=== PATIENT | female | born 1970 | race Caucasian/White ===

== ENCOUNTER → 2019-02-11 | Day surgery (SDC) | payer BC ==
[~2019-02-11] MED LIST: ADDERALL 20 MG20 MG PO; AMBIEN10 MG PO; BUPIVACAINE 0.25%/EPI 30ML SDV INJ ONE; CALCIUM PO; DEXAMETHASONE SOD PHOS INJ 4 MG/ML VIAL ONE; EPHEDRINE SULFATE INJ 50 MG/10 ML SYR ONE; FENTANYL CITRATE/PF 100MCG/2 ML INJ ONE; KETOROLAC TROMETHAMINE 30 MG/ML VIAL ONE; LEXAPRO10 MG PO; LIDOCAINE HCL 2% LOCAL INJ 5 ML SDV VIAL INJ ONE; MIDAZOLAM HCL 2 MG/2 ML VIAL ONE; MULTI-VITAMIN1 EACH PO; ONDANSETRON HCL INJ 2MG/ML 2ML 2 MG/ML VIAL ONE; PROPOFOL IV EMULSION 10 MG/ML 20 ML VIAL ONE; RISPERDAL1 MG PO; SEVOFLURANE INHAL SOLN 250 ML PEN BTL ONE; TOPAMAX25 MG PO; VITAMIN B12 PO; VITAMIN C PO; VITAMIN D PO; VITAMIN E PO; WELLBUTRIN SR150 MG PO; Z.0.LAMICTAL200 MG PO; Z.0.PAXIL40 MG PO; tenex PO
--- OUTSIDE RECORDS SUMMARY | 2019-02-11 09:03 | XMS REPORT ---
Author Author [facility] Address Unknown Phone Unavailable Care Team Providers Care Per Diem Clerk Name Role Phone Chan MARS Unavailable Unavailable VLADIMIR WILLS Unavailable Unavailable Problems This patient has no known problems. Allergies, Adverse Reactions, Alerts This patient has no known allergies or adverse reactions. Medications This patient has no known medications. Results Test Description Test Time Test Comments Text Results Atomic Results Result Comments US RENAL RETROPERITONEAL COMP 2018-07-01 14:01:00 [place] [address] Patient Name: TOM CHO MR #: [id number] : 1970 Age/Sex: 47/F Req #: [id number] Adm Physician: Ordered by: HAJA MARS MD Report #: [id number] Location: Room/Bed: Procedure: [id number] US/US RENAL RETROPERITONEAL COMP Exam Date: 07/01/18 Exam Time: 0833 REPORT STATUS: Signed EXAMINATION: Renal ultrasound. CLINICAL HISTORY :Recurrent urinary tract infection COMPARISON: CT abdomen and pelvis 09/21/2011 TECHNIQUE: Grayscale and color Doppler evaluation of the kidneys and bladder was performed in transverse and longitudinal planes. DISCUSSION: RIGHT KIDNEY: The right kidney measures 11.2 cm in length and shows normal renal cortical echogenicity. No hydronephrosis, shadowing calculi or solid mass lesions. LEFT KIDNEY: The left kidney measures 10.8 cm in length and shows normal renal cortical echogenicity. No hydronephrosis, shadowing calculi or solid mass lesions. BLADDER: Unremarkable. Right and left ureteral jets are identified. IMPRESSION: 1. Unremarkable renal ultrasound. Signed by: Dr. Keaton Cleary M.D. on 07/01/2018 2:03 PM Dictated By: KEATON CLEARY MD 140 Transcribed By: JENARO on 07/01/18 140 COPY TO: HAJA MARS MD BREAST ULTRASOUND BILATERAL 2018-03-26 16:24:32 - BREAST ULTRASOUND BILATERALULTRASOUND OF BOTH BREASTS AND BOTH AXILLA: 03/26/2018CLINICAL: Supplemental Screening for Dense Breast. No prior exams were available for comparison. Real-time ultrasound of both breasts and both axilla was performed. No abnormalities were seen sonographically in either axilla. Benign cysts and dilated ducts were seen bilaterally. No solid masses were seen. Clinical breast exam was unremarkable. IMPRESSION: BENIGN There is no sonographic evidence of malignancy. Patient has been informed that she has areas of dense breast tissue that could make it difficult to find a small cancer. A screening mammogram and supplemental ultrasound for dense breast tissue is recommended in 1 year.Sun Cruz M.D. dm/:03/26/2018 16:24:32 Entry: - 03/27/2018 10:34:31Imaging Technologist: Debbi DUNN, [facility] sent: BIRADS 1-2 Normal Ultrasound BI-RADS: 2 Benign SCR MAMM BILATERAL DAMON CAD DIGITAL 2018-03-26 16:23:37 - SCR MAMM BILATERAL DAMON CAD DIGITALBILATERAL DIGITAL SCREENING MAMMOGRAM 3D/2D WITH CAD: 03/26/2018CLINICAL: Asymptomatic. Digital breast tomosynthesis was performed in addition to routine CC and MLO views. Current mammographic images were evaluated by either a [employer]olar M-Vu or a [employer] ImageChecker CAD (computer aided detection system). Comparison is made to exam dated 02/28/2017 mammogram - [facility]. The tissue of both breasts is heterogeneously dense. This may lower the sensitivity of mammography. No suspicious mass, architectural distortion, malignant type calcification, or lymph node abnormality detected. IMPRESSION: NEGATIVEUltrasound pending for additional evaluation. There is no mammographic evidence of malignancy. Sun kovacs/penrad:03/26/2018 16:23:37 Entry: lc - 03/27/2018 08:31:33Imaging Technologist: Laura DUNN, [facility]amm[facility] BI-RADS: 1 Negative HEPTOBILIARY W PHARM [place] [address] Patient Name: TOM RANGEL MR #: [id number] : 1970 Age/Sex: 46/F Acct #: [id number] Req #: [id number] Adm Physician: Ordered by: VLADIMIR WILLS DO Report #: [id number] Location: [place] Room/Bed: Procedure: [id number] NM/HEPTOBILIARY W PHARM Exam Date: 01/10/17 Exam Time: 0830 REPORT STATUS: Signed Hepatobiliary Scan with Gallbladder Ejection Fraction Clinical information: 46 F with RUQ abdominal pain x 2-3 weeks Technique: Following intravenous administration of 6.2 millicuries of Tc-99m mebrofenin, dynamic images of the abdomen in the anterior projection were obtained through 30 minutes. Sincalide (CCK analog) 1.5 micrograms was administered intravenously over 30 minutes with additional imaging for determination of gallbladder ejection fraction. Discussion: Perfusion of the liver is normal. Extraction of tracer by the liver parenchyma is normal. Tracer appears promptly within the biliary tract. The gallbladder begins to fill by 10 minutes post injection of tracer and fills adequately. Tracer is seen in the small bowel during the sincalide infusion. The gallbladder ejection fraction with sincalide is 24% (normal greater than 40%). Impression: 1. Filling of the gallbladder excludes acute cystic duct obstruction/acute cholecystitis. 2. The decreased gallbladder ejection fraction of 24% supports the clinical diagnosis of chronic cholecystitis/gallbladder dyskinesia. Signed by: Dr. Ana Hahn M.D. on 01/10/2017 6:05 PM Dictated By: ANA HAHN MD 04 Transcribed By: JENARO on 01/10/171804 COPY TO: VLADIMIR WILLS DO US ABDOMEN COMPLETE [place] [address] Patient Name: TOM CHO MR #: [id number] : 1970 Age/Sex: 46/F Req #: [id number] [facility] Physician: Ordered by: VLADIMIR WILLS DO Report #: [id number] Location: [place] Room/Bed: Procedure: [id number] US/US ABDOMEN COMPLETE Exam Date: 12/24/16 Exam Time: 0816 REPORT STATUS: Signed PROCEDURE: ABDOMINAL ULTRASOUND COMPARISON: None. INDICATIONS: RUQ Pain FINDINGS: Liver: 12.3 cm. Normal hepatic parenchymal echogenicity. No focal mass. Main portal vein: 1.3 cm. Hepatopedal flow. Gallbladder: No echogenic calculi, gallbladder wall thickening, or pericholecystic fluid. The gallbladder measures 12.6 cm in greatest length and 4.4 cm in greatest width. Common Bile Duct: 3.0 mm. No echogenic filling defect. Sonographic Oh's sign: Negative. Right kidney: 11.9 cm. No solid or cystic mass, echogenic calculi, or hydronephrosis. Normal parenchymal echogenicity. Left kidney: 10.8 cm. No solid or cystic mass, echogenic calculi, or hydronephrosis. Normal parenchymal echogenicity. Spleen: 10.1 cm. No focal mass. Pancreas: The pancreas was insufficiently visualized for comment secondary to overlying bowel gas. Inferior vena cava: Normal. Aorta: Normal. Ascites: None. CONCLUSION: 1. No acute sonographic abnormality. 2. Prominent gallbladder may represent gallbladder hydrops. No sonographic evidence of cholelithiasis or cholecystitis. Dictated by: Anuja Slater M.D. on 12/24/2016 at 9:00 Electronically approved by: Anuja Slater M.D. on 12/24/2016 at 9:00 Dictated By: ANUJA SLATER MD 9 Transcribed By: KAITLIN on 12/24/16899 COPY TO: VLADIMIR WILLS DO
--- OUTSIDE RECORDS SUMMARY | 2019-02-11 09:03 | XMS REPORT ---
Author Author Admin, [place] Organization Unknown Address Unknown Phone Unavailable PROBLEMS Condition Status Date Provider Notes ANXIETY DISORDER, OTHER SPECIFIED active Domo Hayes ADHD, OTHER SPECIFIED active Domo Hayes DEPRESSIVE DISORDER, OTHER SPECIFIED active Domo Hayes ENCOUNTERS Date Type Provider Location Encounter Diagnosis - [facility]ulatory Encounter Domo Hayes [facility]K - Ambulatory Encounter Domo Hayes [facility] UNK - Ambulatory Encounter Domo Hayes [facility] UNK - Ambulatory Encounter Domo Pérez [facility] UNK - Ambulatory Encounter Domo Marie [facility] UNK - Ambulatory Encounter Domo Bañuelos [facility] UNK - Ambulatory Encounter Domo Hayes [facility] UNK - Ambulatory Encounter Domo Hayes [facility] UNK - Ambulatory Encounter Domo Hayes [facility] UNK - Ambulatory Encounter Domo Pérez [facility] DEPRESSIVE DISORDER, OTHER SPECIFIEDADHD, OTHER SPECIFIEDANXIETY DISORDER, OTHER SPECIFIED - Ambulatory Encounter Shagufta [facility] UNK VITAL SIGNS No Information Available Allergies No Known Allergy Information REASON FOR REFERRAL No Information Available RESULTS No Information Available HISTORY OF IMMUNIZATIONS No Information Available HISTORY OF MEDICATION USE Medication Instructions Dates Provider Comments AMBIEN CR 12.5 MG ORAL TABLET EXTENDED RELEASE Take 1 tab By Mouth take at bedtime Domo Hayes WELLBUTRIN XL 300 MG ORAL TABLET EXTENDED RELEASE 24 HOUR Take 1 tab By Mouth Every Morning Domo Hayes LEXAPRO 20 MG ORAL TABLET Take 2 tabs By Mouth take at bedtime Domo Hayes GUANFACINE HCL 1 MG ORAL TABLET Take 1 tab By Mouth Twice a Day Domo Hayes RITALIN 10 MG ORAL TABLET Take 1 tab By Mouth Twice a Day Domo Hayes TOPAMAX 100 MG ORAL TABLET Take 1 tab By Mouth Twice a Day Domo Hayes SOCIAL HISTORY Date Observation Value Provider " smoking status never smoker Domo Hayes drug use, illicit Never Domo Hayes " alcohol use Currently Domo Hayes " smoking status never smoker Domo Hayes " social history reviewed E&M reviewed today Domo Hayes" social history E&M Grew up in [place] - 3rd of 5 children Currently seperated - for 3 years - 3 previous times Boyfriend living with her currently 2nd marrige - first marriage - 2 years 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 [employer] 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 Domo Hayes " family support Grew up in [place] - 3rd of 5 children Domo Hayes " home/family situation, assessment Currently seperated - for 3 years - 3 previous times Boyfriend living with her currently 2nd marrige - first marriage - 2 years Domo Hayes FUNCTIONAL STATUS No Information Available MENTAL STATUS Date Observation Value Provider mental status assessment, judgment fair Domo Hayes " insight (mental status exam) fair Domo Hayes" Mental Status Exam: intelligence oriented to person, oriented to place, oriented to time, oriented to reality Domo Hayes" hallucinations none Domo Hayes" thought content (mental status exam) (E&M) lucid Domo Hayes " mental status assessment, process goal-directed, logical Domo Hayes" mental status assessment, sensorium alert, clear Domo Hayes" affect (mental status exam) congruent, euthymic Domo Hayes" mental status assessment, speech activity normal flow, normal pace, normal pressure, normal rate, normal tone, normal volume, spontaneous Domo Tilleyo " mental status assessment, motor activity normal gait, normal posture, fidgety Domo Hayes " behavior (mental status exam) appropriate, cooperative, responsive Domo Tilleyo " mental appearance (mental status exam) adequate hygiene, appropriate dress Domo Hayes anxiety worry a lot, irritability, many physical complaints, muscle tension Domo Hayes" mental status assessment, judgment fair Domo Hayes" insight (mental status exam) fair Domo Tilleyo " Mental Status Exam: intelligence adequate fund of information, intact memory processes, oriented to person, oriented to place, oriented to time, oriented to reality Domo Hayes " hallucinations none Domo Hayes" thought content (mental status exam) (E&M) lucid Domo Hayes" mental status assessment, process able to abstract, goal-directed, logical Domo Hayes" mental status assessment, sensorium alert, clear Domo Hayes" affect (mental status exam) congruent, euthymic Domo Tilleyo " mental status assessment, speech activity normal flow, normal pace, normal pressure, normal rate, normal tone, normal volume, spontaneous Domo Hayes " mental status assessment, motor activity normal gait, normal posture, fidgety Domo Hayes " behavior (mental status exam) appropriate, cooperative, responsive Domo Tilleyo " mental appearance (mental status exam) adequate hygiene, appropriate dress Domo Hayes MEDICAL EQUIPMENT No Information Available FAMILY HISTORY No Information Available INSURANCE PROVIDERS No Information Available ADVANCE DIRECTIVES No Information Available TREATMENT PLAN Date Name Est Patient Detailed - 37459 Diagnostic evaluation with medical - 73359 HISTORY OF PROCEDURES Procedure Date Procedure Name Provider Procedure Notes Status Diagnostic evaluation with medical - 22247 Domo Hayes completed GOALS No Information Available HEALTH CONCERNS No Information Available
--- OUTSIDE RECORDS SUMMARY | 2019-02-11 09:04 | XMS REPORT ---
Author Author Admin, [place] Organization Unknown Address Unknown Phone Unavailable PROBLEMS Condition Status Date Provider Notes ANXIETY DISORDER, OTHER SPECIFIED active Domo Hayes ADHD, OTHER SPECIFIED active Domo Hayes DEPRESSIVE DISORDER, OTHER SPECIFIED active Domo Hayes ENCOUNTERS Date Type Provider Location Encounter Diagnosis - Ambulatory Encounter Domo Hayes [facility] UNK - Ambulatory Encounter Domo Pérez [facility] UNK - Ambulatory Encounter Domo Bañuelos [facility] UNK - Ambulatory Encounter Domo Hayes [facility] UNK - Ambulatory Encounter Domo Hayes [facility] UNK - Ambulatory Encounter Domo Hayes [facility] UNK - Ambulatory Encounter Doom Pérez [facility] UNK - Ambulatory Encounter Domo Marie [facility]placed [facility] UNK - Ambulatory Encounter Domo Bañuelos [facility] UNK - Ambulatory Encounter Domo Hayes [facility] UNK - Ambulatory Encounter Domo Hayes [facility] UNK - Ambulatory Encounter Domo Hayes [facility] UNK - Ambulatory Encounter Domo Hayes Meredith Pérez [facility] DEPRESSIVE DISORDER, OTHER SPECIFIEDADHD, OTHER SPECIFIEDANXIETY DISORDER, OTHER SPECIFIED - Ambulatory Encounter Shagufta Henderson Replaced [facility] UNK VITAL SIGNS No Information Available Allergies No Known Allergy Information REASON FOR REFERRAL No Information Available RESULTS No Information Available HISTORY OF IMMUNIZATIONS No Information Available HISTORY OF MEDICATION USE Medication Instructions Dates Provider Comments AMBIEN 10 MG ORAL TABLET Take 1 tab By Mouth take at bedtime Domo Hayes WELLBUTRIN XL 300 MG ORAL TABLET EXTENDED RELEASE 24 HOUR Take 1 tab By Mouth Every Morning Domo Hayes LEXAPRO 20 MG ORAL TABLET Take 2 tabs By Mouth take at bedtime Domo Hayes GUANFACINE HCL 1 MG ORAL TABLET Take 1 tab By Mouth Twice a Day Domo Hayes ADDERALL 20 MG ORAL TABLET Take 1 tab By Mouth Twice a Day Domo Hayes TOPAMAX 100 MG ORAL TABLET Take 1 tab By Mouth Twice a Day Domo Hayes SOCIAL HISTORY Date Observation Value Provider smoking status never smoker Domo Hayes " smoking status never smoker Domo Hayes drug use, illicit Never Domo Hayes " alcohol use Currently Domo Hayes " smoking status never smoker Domo Hayes " social history reviewed E&M reviewed today Domo Hayes" social history E&M Grew up in [place] - 3rd of 5 children Currently seperated - for 3 years - 3 previous times Boyfriend living with her currently 2nd marrige - first marriage - 2 years 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 [employer] Domo Hayes " family support Grew up in [place] - 3rd of 5 children Domo Hayes " home/family situation, assessment Currently seperated - for 3 years - 3 previous times Boyfriend living with her currently 2nd marrige - first marriage - 2 years Domo Hayes FUNCTIONAL STATUS No Information Available MENTAL STATUS Date Observation Value Provider mental status assessment, judgment fair Domo Hayes " insight (mental status exam) fair, limited Domo Hayes" Mental Status Exam: intelligence oriented to person, oriented to place, oriented to time, oriented to reality Domo Hayes" hallucinations none Domo Berno " thought content (mental status exam) (E&M) lucid Domo Tilleyo " mental status assessment, process goal-directed, logical Domo Berno " mental status assessment, sensorium alert, clear Domo Berno " affect (mental status exam) incongruent, intense Domo Jareko " mood (mental status exam) " OK " Domo Tilleyo " mental status assessment, speech activity normal flow, normal pace, normal pressure, normal rate, normal tone, normal volume, spontaneous Domo Berno " mental status assessment, motor activity in wheelchair Domo Jareko " behavior (mental status exam) appropriate, cooperative, responsive, fair EC Domo Tilleyo " mental appearance (mental status exam) adequate hygiene, appropriate dress Domo Hayes mental status assessment, judgment fair Domo Tilleyo " insight (mental status exam) fair Domo Berno " Mental Status Exam: intelligence oriented to person, oriented to place, oriented to time, oriented to reality Domo Jareko " hallucinations none Domo Berno " thought content (mental status exam) (E&M) lucid Domo Tilleyo " mental status assessment, process goal-directed, logical Domo Berno " mental status assessment, sensorium alert, clear Domo Berno " affect (mental status exam) congruent, euthymic Domo Tilleyo " mental status assessment, speech activity normal flow, normal pace, normal pressure, normal rate, normal tone, normal volume, spontaneous Domo Berno " mental status assessment, motor activity normal gait, normal posture, fidgety Domo Tilleyo " behavior (mental status exam) appropriate, cooperative, responsive Domo Tilleyo " mental appearance (mental status exam) adequate hygiene, appropriate dress Domo Hayes anxiety worry a lot, irritability, many physical complaints, muscle tension Domo Tilleyo " mental status assessment, judgment fair Domo Tilleyo " insight (mental status exam) fair Domo Berno " Mental Status Exam: intelligence adequate fund of information, intact memory processes, oriented to person, oriented to place, oriented to time, oriented to reality Domo Berno " hallucinations none Domo Berno " thought content (mental status exam) (E&M) lucid Domo Tilleyo " mental status assessment, process able to abstract, goal-directed, logical Domo Berno " mental status assessment, sensorium alert, clear Domo Berno " affect (mental status exam) congruent, euthymic Domo Berno " mental status assessment, speech activity normal flow, normal pace, normal pressure, normal rate, normal tone, normal volume, spontaneous Domo Hayes " mental status assessment, motor activity normal gait, normal posture, fidgety Domo Hayes" behavior (mental status exam) appropriate, cooperative, responsive Domo Hayes" mental appearance (mental status exam) adequate hygiene, appropriate dress Domo Hayes MEDICAL EQUIPMENT No Information Available FAMILY HISTORY No Information Available INSURANCE PROVIDERS No Information Available ADVANCE DIRECTIVES No Information Available TREATMENT PLAN Date Name Est Patient Detailed - 01925 Est Patient Detailed - 04953 Diagnostic evaluation with medical - 96504 HISTORY OF PROCEDURES Procedure Date Procedure Name Provider Procedure Notes Status Diagnostic evaluation with medical - 08992 Domo Hayes completed GOALS No Information Available HEALTH CONCERNS No Information Available
--- OUTSIDE RECORDS SUMMARY | 2019-02-11 09:04 | XMS REPORT ---
Author Author Admin, [place] Organization Unknown Address Unknown Phone Unavailable PROBLEMS Condition Status Date Provider Notes ANXIETY DISORDER, OTHER SPECIFIED active Domo Hayes ADHD, OTHER SPECIFIED active Domo Hayes DEPRESSIVE DISORDER, OTHER SPECIFIED active Domo Hayes ENCOUNTERS Date Type Provider Location Encounter Diagnosis - Ambulatory Encounter Domo Hayes [facility] UNK - Ambulatory Encounter Domo Pérez [facility] UNK - Ambulatory Encounter Domo Bañuelos [facility] UNK - Ambulatory Encounter Domo Hayes [facility] UNK - Ambulatory Encounter Domo Hayes [facility] UNK - Ambulatory Encounter Domo Hayes [facility] UNK - Ambulatory Encounter Domo Pérez [facility] UNK - Ambulatory Encounter Domo Marie [facility] UNK - Ambulatory Encounter Domo Bañuelos [facility] UNK - Ambulatory Encounter Domo Hayes [facility] UNK - Ambulatory Encounter Domo Hayes [facility] UNK - Ambulatory Encounter Domo Hayes [facility] UNK - Ambulatory Encounter Domo Hayes Meredith Pérez [facility] DEPRESSIVE DISORDER, OTHER SPECIFIEDADHD, OTHER SPECIFIEDANXIETY DISORDER, OTHER SPECIFIED - Ambulatory Encounter Shagufta Henderson [facility] UNK VITAL SIGNS No Information Available [...] Hayes" social history E&M Grew up in [place] - 3rd of 5 children Currently seperated - for 3 years - 3 previous times Boyfriend living with her currently 2nd marrige - first marriage - 2 years 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
[2019-02-11] MEDS: CEFTRIAXONE SOD 1 GM/NS 50 ML 50 ML IV ONE (10:14)
[2019-02-11 13:00] VITALS: BP 101/55
--- NOTE | 2019-02-13 19:12 | Operative Report ---
DATE OF PROCEDURE: 02/11/2019 SURGEON: Christiano Rosario MD PREOPERATIVE DIAGNOSIS: Stress urinary incontinence. POSTOPERATIVE DIAGNOSIS: Stress urinary incontinence. OPERATIVE PROCEDURE PERFORMED: Pubovaginal sling using [employer] Fit Advantage. ANESTHESIA: General anesthesia. ESTIMATED BLOOD LOSS: Minimal. INDICATIONS: Ms. Germania Myers is a 48-year-old woman with a long history of mixed urinary incontinence, which has failed conservative therapy. She now presents for management of the stress component. PROCEDURE IN DETAIL: The patient was brought into the operating room, placed in supine position and after administration of general anesthesia, was placed in dorsal lithotomy position and prepped and draped in usual sterile fashion. A Martinez catheter was placed and the balloon inflated. After infiltration using 0.25% Marcaine with epinephrine, a 1 cm incision was made in the mid anterior vaginal mucosa approximately 1 cm proximal to the urethral meatus. Dissection was carried out in and around the periurethral tissues using Metzenbaum scissors. The [employer] Fit Advantage trocars were placed first on the right side and subsequently on the left side and allowed to exit the retropubic space. The trocar exit sites were also infiltrated using 0.25% Marcaine. The Martinez catheter was removed and cystoscopy was performed. This revealed no evidence of injury to the bladder or to the urethra. The bladder was drained in its entirety and the cystoscope was removed. The sling was pulled superiorly such that there was 1 cm gap between the posterior urethra and the sling. The vaginal mucosa was then pulled down over this and then reapproximated closed using a [id number] Vicryl suture. A vaginal pack was subsequently placed after irrigation of the vagina. The sling was cut flushed with the anterior abdominal wall and the trocar exit sites were closed using Dermabond. The patient was returned to supine position and anesthesia was reversed. She was transferred to a bed and taken to the postanesthesia care unit in good condition. Of note, the needle and instrument count was correct at the conclusion of the case. Christiano Rosario MD HLW/MODL /[id number]
== END | disposition home or self-care (01) ==
LOC: OR 09:01
PROVIDERS: ATTEND Urology
DX: N39.3 Stress incontinence (female) (male) (principal); N20.0 Calculus of kidney; R00.1 Bradycardia, unspecified; F32.9 Major depressive disorder, single episode, unspecified; F41.9 Anxiety disorder, unspecified
CPT/HCPCS: 36415; 57288; 84702; 93005; C1758; C1771; J0696; J1100; J1885; J2001; J2250; J2405; J2704; J3010

== ENCOUNTER → 2019-06-18 | Day surgery (SDC) | payer BC ==
[~2019-06-18] MED LIST changes: +ACETAMINOPHEN/CODEINE 300MG - 30MG TAB ONE; +BACTRIM DS TAB1 EACH PO; -BUPIVACAINE 0.25%/EPI 30ML SDV INJ ONE; +BUPIVACAINE HCL 0.5% INJ 30 ML VIAL INJ ONE; +CLINDAMYCIN HC150 MG PO; +CLINDAMYCIN PHOS 900MG/ 50ML 50 ML IV ONE; -EPHEDRINE SULFATE INJ 50 MG/10 ML SYR ONE; -KETOROLAC TROMETHAMINE 30 MG/ML VIAL ONE; -MIDAZOLAM HCL 2 MG/2 ML VIAL ONE; +SEROQUEL100 MG PO; +TENEX PO
--- OUTSIDE RECORDS SUMMARY | 2019-06-18 10:21 | XMS REPORT | Summary of Care ---
Author Author Adina Weller R.N. Unknown Address Unknown Phone Unavailable Care Team Providers Care Canceling Machine Operator Name Role Phone JAQUELIN LOMBARDI M.D. Unavailable Unavailable MALISSA GUAMAN Unavailable Unavailable PRASANNA SAWYER MD Unavailable Unavailable JAQUELIN LOMBARDI MD Unavailable Unavailable Functional Status Name Dates Details Functional status health issues are not documented Status: Name Dates Details Cognitive status health issues are not documented Status: Problems Name Dates Details Closed displaced intra-articular fracture of left calcaneus, initial encounter (825.0, K66.160B) Status: Active Medications Name Dates Details Acetaminophen-Codeine 300-30 MG Oral Tablet TAKE 1 TABLET EVERY 8 HOURS PRN Pain Quantity: 20 JAQUELIN LOMBARDI M.D. * Start : 26-Jan-2019 Active Gabapentin 300 MG Oral Capsule TAKE 1 CAPSULE EVERY 8 HOURS * Quantity: 60 Refills: 0 MALISSA GUAMAN * Start : 02-Feb-2019 Active Allergies and Adverse Reactions Name Dates Details Allergy history not documented Status: Procedures Procedure Dates Details [U] XR CALCANEUS (HEEL) 2 VWS, MIN. LEFT [id number] Date: 02-Apr-2019 Immunization Name Dates Details Immunizations not documented Social History Name Dates Details Unknown if ever smoked Vital Signs Date Test Result Details No Known Vitals to report Results Date Description Value Details Results not documented Plan of Care Name Dates Details Planned Observations Planned Goals not documented Planned Encounters Appointment; JAQUELIN LOMBARDI M.D. On: 13-Apr-2019 8:30 Instructions Name Dates Details Instructions not documented Encounters Appointment; JAQUELIN LOMBARDI M.D. Encounter Diagnosis: Problem not documented On: 05-Jan-2019 7:30 Appointment; JAQUELIN LOMBARDI M.D. Encounter Diagnosis: Problem not documented On: 11-Jan-2019 7:30 Appointment; JAQUELIN LOMBARDI M.D. Encounter Diagnosis: Problem not documented On: 26-Jan-2019 8:30 Appointment; MALISSA LIPSCOMB P.A. Encounter Diagnosis: Problem not documented On: 02-Feb-2019 8:30 Appointment; JAQUELIN LOMBARDI M.D. Encounter Diagnosis: Problem not documented On: 02-Mar-2019 9:15
--- OUTSIDE RECORDS SUMMARY | 2019-06-18 10:21 | XMS REPORT | Summary of Care ---
Author Author Dayami Pennington M.A. Unknown Address Unknown Phone Unavailable Care Team Providers Care Foreign Language Teacher Name Role Phone JAQUELIN LOMBARDI M.D. Unavailable Unavailable MALISSA GUAMAN Unavailable Unavailable PRASANNA SAWYER MD Unavailable Unavailable JAQUELIN LOMBARDI MD Unavailable Unavailable Functional Status Name Dates Details Functional status health issues are not documented Status: Name Dates Details Cognitive status health issues are not documented Status: Problems Name Dates Details Closed displaced intra-articular fracture of left calcaneus, initial encounter (825.0, L56.001D) Status: Active Medications Name Dates Details Acetaminophen-Codeine 300-30 MG Oral Tablet TAKE 1 TABLET EVERY 8 HOURS PRN Pain Quantity: 20 JAQUELIN LOMBARDI M.D. * Start : 26-Jan-2019 Active Gabapentin 300 MG Oral Capsule TAKE 1 CAPSULE EVERY 8 HOURS * Quantity: 60 Refills: 0 DEISI P.A., MALISSA * Start : 02-Feb-2019 Active Allergies and Adverse Reactions Name Dates Details Allergy history not documented Status: Procedures Procedure Dates Details [U] XR CALCANEUS (HEEL) 2 VWS, MIN. LEFT 06391 Date: 30-Apr-2019 Immunization Name Dates Details Immunizations not documented Social History Name Dates Details Unknown if ever smoked Vital Signs Date Test Result Details No Known Vitals to report Results Date Description Value Details [id number] [U] XR CALCANEUS (HEEL) 2 VWS, MIN. LEFT 11536 XR CALCANEUS (HEEL) 2 VWS, MIN. LEFT Images acquired, not reported on this accession number. Plan of Care Name Dates Details Planned Observations Planned Goals not documented Planned Encounters Appointment; JAQUELIN LOMBARDI M.D. On: 04-May-2019 10:00 Appointment; JAQUELIN LOMBARDI M.D. On: 13-Jul-2019 10:00 Interventions Provided Labs/Procedures/Imaging* [U] XR CALCANEUS (HEEL) 2 VWS, MIN. LEFT [id number]; To Be Done: 04 May 2019 Instructions Name Dates Details Instructions not documented [...] Diagnosis: Problem not documented On: 02-Mar-2019 9:15 Appointment; JAQUELIN LOMBARDI M.D. Encounter Diagnosis: Problem not documented On: 13-Apr-2019 8:30 Appointment; JAQUELIN LOMBARDI M.D. Encounter Diagnosis: Problem not documented On: 04-May-2019 10:00
--- OUTSIDE RECORDS SUMMARY | 2019-06-18 10:21 | XMS REPORT ---
Author Author Admin, [place] Organization Unknown Address Unknown Phone Unavailable PROBLEMS Condition Status Date Provider Notes ANXIETY DISORDER, OTHER SPECIFIED active Domo Hayes ADHD, OTHER SPECIFIED active Domo Hayes DEPRESSIVE DISORDER, OTHER SPECIFIED active Domo Hayes ENCOUNTERS Date Type Provider Location Encounter Diagnosis - Ambulatory Encounter Meredith Pérez [facility] UNK - Ambulatory Encounter Domo Hayes [facility]K - Ambulatory Encounter Domo Hayes [facility] UNK - Ambulatory Encounter Domo Pérez [facility] UNK - Ambulatory Encounter Domo Hayes [facility] UNK - Ambulatory Encounter Domo Vora [facility] UNK - Ambulatory Encounter Domo Hayes [facility] UNK - Ambulatory Encounter Domo Pérez [facility] UNK - Ambulatory Encounter Domo Bañuelos [facility] UNK - Ambulatory Encounter Domo Hayes [facility] UNK - Ambulatory Encounter Domo Hayes [facility] UNK - Ambulatory Encounter Domo Hayes [facility] UNK - Ambulatory Encounter Domo Pérez [facility] UNK - Ambulatory Encounter Domo Jarekaubrey Pérez [facility] UNK - Ambulatory Encounter Domo Tilleyaubrey Hayes [facility] UNK - Ambulatory Encounter Domo Jarekaubrey Hayes [facility] UNK - Ambulatory Encounter Domo Tilleyaubrey Hayes [facility] UNK - Ambulatory Encounter Domo Jarekaubrey Hayes [facility] UNK - Ambulatory Encounter Domo Tilleyaubrey Pérez [facility] DEPRESSIVE DISORDER, OTHER SPECIFIEDADHD, OTHER SPECIFIEDANXIETY DISORDER, OTHER SPECIFIED - Ambulatory Encounter Shagufta Henderson [facility] VITAL SIGNS Date Observation Value Provider blood pressure, diastolic 78 mm[Hg] Meredith Beto " blood pressure, systolic 141 mm[Hg] Meredith Beto " pulse rate E&M 75 /min Meredith Beto " weight E&M 126 lbs. Meredith Beto " weight in kilograms E&M 57.27 kg Meredith Beto " method used to obtain blood pressure automatic Meredith Beto " Blood Pressure Position 01 sitting Meredith Beto " blood pressure, site #1 left arm Meredith Beto " height E&M 61.50 [in_i] Meredith Beto " height in centimeters E&M 156.21 cm Meredith Beto blood pressure, diastolic 77 mm[Hg] Crystal Vora " blood pressure, systolic 127 mm[Hg] Crystal Vora " pulse rate E&M 71 /min Crystal Vora " method used to obtain blood pressure automatic Crystal Vora " Blood Pressure Position 01 sitting Crystal Vora " blood pressure, site #1 left arm Crystal Vora " weight E&M 130 lbs. Crystal Vora " weight in kilograms E&M 59.09 kg Crystal Blanka " height E&M 61.50 [in_i] Crystal Walteraneda " height in centimeters E&M 156.21 cm Crystal Walteraneda method used to obtain blood pressure automatic Meredith Beto " Blood Pressure Position 01 sitting Meredith Beto " blood pressure, site #1 right arm Meredith Beto " blood pressure, diastolic 77 mm[Hg] Meredith Beto " blood pressure, systolic 128 mm[Hg] Meredith Beto " pulse rate E&M 80 /min Meredith Beto " weight E&M 201.25 lbs. Meredith Beto " weight in kilograms E&M 91.48 kg Meredith Beto " height E&M 61.50 [in_i] Meredith Beto " height in centimeters E&M 156.21 cm Meredith Beto method used to obtain blood pressure automatic Meredith Beto " Blood Pressure Position 01 sitting Meredith Beto " blood pressure, site #1 left arm Meredith Beto " blood pressure, diastolic 81 mm[Hg] Meredith Beto " blood pressure, systolic 130 mm[Hg] Meredith Beto " pulse rate E&M 79 /min Meredith Beto " weight E&M 132.38 lbs. Meredith Beto " weight in kilograms E&M 60.17 kg Meredith Beto " height E&M 61.50 [in_i] Meredith Beto " height in centimeters E&M 156.21 cm Meredith Beto method used to obtain blood pressure automatic Meredith Beto " Blood Pressure Position 01 sitting Meredith Beto " blood pressure, site #1 right arm Meredith Beto " blood pressure, diastolic 76 mm[Hg] Meredith Beto " blood pressure, systolic 127 mm[Hg] Meredith Beto " pulse rate E&M 74 /min Meredith Beto " weight E&M 132.13 lbs. Meredith Beto " weight in kilograms E&M 60.06 kg Meredith Beto " height in centimeters E&M 156.21 cm Meredith Beto " height E&M 61.5 [in_i] Meredith Beto Allergies No Known Allergy Information REASON FOR REFERRAL No Information Available RESULTS No Information Available HISTORY OF IMMUNIZATIONS No Information Available HISTORY OF MEDICATION USE Medication Instructions Dates Provider Comments SEROQUEL 100 MG ORAL TABLET Take 1 tab By Mouth take at bedtime Domo Hayes AMBIEN 10 MG ORAL TABLET Take 1 tab By Mouth take at bedtime Domo Hayes WELLBUTRIN XL 300 MG ORAL TABLET EXTENDED RELEASE 24 HOUR Take 1 tab By Mouth Every Morning Domo Freddy LEXAPRO 20 MG ORAL TABLET Take 2 tabs By Mouth take at bedtime Domo Freddy GUANFACINE 1 MG TABLET TAKE 1 TAB BY MOUTH TWICE A DAY Domo Hayes ADDERALL 20 MG ORAL TABLET Take 1 tab By Mouth Twice a Day Domo Freddy TOPIRAMATE 100 MG TABLET TAKE 1 TABLET BY MOUTH TWICE A DAY Domo Hayes SOCIAL HISTORY Date Observation Value Provider smoking status never smoker Domo Hayes smoking status never smoker Domo Hayes smoking status never smoker Domo Hayes " smoking status never smoker Domo Hayes drug use, illicit Never Domo Hayes " alcohol use Currently Domo Hayes " smoking status never smoker Domo Hayes " social history reviewed E&M reviewed today Domo Hayes" social history E&M Grew up in [place] - 3rd of 5 children Currently seperated - for 3 years - 3 previous times Boyfriend living with her currently 2nd marrige - first marriage - 2 years 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 [employer] 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 Domo Hayes " family support Grew up in [place] - 3rd of 5 children Domo Hayes " home/family situation, assessment Currently seperated - for 3 years - 3 previous times Boyfriend living with her currently 2nd marrige - first marriage - 2 years Domo Hayes FUNCTIONAL STATUS No Information Available MENTAL STATUS Date Observation Value Provider mental status assessment, judgment fair Domo Hayes " insight (mental status exam) fairDomo " Mental Status Exam: intelligence oriented to person, oriented to place, oriented to time, oriented to reality Domo Hayes " hallucinations none Domo Hayes " thought content (mental status exam) (E&M) lucid Domo Hayes " mental status assessment, process goal-directed, logical Domo Hayes" mental status assessment, sensorium alert, clear Domo Berno " affect (mental status exam) congruent, euthymic, normal intensity, normal range Domo Berno " mood (mental status exam) " more irritable " Domo Berno " mental status assessment, speech activity normal flow, normal pace, normal pressure, normal rate, normal tone, normal volume, spontaneous Domo Berno " mental status assessment, motor activity wearing boot Domo Berno " behavior (mental status exam) appropriate, cooperative, responsive, fair EC Domo Berno " mental appearance (mental status exam) adequate hygiene, appropriate dress Domo Tilleyo affect (mental status exam) congruent, euthymic, normal intensity, normal range Domo Berno " mental status assessment, judgment fair Domo Berno " insight (mental status exam) fair, Domo Berno " Mental Status Exam: intelligence oriented to person, oriented to place, oriented to time, oriented to reality Domo Berno " hallucinations none Domo Berno " thought content (mental status exam) (E&M) lucid Domo Berno " mental status assessment, process goal-directed, logical Domo Berno " mental status assessment, sensorium alert, clear Domo Berno " mood (mental status exam) " better " Domo Berno " mental status assessment, speech activity normal flow, normal pace, normal pressure, normal rate, normal tone, normal volume, spontaneous Domo Berno " mental status assessment, motor activity has knee scooter Domo Berno " behavior (mental status exam) appropriate, cooperative, responsive, fair EC Domo Berno " mental appearance (mental status exam) adequate hygiene, appropriate dress Domo Hayes mental status assessment, judgment fair Domo Berno " insight (mental status exam) fair, limited Domo Berno " Mental Status Exam: intelligence oriented to person, oriented to place, oriented to time, oriented to reality Domo Berno " hallucinations none Domo Berno " thought content (mental status exam) (E&M) lucid Domo Berno " mental status assessment, process goal-directed, logical Domo Berno " mental status assessment, sensorium alert, clear Domo Berno " affect (mental status exam) incongruent, intense Domo Berno " mood (mental status exam) " OK " Domo Berno " mental status assessment, speech activity normal flow, normal pace, normal pressure, normal rate, normal tone, normal volume, spontaneous Domo Berno " mental status assessment, motor activity in wheelchair Domo Berno " behavior (mental status exam) appropriate, cooperative, responsive, fair EC Domo Tilleyo " mental appearance (mental status exam) adequate hygiene, appropriate dress Domo Tilleyaubrey mental status assessment, judgment fair Domo Tilleyo [...] activity normal gait, normal posture, fidgety Domo Berno " behavior (mental status exam) appropriate, cooperative, responsive Domo Berno " mental appearance (mental status exam) adequate hygiene, appropriate dress Domo Hayes anxiety worry a lot, irritability, many physical complaints, muscle tension Domo Berno " mental status assessment, judgment fair Domo [...] activity normal gait, normal posture, fidgety Domo Berno " behavior (mental status exam) appropriate, cooperative, responsive Domo Berno " mental appearance (mental status exam) adequate hygiene, appropriate dress Domo Tilleyo MEDICAL EQUIPMENT No Information Available FAMILY HISTORY No Information Available INSURANCE PROVIDERS No Information Available ADVANCE DIRECTIVES No Information Available TREATMENT PLAN Date Name Est Patient Detailed - 39267 Est Patient Exp Problem - 38672 Est Patient Detailed - 19103 Est Patient Detailed - 07384 Diagnostic evaluation with medical - 96348 HISTORY OF PROCEDURES Procedure Date Procedure Name Provider Procedure Notes Status Diagnostic evaluation with medical - 52060 Domo Hayes completed GOALS No Information Available HEALTH CONCERNS No Information Available
--- OUTSIDE RECORDS SUMMARY | 2019-06-18 10:21 | XMS REPORT ---
Author Author Admin, [place] Organization Unknown Address Unknown Phone Unavailable PROBLEMS Condition Status Date Provider Notes ANXIETY DISORDER, OTHER SPECIFIED active Domo Hayes ADHD, OTHER SPECIFIED active Domo Hayes DEPRESSIVE DISORDER, OTHER SPECIFIED active Domo Hayes ENCOUNTERS Date Type Provider Location Encounter Diagnosis - Ambulatory Encounter Domo Vora [facility] UNK - Ambulatory Encounter Domo Hayes [facility] - Ambulatory Encounter Domo Pérez [facility] UNK - Ambulatory Encounter Domo Bañuelos [facility] UNK - Ambulatory Encounter Domo Hayes [facility] UNK - Ambulatory Encounter Domo Hayes [facility] UNK - Ambulatory Encounter Domo Hayes [facility] UNK - Ambulatory Encounter Domo Pérez [facility] UN[facility] - Ambulatory Encounter Domo Marie [facility] - Ambulatory Encounter Domo Hayes [facility] UNK - Ambulatory Encounter Domo Hayes [facility] UNK - Ambulatory Encounter Domo Hayes [facility] UNK - Ambulatory Encounter Domo Moreiracy Beto [facility] DEPRESSIVE DISORDER, OTHER SPECIFIEDADHD, OTHER SPECIFIEDANXIETY DISORDER, OTHER SPECIFIED - Ambulatory Encounter Shagufta Henderson [facility] UNK VITAL SIGNS No Information Available Allergies [...] Mouth take at bedtime Domo Hayes GUANFACINE 1 MG TABLET TAKE 1 TAB BY MOUTH TWICE A DAY Domo Hayes ADDERALL 20 MG ORAL TABLET Take 1 tab By Mouth Twice a Day Domo Hayes TOPIRAMATE 100 MG TABLET TAKE 1 TABLET [...] social history reviewed E&M reviewed today Domo Hayes " social history E&M Grew up in [place] - 3rd of 5 children Currently seperated - for 3 years - 3 previous times Boyfriend living with her currently 2nd marrige - first marriage - 2 years 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 [place] [employer] 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 Domo Hayes " family support Grew up in [place] - 3rd of 5 children Domo Hayes " home/family situation, assessment Currently seperated - for 3 years - 3 previous times Boyfriend living with her currently 2nd marrige - first marriage - 2 years Domo Hayes FUNCTIONAL STATUS No Information Available MENTAL STATUS Date Observation Value Provider affect (mental status exam) congruent, euthymic, normal [...] (mental status exam) adequate hygiene, appropriate dress Dmoo Hayes mental status assessment, judgment fair Domo [...] status exam) adequate hygiene, appropriate dress Domo Freddy mental status assessment, judgment fair Domo Berno " insight (mental status exam) fair Domo [...] irritability, many physical complaints, muscle tension Domo Hayes " mental status assessment, judgment fair Domo Hayes " insight (mental status exam) fair Domo Tilleyo " Mental Status Exam: intelligence adequate fund of information, intact memory processes, oriented to person, oriented to place, oriented to time, oriented to reality Domo Hayes " hallucinations none Domo Hayes " thought content (mental status exam) (E&M) lucid Domo Hayes" mental status assessment, process able to abstract, goal-directed, logical Domo Hayes " mental status assessment, sensorium alert, clear Domo Tilleyo " affect (mental status exam) congruent, euthymic [...] Available TREATMENT PLAN Date Name Est Patient Exp Problem - 25050 Est Patient Detailed - 61725 Est Patient Detailed - 98527 Diagnostic evaluation with medical - 42355 HISTORY OF PROCEDURES Procedure Date Procedure Name Provider Procedure Notes Status Diagnostic evaluation with medical - 57168 Domo Hayes completed GOALS No Information Available HEALTH CONCERNS No Information Available
--- OUTSIDE RECORDS SUMMARY | 2019-06-18 10:21 | XMS REPORT | Summary of Care ---
Author Author Shira Chavarria Organization Unknown Address [facility] Phone Unavailable Care Team Providers Care Toolroom Machinist Name Role Phone JAQUELIN LOMBARDI M.D. Unavailable Unavailable Shira Chavarria Unavailable Unavailable MALISSA GUAMAN Unavailable Unavailable PRASANNA SAWYER MD Unavailable Unavailable JAQUELIN LOMBARDI MD Unavailable Unavailable Functional Status Name Dates Details Functional status health issues are not documented Status: Name Dates Details Cognitive status health issues are not documented Status: Problems Name Dates Details Closed displaced intra-articular fracture of left calcaneus, initial encounter (825.0, I72.005L) Status: Active Medications Name Dates Details Acetaminophen-Codeine 300-30 MG Oral Tablet TAKE 1 TABLET EVERY 8 HOURS PRN Pain Quantity: 20 JAQUELIN LOMBARDI M.D. * Start : 26-Jan-2019 Active Gabapentin 300 MG Oral Capsule TAKE 1 CAPSULE EVERY 8 HOURS * Quantity: 60 Refills: 0 DEISI Robert.MALISSA Mijares * Start : 02-Feb-2019 Active Allergies and Adverse Reactions Name Dates Details Allergy history not documented Status: Procedures Procedure Dates Details Procedures not documented Immunization Name Dates Details Immunizations not documented Social History Name Dates Details Unknown if ever smoked Vital Signs Date Test Result Details No Known Vitals to report Results Date Description Value Details [id number] [U] XR CALCANEUS (HEEL) 2 VWS, MIN. LEFT 59457 XR CALCANEUS (HEEL) 2 VWS, MIN. LEFT Images acquired, not reported on this accession number. Plan of Care Name Dates Details Planned Observations Planned Goals not documented Planned Encounters Appointment; JAQUELIN LOMBARDI M.D. On: 13-Jul-2019 10:00 Instructions Name Dates Details Instructions not documented [...]
--- OUTSIDE RECORDS SUMMARY | 2019-06-18 10:21 | XMS REPORT ---
Author Author Admin, [place] Organization Unknown Address Unknown Phone Unavailable PROBLEMS Condition Status Date Provider Notes ANXIETY DISORDER, OTHER SPECIFIED active Domo Hayes ADHD, OTHER SPECIFIED active Domo Hayes DEPRESSIVE DISORDER, OTHER SPECIFIED active Domo Hayes ENCOUNTERS Date Type Provider Location Encounter Diagnosis - Ambulatory Encounter Domo Vora [facility] UNK - Ambulatory Encounter Domo Hayes [facility] - Ambulatory Encounter Domo Pérez [facility] UNK - Ambulatory Encounter Domo Bañuelos [facility] UNK - Ambulatory Encounter Domo Hayes [facility] UNK - Ambulatory Encounter Domo Hayes [facility] UNK - Ambulatory Encounter Domo Hayes [facility] UNK - Ambulatory Encounter Domo Pérez [facility] UN[facility] - Ambulatory Encounter Domo Marie [facility] [...] OTHER SPECIFIED - Ambulatory Encounter Shagufta Henderson [facility] UNK VITAL SIGNS No Information [...] " social history E&M Grew up in [place] - 3rd of 5 children Currently seperated - for 3 years - 3 previous times Boyfriend living with her currently 2nd marrige - first marriage - 2 years 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 [place] [employer] 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 Domo Hayes " family support Grew up in [place] - 3rd of 5 children Domo Hayes [...] (mental status exam) adequate hygiene, appropriate dress Doom Hayes MEDICAL EQUIPMENT No Information Available FAMILY HISTORY No Information Available INSURANCE PROVIDERS No Information Available ADVANCE DIRECTIVES No Information Available TREATMENT PLAN Date Name Est Patient Exp Problem - 21347 Est Patient Detailed - 27688 Est Patient Detailed - 74114 Diagnostic evaluation with medical - 37457 HISTORY OF PROCEDURES Procedure Date Procedure Name Provider Procedure Notes Status Diagnostic evaluation with medical - 43674 Domo Hayes completed GOALS No Information Available HEALTH CONCERNS No Information Available
--- OUTSIDE RECORDS SUMMARY | 2019-06-18 10:22 | XMS REPORT ---
Author Author Admin, [place] Organization Unknown Address Unknown Phone Unavailable PROBLEMS Condition Status Date Provider Notes ANXIETY DISORDER, OTHER SPECIFIED active Domo Hayes ADHD, OTHER SPECIFIED active Domo Hayes DEPRESSIVE DISORDER, OTHER SPECIFIED active Domo Hayes ENCOUNTERS Date Type Provider Location Encounter Diagnosis - Ambulatory Encounter Meredith Pérez [facility]K - Ambulatory Encounter Domo Hayes [facility] - Ambulatory Encounter Domo Hayes [facility] - Ambulatory Encounter Domo Pérez [facility] UNK - Ambulatory Encounter Domo Hayes [facility] UNK - Ambulatory Encounter Domo Vora [facility] UNK - Ambulatory Encounter Domo Hayes [facility] UNK - Ambulatory Encounter Domo Pérez [facility] UNK - Ambulatory Encounter Domo Bañuelos [facility] UNK - Ambulatory Encounter Domo Hayes [facility] UNK - Ambulatory Encounter Domo Hayes [facility] UNK - Ambulatory Encounter Domo Hayes [facility] UNK - Ambulatory Encounter Doom Pérez [facility] UNK - Ambulatory Encounter Domo Jarekaubrey Pérez [facility] UNK - Ambulatory Encounter Domo Tilleyaburey Hayes [facility]K - Ambulatory Encounter Domo Jarekaubrey Hayes [facility] UNK - Ambulatory Encounter Domo Tilleyaubrey Hayes [facility] UNK - Ambulatory Encounter Domo Jarekaubrey Hayes [facility] UNK - Ambulatory Encounter Domo Tilleyaubrey Pérez [facility] DEPRESSIVE DISORDER, OTHER SPECIFIEDADHD, OTHER SPECIFIEDANXIETY DISORDER, OTHER SPECIFIED - Ambulatory Encounter Shagufta Henderson [facility] VITAL SIGNS Date Observation Value [...] Hayes" social history E&M Grew up in [place] - 3rd of 5 children Currently seperated - for 3 years - 3 previous times Boyfriend living with her currently 2nd marrige - first marriage - 2 years 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 [employer] [facility] 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 Domo Hayes " family support Grew up in [place] - 3rd of 5 children Domo Hayes [...] exam) appropriate, cooperative, responsive, fair EC Domo Tlileyo " mental appearance (mental status exam) adequate [...] PLAN Date Name Est Patient Detailed - 09373 Est Patient Exp Problem - 82783 Est Patient Detailed - 80790 Est Patient Detailed - 69834 Diagnostic evaluation with medical - 32030 HISTORY OF PROCEDURES Procedure Date Procedure Name Provider Procedure Notes Status Diagnostic evaluation with medical - 62358 Domo Hayes completed GOALS No Information Available HEALTH CONCERNS No Information Available
--- OUTSIDE RECORDS SUMMARY | 2019-06-18 10:22 | XMS REPORT ---
Author Author Admin, [place] Organization Unknown Address Unknown Phone Unavailable PROBLEMS Condition Status Date Provider Notes ANXIETY DISORDER, OTHER SPECIFIED active Domo Hayes ADHD, OTHER SPECIFIED active Domo Hayes DEPRESSIVE DISORDER, OTHER SPECIFIED active Domo Hayes ENCOUNTERS Date Type Provider Location Encounter Diagnosis - Ambulatory Encounter Meredith Pérez [facility] - Ambulatory Encounter Domo Hayes [facility]K - Ambulatory Encounter Domo Hayes [facility] UNK - Ambulatory Encounter Domo Pérez [facility] UNK - Ambulatory Encounter Domo Hayes [facility] UNK - Ambulatory Encounter Domo Vora [facility] UNK - Ambulatory Encounter Domo Hayes [facility] - Ambulatory Encounter Domo Pérez [facility] UNK - Ambulatory Encounter Domo Bañuelos [facility] UNK - Ambulatory Encounter Domo Hayes [facility] UNK - Ambulatory Encounter Domo Hayes [facility] UNK - Ambulatory Encounter Domo Hayes [facility] UNK - Ambulatory Encounter Domo Pérez [facility] UNK - Ambulatory Encounter Domo Jarekaubrey Pérez [facility] UNK - Ambulatory Encounter Domo Tilleyaubrey Hayes [facility] UNK - Ambulatory Encounter Domo Jarekaubrey Hayes [facility] UNK - Ambulatory Encounter Domo Tilleyaubrey Hayes [facility] UNK - Ambulatory Encounter Domo Jarekaubrey Hayes [facility] UNK - Ambulatory Encounter Domo Tilleyaubrey Pérez [facility] DEPRESSIVE DISORDER, OTHER SPECIFIEDADHD, OTHER SPECIFIEDANXIETY DISORDER, OTHER SPECIFIED - Ambulatory Encounter Shagufta Henderson [facility] K VITAL SIGNS Date Observation Value [...] Hayes" social history E&M Grew up in [place] - 3rd of 5 children Currently seperated - for 3 years - 3 previous times Boyfriend living with her currently 2nd marrige - first marriage - 2 years 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 [employer] 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
--- OUTSIDE RECORDS SUMMARY | 2019-06-18 10:22 | XMS REPORT | Summary of Care ---
Author Author Nithin Robb, Adina Coughlin Unknown Address Unknown Phone Unavailable Care Team Providers Care Upper Stitcher Name Role Phone JAQUELIN LOMBARDI M.D. Unavailable Unavailable MALISSA GUAMAN Unavailable Unavailable PRASANNA SAWYER MD Unavailable Unavailable JAQUELIN LOMBARDI MD Unavailable Unavailable Functional Status Name Dates Details Functional status health issues are not documented Status: Name Dates Details Cognitive status health issues are not documented Status: Problems Name Dates Details Closed displaced intra-articular fracture of left calcaneus, initial encounter (825.0, S92.047W) Status: Active Medications Name Dates Details Acetaminophen-Codeine 300-30 MG Oral Tablet TAKE 1 TABLET EVERY 8 HOURS PRN Pain Quantity: 20 JAQUELIN LOMBARDI M.D. * Start : 26-Jan-2019 Active Gabapentin 300 MG Oral Capsule TAKE 1 CAPSULE EVERY 8 HOURS * Quantity: 60 Refills: 0 DEISI P.A.MALISSA * Start : 02-Feb-2019 Active Acetaminophen-Codeine 300-30 MG Oral Tablet TAKE 1 TABLET EVERY 8 HOURS PRN Pain * Quantity: 30 Refills: 0 JAQUELIN LOMBARDI M.D. * Start : 01-Jun-2019 Active Allergies and Adverse Reactions Name Dates Details Allergy history not documented Status: Procedures Procedure Dates Details [U] XR CALCANEUS (HEEL) 2 VWS, MIN. LEFT 75801 Date: 01-Jun-2019 Immunization Name Dates Details Immunizations not documented Social History Name Dates Details Tobacco smoking consumption unknown (finding) Vital Signs Date Test Result Details No Known Vitals to report Results Date Description Value Details [id number] [U] XRAY ANKLE MIN 3 VWS LEFT 12859 XR ANKLE MIN 3 VWS LEFT Images acquired, not reported on this accession number. Plan of Care Name Dates Details Planned Observations Planned Goals not documented Planned Encounters Appointment; JAQUELIN LOMBARDI M.D. On: 13-Jul-2019 10:00 Interventions Provided Medication Changes* Acetaminophen-Codeine 300-30 MG Oral Tablet - Start Labs/Procedures/Imaging* [U] XR CALCANEUS (HEEL) 2 VWS, MIN. LEFT 30779; To Be Done: 01 Jun 2019 * [U] XRAY ANKLE MIN 3 VWS LEFT 68417; Done: 01 Jun 2019 Instructions Name Dates Details Instructions not [...] Diagnosis: Problem not documented On: 04-May-2019 10:00 Appointment; JAQUELIN LOMBARDI M.D. Encounter Diagnosis: Problem not documented On: 01-Jun-2019 11:30
--- OUTSIDE RECORDS SUMMARY | 2019-06-18 10:22 | XMS REPORT | Summary of Care ---
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 Unavailable Unavailable MALISSA GUAMAN Unavailable Unavailable PRASANNA SAWYER MD Unavailable Unavailable JAQUELIN LOMBARDI MD Unavailable Unavailable Functional Status Name Dates Details Functional status health issues are not documented Status: Name Dates Details Cognitive status health issues are not documented Status: Problems Name Dates Details Closed displaced intra-articular fracture of left calcaneus, initial encounter (825.0, P65.194D) Status: Active Medications Name Dates Details Acetaminophen-Codeine [...] XR CALCANEUS (HEEL) 2 VWS, MIN. LEFT 59818 Date: 01-Jun-2019 [U] XRAY ANKLE MIN 3 VWS LEFT 50637 Date: 01-Jun-2019 Immunization Name Dates Details Immunizations not documented Social History Name Dates Details Tobacco smoking consumption unknown (finding) Vital Signs Date Test Result Details No Known Vitals to report Results Date Description Value Details Results not documented Plan of Care Name Dates Details Planned Observations Planned Goals not documented Planned Encounters Appointment; JAQUELIN LOMBARDI M.D. On: 01-Jun-2019 11:30 Appointment; JAQUELIN LOMBARDI M.D. On: 13-Jul-2019 10:00 Interventions Provided Labs/Procedures/Imaging* [U] XR CALCANEUS (HEEL) 2 VWS, MIN. LEFT 50761; To Be Done: 01 Jun 2019 * [U] XRAY ANKLE MIN 3 VWS LEFT 79758; To Be Done: 01 Jun 2019 Instructions Name Dates [...]
[2019-06-18 11:27] LABS: BASOPHILS % 0.5 % (0.0-1.0); HEMATOCRIT 39.7 % (34.2-44.1); HEMOGLOBIN 12.8 g/dL (12.0-16.0); LYMPHOCYTES # (AUTO) 0.9 (1.0-3.2); LYMPHOCYTES % 24.5 % (18.0-39.1); MEAN CORPUSCULAR HEMOGLOBIN 31.7 pg (28-32); MEAN CORPUSCULAR HGB CONC 32.2 g/dL (31-35); MEAN CORPUSCULAR VOLUME 98.3 fL (81-99); MONOCYTES # (AUTO) 0.6 (0.2-0.8); MONOCYTES % 14.3 % (4.4-11.3); NEUTROPHILS # (AUTO) 2.3 (2.1-6.9); NEUTROPHILS % 59.4 % (38.7-80.0); PLATELET COUNT 136 x10e3/uL (140-360); RED BLOOD COUNT 4.04 x10e6/uL (3.6-5.1)
[2019-06-18 11:40] LABS: ANION GAP 9.7 mmol/L (8-16); BLOOD UREA NITROGEN 9 mg/dL (7-26); BUN/CREATININE RATIO 12 (6-25); CARBON DIOXIDE 28 mmol/L (22-29); CHLORIDE 106 mmol/L (98-107); CREATININE, SERUM 0.78 mg/dL (0.57-1.11); EST GLOMERULAR FILTRATION RATE > 60 ML/MIN (60-); GLUCOSE 92 mg/dL (74-118); POTASSIUM 4.7 mmol/L (3.5-5.1); SODIUM 139 mmol/L (136-145)
--- NOTE | 2019-06-18 13:49 | Operative Report ---
DATE OF PROCEDURE: 06/18/2019 SURGEON: Rob Miller MD PREOPERATIVE DIAGNOSIS: Abscess, right axilla. POSTOPERATIVE DIAGNOSIS: Abscess, right axilla. PROCEDURE PERFOMED: Incision and drainage of abscess, right axilla with incisional biopsy from abscess right axilla. INTERNATIONAL COORDINATOR: None. ANESTHESIA: General. INDICATIONS AND FINDINGS: The patient is a 48-year-old female presented with complaints of pain and swelling in the right axilla several days ago and getting worse. At surgery there was found to be an abscess in her axilla, which involved the skin and subcutaneous tissue with some irregular tissue beneath the skin, which was biopsied. Abscess contained approximately 5 mL of purulent fluid. TECHNIQUE: After adequate general anesthesia, the patient in supine position, the right axilla was prepped and draped in sterile fashion with ChloraPrep solution. Incision was made over the area of swelling and through the skin and abscess cavity was entered. About 5 mL of purulent fluid was drained. Sample taken for culture and sensitivity. There was some irregular tissue beneath the skin and some of this tissue was excised as a biopsy. Hemostasis achieved with electrocautery. The wound was irrigated with saline inspected for hemostasis which was seen to be adequate. The wound was then packed open with half-inch iodoform gauze and sterile dressing applied. The patient tolerated the procedure well. Estimated blood loss was 5 mL. There were no complications. All counts were correct. The patient was taken to the recovery room in satisfactory condition. Rob Miller MD DWG/MODL /[id number] cc: Faith Marin MD
[2019-06-18 14:35] VITALS: BP 104/71
== END | disposition home or self-care (01) ==
LOC: OR 10:18
PROVIDERS: ATTEND Surgery
DX: L02.411 Cutaneous abscess of right axilla (principal)
CPT/HCPCS: 10060; 36415; 80048; 81025; 85025; 87071; 87075; 87186; 87205; 88304; 93005; J1100; J2001; J2405; J2704; J3010

== ENCOUNTER → 2019-07-23 | Outpatient (CLI) | payer BC, OTHER ==
[~2019-07-23] MED LIST changes: -ACETAMINOPHEN/CODEINE 300MG - 30MG TAB ONE; -BUPIVACAINE HCL 0.5% INJ 30 ML VIAL INJ ONE; -CLINDAMYCIN PHOS 900MG/ 50ML 50 ML IV ONE; -DEXAMETHASONE SOD PHOS INJ 4 MG/ML VIAL ONE; -FENTANYL CITRATE/PF 100MCG/2 ML INJ ONE; -LIDOCAINE HCL 2% LOCAL INJ 5 ML SDV VIAL INJ ONE; -ONDANSETRON HCL INJ 2MG/ML 2ML 2 MG/ML VIAL ONE; -PROPOFOL IV EMULSION 10 MG/ML 20 ML VIAL ONE; -SEVOFLURANE INHAL SOLN 250 ML PEN BTL ONE
== END ==
LOC: DX 13:55 → EDSTATUS 07-28 08:00
PROVIDERS: ATTEND Surgery
DX: L02.411 Cutaneous abscess of right axilla (principal); Z11.59 Encounter for screening for other viral diseases
CPT/HCPCS: 87635

== ENCOUNTER 2019-09-20 09:44 | Emergency (ER) | payer BC ==
[~2019-09-20] VITALS: Ht 160 cm; Wt 72.6 kg
[2019-09-20] MEDS ORDERED: SODIUM CHLORIDE 0.9% 1000ML 1,000 ML IV STA (10:01)
[2019-09-20] MEDS ORDERED: LORAZEPAM INJ 2 MG/ML VIAL IV ONE (10:15)
[2019-09-20] MEDS ORDERED: DIPHENHYDRAMINE HCL INJ 50 MG/ML VIAL IV ONE (10:15)
[2019-09-20 10:38] LABS: BASOPHILS % 0.4 % (0.0-1.0); EOSINOPHILS % 0.6 % (0.0-6.0); HEMATOCRIT 41.4 % (34.2-44.1); HEMOGLOBIN 13.6 g/dL (12.0-16.0); LYMPHOCYTES # (AUTO) 1.4 (1.0-3.2); LYMPHOCYTES % 30.2 % (18.0-39.1); MEAN CORPUSCULAR HGB CONC 32.9 g/dL (31-35); MEAN CORPUSCULAR VOLUME 94.3 fL (81-99); MONOCYTES # (AUTO) 0.5 (0.2-0.8); MONOCYTES % 9.8 % (4.4-11.3); NEUTROPHILS # (AUTO) 2.8 (2.1-6.9); NEUTROPHILS % 58.8 % (38.7-80.0); PLATELET COUNT 186 x10e3/uL (140-360); RED BLOOD COUNT 4.39 x10e6/uL (3.6-5.1); RED CELL DISTRIBUTION WIDTH 12.7 % (11.7-14.4)
[2019-09-20 10:51] LABS: INR 0.95; PROTHROMBIN TIME 13.2 seconds (11.9-14.5)
[2019-09-20 10:52] LABS: PARTIAL THROMBOPLASTIN TIME 25.7 seconds (23.8-35.5)
--- NOTE | 2019-09-20 10:57 | Diagnostic Imaging Report ---
CT BRAIN WO HISTORY: Altered mental status COMPARISON: Report from MRI of the brain dated 05/26/2007 TECHNIQUE: Noncontrast axial scans were obtained from skull base to the vertex. Coronal and sagittal reconstructions obtained from the axial data. One or more of the following dose reduction techniques were used: Automated exposure control, adjustment of the mA and/or kV according to patient size, and/or utilization of iterative reconstruction technique. DISCUSSION: Scalp/Skull: Unremarkable. Brain sulci: Mildly prominent, especially along the frontal lobes. Ventricles: Mild compensatory dilatation. Extra-axial spaces: No masses or fluid collections. Parenchyma: Small hypodensities in the bilateral putamen, left greater than right, may be old lacunar infarcts or prominent perivascular spaces. Otherwise, no mass, hemorrhage, or large vascular territory acute infarct. Dural sinuses: No abnormal densities. Sellar/Suprasellar region: Intact. Skull base: Intact. Incidental findings: None. IMPRESSION: 1. No acute intracranial abnormalities. 2. Mild generalized cerebral volume loss, slightly accentuated in the frontal lobes. 3. Small hypodensities in the bilateral putamen, left greater than right, may be old lacunar infarcts or prominent perivascular spaces. Signed by: Dr. Ger Jarrell M.D. on 09/20/2019 10:54 AM
[2019-09-20 11:00] LABS: ALANINE AMINOTRANSFERASE 35 IU/L (0-55); ALBUMIN/GLOBULIN RATIO 1.5 (0.8-2.0); ALKALINE PHOSPHATASE 57 IU/L (40-150); ANION GAP 15.5 mmol/L (8-16); BLOOD UREA NITROGEN 13 mg/dL (7-26); BUN/CREATININE RATIO 14 (6-25); CALCIUM 8.8 mg/dL (8.4-10.2); CARBON DIOXIDE 19 mmol/L (22-29); CHLORIDE 106 mmol/L (98-107); CREATINE KINASE 88 IU/L (29-168); CREATININE, SERUM 0.95 mg/dL (0.57-1.11); EST GLOMERULAR FILTRATION RATE > 60 ML/MIN (60-); GLUCOSE 109 mg/dL (74-118); POTASSIUM 3.5 mmol/L (3.5-5.1); SODIUM 137 mmol/L (136-145)
[2019-09-20 11:08] LABS: AMPHETAMINES SCREEN,URINE POSITIVE (NEGATIVE); BENZODIAZEPINES SCREEN,URINE NEGATIVE (NEGATIVE); PHENCYCLIDINE SCREEN,URINE NEGATIVE (NEGATIVE)
[2019-09-20 11:09] LABS: CLARITY,URINE SL CLOUDY (CLEAR); COLOR,URINE YELLOW (YELLOW); KETONES,URINE NEGATIVE (NEGATIVE); LEUKOCYTE ESTERASE ,URINE NEGATIVE (NEGATIVE); NITRITE,URINE NEGATIVE (NEGATIVE); PROTEIN,URINE DIPSTICK NEGATIVE (NEGATIVE)
[2019-09-20 11:10] LABS: BILIRUBIN,URINE NEGATIVE (NEGATIVE); URINE UROBILINOGEN 0.2 mg/dL (0.2 - 1)
[2019-09-20 11:27] LABS: BACTERIA,URINE MODERATE /HPF; EPITHELIAL CELLS,URINE MANY /LPF; RBC,URINE 0-5 /HPF (0-5)
--- NOTE | 2019-09-20 11:32 | Emergency Department Note ---
History of Present Illnes History of Present Illness Chief Complaint: Psychiatric History of Present Illness This is a 49 year old female PER SPOUSE, PATIENT IN FROM HOME WITH COMPLAINTS OF SHAKING ALL OVER. PATIENT SCREAMING IN TRIAGE, PATIENT HOSTILE AND ARGUMENTATIVE. PATIENTS SPOUSE STATES THAT SHE HAD SLURRED SPEECH, WEAKNESS, AND MEMORY ISSUES THIS MORNING. PATIENT AT TIMES ANSWERS NORMALLY, AND THEN STARTS SCREAMING. PATIENT ROCKING BACK AND FORTH IN THE WHEELCHAIR AND SCREAMING "I'M HAVING A SEIZURE, IT IS SEIZURES!!!" PATIENT ON MULTIPLE PSYCHIATRIC MEDICATIONS - REPORTEDLY TOOK AN EXTRA DOSE OF SEVERAL OF HER MEDS LAST NIGHT Historian: Patient, Family Member Arrival Mode: Car Clinical Studies Specialist Required: No Radiation: Reports non-radiation Severity: moderate Timing of current episode: intermittent Progression: waxing and waning Chronicity: new Context: Denies recent illness Relieving factors: none Exacerbating factors: none Associated symptoms: Reports denies other symptoms Treatments prior to arrival: none Past Medical/Family History Physician Review I have reviewed the patient's past medical and family history. Any updates have been documented here. Past Medical History Recent Fever: No Clinical Suspicion of Infectio: No New/Unexplained Change in Ment: No Past Medical History: Anxiety, Depression, Other Mental Illness Other Medical History: DEPRESSION Past Surgical History: Bariatric Surgery Other Surgery: GASTRIC BYPASS Family History Family history of heart diseas: No Other Last Tetanus: UNK Review of Systems Review of Systems Constitutional: Reports as per HPI EENTM: Reports no symptoms Cardiovascular: Reports no symptoms Respiratory: Reports no symptoms Gastrointestinal: Reports no symptoms Genitourinary: Reports no symptoms Musculoskeletal: Reports no symptoms Integumentary: Reports no symptoms Neurological: Reports as per HPI Psychological: Reports no symptoms Endocrine: Reports no symptoms Hematological/Lymphatic: Reports no symptoms Physical Exam Related Data Allergies: Coded Allergies: No Known Allergies (Unverified , 09/21/11) Triage Vital Signs Vital Signs Date Time Temp Pulse Resp B/P (MAP) Pulse Ox O2 Delivery O2 Flow Rate FiO2 09/20/19 09:51 98.6 89 20 111/75 100 Vital signs reviewed: Yes Physical Exam CONSTITUTIONAL Constitutional: Present well-developed, Present well-nourished HENT HENT: Present normocephalic, Present atraumatic, Present oropharynx clear/moist, Present nose normal HENT L/R: Present left ext ear normal, Present right ext ear normal EYES Eyes: Reports PERRL, Reports conjunctivae normal NECK Neck: Present ROM normal PULMONARY Pulmonary: Present effort normal, Present breath sounds normal CARDIOVASCULAR Cardiovascular: Present regular rhythm, Present heart sounds normal, Present capillary refill normal, Present normal rate GASTROINTESTINAL Abdominal: Present soft, Present nontender, Present bowel sounds normal GENITOURINARY Genitourinary: Present exam deferred SKIN Skin: Present warm, Present dry MUSCULOSKELETAL Musculoskeletal: Present ROM normal NEUROLOGICAL Neurological: Present alert, Present oriented x 3, Present DTRs normal, Present no gross motor or sensory deficits, Present other (STRANGE AFFECT, TALKS NORMALLY THEN SUDDENLY WILL YELL "HERE COMES ONE" AND STARTS SCREAMING AND SHAKING ALL OVER); Absent abnormal DTRs PSYCHOLOGICAL Psychological: Present mood/affect normal, Present judgement normal Results Laboratory Result Diagram: 09/20/19 1003 09/20/19 1003 Laboratory Laboratory Tests Test 09/20/19 10:03 09/20/19 10:00 White Blood Count 4.70 x10e3/uL (4.8-10.8) Red Blood Count 4.39 x10e6/uL (3.6-5.1) Hemoglobin 13.6 g/dL (12.0-16.0) Hematocrit 41.4 % (34.2-44.1) Mean Corpuscular Volume 94.3 fL (81-99) Mean Corpuscular Hemoglobin 31.0 pg (28-32) Mean Corpuscular Hemoglobin Concent 32.9 g/dL (31-35) Red Cell Distribution Width 12.7 % (11.7-14.4) Platelet Count 186 x10e3/uL (140-360) Neutrophils (%) (Auto) 58.8 % (38.7-80.0) Lymphocytes (%) (Auto) 30.2 % (18.0-39.1) Monocytes (%) (Auto) 9.8 % (4.4-11.3) Eosinophils (%) (Auto) 0.6 % (0.0-6.0) Basophils (%) (Auto) 0.4 % (0.0-1.0) Neutrophils # (Auto) 2.8 (2.1-6.9) Lymphocytes # (Auto) 1.4 (1.0-3.2) Monocytes # (Auto) 0.5 (0.2-0.8) Eosinophils # (Auto) 0.0 (0.0-0.4) Basophils # (Auto) 0.0 (0.0-0.1) Absolute Immature Granulocyte (auto 0.01 x10e3/uL (0-0.1) Prothrombin Time 13.2 seconds (11.9-14.5) Prothromb Time International Ratio 0.95 Activated Partial Thromboplast Time 25.7 seconds (23.8-35.5) Sodium Level 137 mmol/L (136-145) Potassium Level 3.5 mmol/L (3.5-5.1) Chloride Level 106 mmol/L (98-107) Carbon Dioxide Level 19 mmol/L (22-29) Anion Gap 15.5 mmol/L (8-16) Blood Urea Nitrogen 13 mg/dL (7-26) Creatinine 0.95 mg/dL (0.57-1.11) Estimat Glomerular Filtration Rate > 60 ML/MIN (60-) BUN/Creatinine Ratio 14 (6-25) Glucose Level 109 mg/dL (74-118) Calcium Level 8.8 mg/dL (8.4-10.2) Total Bilirubin 0.4 mg/dL (0.2-1.2) Aspartate Amino Transf (AST/SGOT) 21 IU/L (5-34) Alanine Aminotransferase (ALT/SGPT) 35 IU/L (0-55) Alkaline Phosphatase 57 IU/L (40-150) Creatine Kinase 88 IU/L (29-168) Creatine Kinase MB 2.10 ng/mL (0-5.0) Troponin I < 0.001 ng/mL (0-0.300) Total Protein 6.7 g/dL (6.5-8.1) Albumin 4.0 g/dL (3.5-5.0) Globulin 2.7 g/dL (2.3-3.5) Albumin/Globulin Ratio 1.5 (0.8-2.0) Acetaminophen Level < 3.0 ug/mL (10-30) Ethyl Alcohol Level < 10.0 mg/dL (0.0-10.0) Urine Color Yellow (YELLOW) Urine Clarity Sl cloudy (CLEAR) Urine pH 5.5 (5 - 7) Urine Specific Range >=1.030 (1.010-1.025) Urine Protein Negative (NEGATIVE) Urine Glucose (UA) Negative (NEGATIVE) Urine Ketones Negative (NEGATIVE) Urine Blood Trace (NEGATIVE) Urine Nitrite Negative (NEGATIVE) Urine Bilirubin Negative (NEGATIVE) Urine Urobilinogen 0.2 mg/dL (0.2 - 1) Urine Leukocyte Esterase Negative (NEGATIVE) Urine Opiates Screen Negative (NEGATIVE) Urine Methadone Screen Negative (NEGATIVE) Urine Barbiturates Screen Negative (NEGATIVE) Urine Phencyclidine Screen Negative (NEGATIVE) Urine Amphetamines Screen Positive (NEGATIVE) Urine Methamphetamines Screen Negative (NEGATIVE) Urine Benzodiazepines Screen Negative (NEGATIVE) Urine Cocaine Screen Negative (NEGATIVE) Urine Cannabinoids Screen Negative (NEGATIVE) Lab results reviewed: Yes Imaging Imaging results reviewed: Yes Impressions Procedure: [id number] CT/CT BRAIN WO Exam Date: 09/20/19 Exam Time: 1015 REPORT STATUS: Signed CT BRAIN WO HISTORY: Altered mental status COMPARISON: Report from MRI of the brain dated 05/26/2007 TECHNIQUE: Noncontrast axial scans were obtained from skull base to the vertex. Coronal and sagittal reconstructions obtained from the axial data. One or more of the following dose reduction techniques were used: Automated exposure control, adjustment of the mA and/or kV according to patient size, and/or utilization of iterative reconstruction technique. DISCUSSION: Scalp/Skull: Unremarkable. Brain sulci: Mildly prominent, especially along the frontal lobes. Ventricles: Mild compensatory dilatation. Extra-axial spaces: No masses or fluid collections. Parenchyma: Small hypodensities in the bilateral putamen, left greater than right, may be old lacunar infarcts or prominent perivascular spaces. Otherwise, no mass, hemorrhage, or large vascular territory acute infarct. Dural sinuses: No abnormal densities. Sellar/Suprasellar region: Intact. Skull base: Intact. Incidental findings: None. IMPRESSION: 1. No acute intracranial abnormalities. 2. Mild generalized cerebral volume loss, slightly accentuated in the frontal lobes. 3. Small hypodensities in the bilateral putamen, left greater than right, may be old lacunar infarcts or prominent perivascular spaces. Signed by: Dr. Ger Jarrell M.D. on 09/20/2019 10:54 AM Procedures 12 Lead ECG Interpretation ECG Interpretation : ECG: ECG 1 Clinical Studies Specialist: Interpreted by ED physician Date: Sep 20, 2019 Time: 10:11 Rhythm: sinus rhythm Rate: normal QRS axis: normal ST segments normal: Yes T waves normal: Yes Clinical Impression: normal ECG Assessment & Plan Medical Decision Making MDM CBC, CHEMS, CARDIACS, ECG, CT BRAIN, UA, UDS - R/O ELECTROLYTE ABNL, RHABDOMYOLYSIS, CVA/HEMORRHAGE, DRUG INGESTION, UTI Reassessment Reassessment LABS GOOD, IMPROVED WITH ATIVAN/BENADRYL, F/U PSYCHIATRIST Assessment & Plan Final Impression: (1) Depression with anxiety Depart Disposition: HOME, SELF-CARE Last Vital Signs Date Time Temp Pulse Resp B/P (MAP) Pulse Ox O2 Delivery O2 Flow Rate FiO2 09/20/19 09:51 98.6 89 20 111/75 100 Home Meds Reported Medications Clindamycin Hcl (CLINDAMYCIN HCL) 150 Mg Capsule, PO DAILY 07/23/19 Sulfamethoxazole/Trimethoprim (BACTRIM DS TABLET) 1 Each Tablet, 1 TAB PO BID, #60 TAB 07/23/19 [Tenex] No Conflict Check, 1 MG PO BID 06/17/19 Quetiapine Fumarate (SEROQUEL) 100 Mg Tablet, 100 MG PO DAILY 06/17/19 Zolpidem Tartrate (AMBIEN) 10 Mg Tablet, 10 MG PO HS, #30 TAB 02/19/17 Amphet Asp/Amphet/D-Amphet (ADDERALL 20 MG TABLET) 20 Mg Tablet, 20 MG PO BID 02/19/17 Bupropion Hcl (WELLBUTRIN SR) 150 Mg Tablet.er, 300 MG PO DAILY 02/19/17 Topiramate (TOPAMAX) 25 Mg Tablet, 100 MG PO BID 02/19/17 Escitalopram Oxalate (LEXAPRO) 10 Mg Tablet, 40 MG PO DAILY, #30 TAB 02/19/17 Medications in the ED Sodium Chloride 1,000 ml @ 0 mls/hr Q0M STAT IV ; Start 09/20/19 at 10:01; Stop 09/20/19 at 10:07; Status DC Lorazepam 1 mg ONCE ONCE IV ; Start 09/20/19 at 10:15; Stop 09/20/19 at 10:16; Status DC Diphenhydramine HCl 25 mg NOW ONCE IV ; Start 09/20/19 at 10:15; Stop 09/20/19 at 10:16; Status DC TRAY DIANE MD Sep 20, 2019 11:32
[2019-09-20 12:49] VITALS: BP 107/61
== END 2019-09-20 13:39 | disposition home or self-care (01) ==
LOC: ER 11:35
DX: F32.9 Major depressive disorder, single episode, unspecified (principal); F41.9 Anxiety disorder, unspecified; Z98.84 Bariatric surgery status
CPT/HCPCS: 36415; 70450; 80053; 80307; 80320; 80329; 81001; 82550; 82553; 84484; 85025; 85610; 85730; 93005; 99284; J1200; J2060; J7030

== ENCOUNTER 2019-11-05 21:52 | Emergency (ER) | payer BC ==
[~2019-11-05] VITALS: Ht 157.5 cm; Wt 56.7 kg
--- NOTE | 2019-11-05 21:52 | NUR ---
Poison control called ahead of time and notified patient was coming to ER. Recommendation of cbc, cmp, cardiac makers, ekg, uds, serum tylenol and salicylates level and continuos cardiac monitoring. 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 Also reccomended to administer activated charcoal at this time. Poison control recommends observation for 6-8 hours. IV fluids for hypotension initially and pressors as needed. ER MD notified of recommendations.
[2019-11-05] MEDS ORDERED: ACTIVATED CHARCOAL 25 GM/120 ML PO STA (22:06)
[2019-11-05 22:18] LABS: BASOPHILS % 0.3 % (0.0-1.0); EOSINOPHILS # (AUTO) 0.1 (0.0-0.4); EOSINOPHILS % 1.2 % (0.0-6.0); HEMATOCRIT 38.9 % (34.2-44.1); HEMOGLOBIN 12.6 g/dL (12.0-16.0); LYMPHOCYTES # (AUTO) 1.7 (1.0-3.2); LYMPHOCYTES % 25.1 % (18.0-39.1); MEAN CORPUSCULAR HGB CONC 32.4 g/dL (31-35); MEAN CORPUSCULAR VOLUME 98.7 fL (81-99); MONOCYTES # (AUTO) 0.8 (0.2-0.8); MONOCYTES % 11.4 % (4.4-11.3); NEUTROPHILS # (AUTO) 4.2 (2.1-6.9); NEUTROPHILS % 61.9 % (38.7-80.0); PLATELET COUNT 168 x10e3/uL (140-360); RED BLOOD COUNT 3.94 x10e6/uL (3.6-5.1); RED CELL DISTRIBUTION WIDTH 12.8 % (11.7-14.4)
[2019-11-05 22:20] LABS: AMPHETAMINES SCREEN,URINE NEGATIVE (NEGATIVE); BENZODIAZEPINES SCREEN,URINE NEGATIVE (NEGATIVE); PHENCYCLIDINE SCREEN,URINE NEGATIVE (NEGATIVE)
[2019-11-05 22:32] LABS: ALANINE AMINOTRANSFERASE 23 IU/L (0-55); ALBUMIN 3.4 g/dL (3.5-5.0); ALBUMIN/GLOBULIN RATIO 1.3 (0.8-2.0); ALKALINE PHOSPHATASE 79 IU/L (40-150); ANION GAP 11.9 mmol/L (8-16); BLOOD UREA NITROGEN 13 mg/dL (7-26); BUN/CREATININE RATIO 15 (6-25); CALCIUM 8.7 mg/dL (8.4-10.2); CARBON DIOXIDE 22 mmol/L (22-29); CHLORIDE 112 mmol/L (98-107); CREATINE KINASE 64 IU/L (29-168); CREATININE, SERUM 0.87 mg/dL (0.57-1.11); EST GLOMERULAR FILTRATION RATE > 60 ML/MIN (60-); GLUCOSE 79 mg/dL (74-118); POTASSIUM 3.9 mmol/L (3.5-5.1); SALICYLATE < 5.0 mg/dL (0-30); SODIUM 142 mmol/L (136-145)
--- NOTE | 2019-11-05 22:44 | Emergency Department Note ---
History of Present Illnes History of Present Illness Chief Complaint: Drug Abuse/Intoxication History of Present Illness This is a 49 year old female Chief Complaint Comment pt "accidentally" took 40 capsules of 50 mg Lyrica, as per patient, she mistakenly took a bottle that was given to her by her thinking that it was her usual medications that she takes daily, denies self harm, [place] poison control called ahead to give recommendations for the patient. Historian: Patient Arrival Mode: Car Bargain Table Clerk Required: No Onset (how long ago): hour(s) (1) Location: GI Quality: None Radiation: Reports non-radiation Severity: mild Onset quality: sudden Duration (how long): hour(s) Timing of current episode: unable to specify Progression: unchanged Chronicity: new Context: Denies recent illness Relieving factors: none Exacerbating factors: none Associated symptoms: Reports denies other symptoms Treatments prior to arrival: none Past Medical/Family History Physician Review I have reviewed the patient's past medical and family history. Any updates have been documented here. Past Medical History Recent Fever: No Clinical Suspicion of Infectio: No New/Unexplained Change in Ment: No Past Medical History: Anxiety, Depression Other Medical History: DEPRESSION Past Surgical History: Appendectomy, Tubal Ligation Other Surgery: gastric bypass 2003, cholecystectomy 2017, calcaneal repair 2019 Social History Physically hurt or threatened: No Other Last Tetanus: UNK Any Pre-Existing Lines (PICC,: No Review of Systems Review of Systems Constitutional: Reports no symptoms EENTM: Reports no symptoms Cardiovascular: Reports no symptoms Respiratory: Reports no symptoms Gastrointestinal: Reports no symptoms Genitourinary: Reports no symptoms Musculoskeletal: Reports no symptoms Integumentary: Reports no symptoms Neurological: Reports no symptoms Psychological: Reports no symptoms Endocrine: Reports no symptoms Hematological/Lymphatic: Reports no symptoms Physical Exam Related Data Allergies: Coded Allergies: No Known Allergies (Unverified , 09/21/11) Triage Vital Signs Vital Signs Date Time Temp Pulse Resp B/P (MAP) Pulse Ox O2 Delivery O2 Flow Rate FiO2 11/05/19 21:57 97.9 63 18 117/65 100 Vital signs reviewed: Yes Physical Exam CONSTITUTIONAL Constitutional: Present well-developed, Present well-nourished HENT HENT: Present normocephalic, Present atraumatic, Present oropharynx clear/moist, Present nose normal HENT L/R: Present left ext ear normal, Present right ext ear normal EYES Eyes: Reports PERRL, Reports conjunctivae normal NECK Neck: Present ROM normal PULMONARY Pulmonary: Present effort normal, Present breath sounds normal CARDIOVASCULAR Cardiovascular: Present regular rhythm, Present heart sounds normal, Present capillary refill normal, Present normal rate GASTROINTESTINAL Abdominal: Present soft, Present nontender, Present bowel sounds normal GENITOURINARY Genitourinary: Present exam deferred SKIN Skin: Present warm, Present dry MUSCULOSKELETAL Musculoskeletal: Present ROM normal NEUROLOGICAL Neurological: Present alert, Present oriented x 3, Present no gross motor or sensory deficits PSYCHOLOGICAL Psychological: Present mood/affect normal, Present judgement normal Results Laboratory Result Diagram: 11/05/19220611/05/192206 Laboratory Laboratory Tests Test 11/05/19 22:07 White Blood Count 6.77 x10e3/uL (4.8-10.8) Red Blood Count 3.94 x10e6/uL (3.6-5.1) Hemoglobin 12.6 g/dL (12.0-16.0) Hematocrit 38.9 % (34.2-44.1) Mean Corpuscular Volume 98.7 fL (81-99) Mean Corpuscular Hemoglobin 32.0 pg (28-32) Mean Corpuscular Hemoglobin Concent 32.4 g/dL (31-35) Red Cell Distribution Width 12.8 % (11.7-14.4) Platelet Count 168 x10e3/uL (140-360) Neutrophils (%) (Auto) 61.9 % (38.7-80.0) Lymphocytes (%) (Auto) 25.1 % (18.0-39.1) Monocytes (%) (Auto) 11.4 % (4.4-11.3) Eosinophils (%) (Auto) 1.2 % (0.0-6.0) Basophils (%) (Auto) 0.3 % (0.0-1.0) Neutrophils # (Auto) 4.2 (2.1-6.9) Lymphocytes # (Auto) 1.7 (1.0-3.2) Monocytes # (Auto) 0.8 (0.2-0.8) Eosinophils # (Auto) 0.1 (0.0-0.4) Basophils # (Auto) 0.0 (0.0-0.1) Absolute Immature Granulocyte (auto 0.01 x10e3/uL (0-0.1) Sodium Level 142 mmol/L (136-145) Potassium Level 3.9 mmol/L (3.5-5.1) Chloride Level 112 mmol/L (98-107) Carbon Dioxide Level 22 mmol/L (22-29) Anion Gap 11.9 mmol/L (8-16) Blood Urea Nitrogen 13 mg/dL (7-26) Creatinine 0.87 mg/dL (0.57-1.11) Estimat Glomerular Filtration Rate > 60 ML/MIN (60-) BUN/Creatinine Ratio 15 (6-25) Glucose Level 79 mg/dL (74-118) Calcium Level 8.7 mg/dL (8.4-10.2) Total Bilirubin 0.2 mg/dL (0.2-1.2) Aspartate Amino Transf (AST/SGOT) 19 IU/L (5-34) Alanine Aminotransferase (ALT/SGPT) 23 IU/L (0-55) Alkaline Phosphatase 79 IU/L (40-150) Creatine Kinase 64 IU/L (29-168) Total Protein 6.0 g/dL (6.5-8.1) Albumin 3.4 g/dL (3.5-5.0) Globulin 2.6 g/dL (2.3-3.5) Albumin/Globulin Ratio 1.3 (0.8-2.0) Salicylates Level < 5.0 mg/dL (0-30) Urine Opiates Screen Negative (NEGATIVE) Urine Methadone Screen Negative (NEGATIVE) Acetaminophen Level < 3.0 ug/mL (10-30) Urine Barbiturates Screen Negative (NEGATIVE) Urine Phencyclidine Screen Negative (NEGATIVE) Urine Amphetamines Screen Negative (NEGATIVE) Urine Methamphetamines Screen Negative (NEGATIVE) Urine Benzodiazepines Screen Negative (NEGATIVE) Urine Cocaine Screen Negative (NEGATIVE) Urine Cannabinoids Screen Negative (NEGATIVE) Lab results reviewed: Yes Imaging Imaging results reviewed: Yes Procedures 12 Lead ECG Interpretation ECG Interpretation : Bargain Table Clerk: Interpreted by ED physician Date: Nov 05, 2019 Rhythm: sinus rhythm Rate: normal QRS axis: normal ST segments normal: Yes T waves normal: Yes Clinical Impression: normal ECG Assessment & Plan Medical Decision Making MDM 49-year-old female presents for Lyrica overdose. Took approximately 40 tablets of 50 mg Lyrica. Poison control was contacted and recommended routine overdose workup to give fluids for hypotension. Poison control recommend 6-8 hour obs. Patient became more somnolent while in the emergency department. She was given charcoal at initial presentation. 2 L normal saline was administered for hypotension. Laboratory workup is largely unremarkable. EKG is unremarkable. Patient was given a total of 3L in all with improvement in BP. After 8 hours from ingestion her mental status is improved. She was road tested and is now safe for discharge. Do not suspect patient was attempting to hurt herself with her medication overdose and I believe this was in fact a medication error. Reassessment Reassessment time: 23:20 Reassessment Somnolent, BP decreased. Giving fluid bolus Assessment & Plan Final Impression: (1) Medication overdose Depart Disposition: HOME, SELF-CARE Last Vital Signs Date Time Temp Pulse Resp B/P (MAP) Pulse Ox O2 Delivery O2 Flow Rate FiO2 11/05/19 21:57 97.9 63 18 117/65 100 Home Meds Reported Medications Clindamycin Hcl (CLINDAMYCIN HCL) 150 Mg Capsule, PO DAILY 07/23/19 Sulfamethoxazole/Trimethoprim (BACTRIM DS TABLET) 1 Each Tablet, 1 TAB PO BID, #60 TAB 07/23/19 [Tenex] No Conflict Check, 1 MG PO BID 06/17/19 Quetiapine Fumarate (SEROQUEL) 100 Mg Tablet, 100 MG PO DAILY 06/17/19 Zolpidem Tartrate (AMBIEN) 10 Mg Tablet, 10 MG PO HS, #30 TAB 02/19/17 Amphet Asp/Amphet/D-Amphet (ADDERALL 20 MG TABLET) 20 Mg Tablet, 20 MG PO BID 02/19/17 Bupropion Hcl (WELLBUTRIN SR) 150 Mg Tablet.er, 300 MG PO DAILY 02/19/17 Topiramate (TOPAMAX) 25 Mg Tablet, 100 MG PO BID 02/19/17 Escitalopram Oxalate (LEXAPRO) 10 Mg Tablet, 40 MG PO DAILY, #30 TAB 02/19/17 Medications in the ED Charcoal 25 gm NOW STAT PO Last administered on 11/05/19at 22:15; Admin Dose 25 GM; Start 11/05/19 at 22:06; Stop 11/05/19 at 22:07; Status DC STACIE RAMOS MD Nov 05, 2019 22:44
--- OUTSIDE RECORDS SUMMARY | 2019-11-05 22:50 | XMS REPORT | Summary of Care ---
Author Author [facility] Organization [facility] Address Unknown Phone Unavailable Encounter [facility] [place](DANIEL) [id number] Date(s): 10/08/19 - 10/08/19 [facility] [address] [employer] provided by [employer] [facility] [employer] [place] [address]- Discharge Disposition: Home or Self Care Attending Physician: Lawrence Gallardo MD Referring Physician: Lawrence Gallardo MD Vital Signs 1 2 3 Most recent to oldest [Reference Range]: 157.48 cm (10/08/19 7:13 AM) 157.48 cm (10/04/19 3:10 PM) Height 100/56 mmHg (10/08/19 11:17 AM) 97/54 mmHg (10/08/19 10:19 AM) 100/57 mmHg (10/08/19 10:00 AM) Blood Pressure [90-140/60-90 mmHg] 16 BRMIN (10/08/19 10:19 AM) 17 BRMIN (10/08/19 10:00 AM) 17 BRMIN (10/08/19 9:53 AM) Respiratory Rate [14-20 BRMIN] 84 bpm (10/08/19 10:19 AM) 59 bpm *LOW* (10/08/19 7:13 AM) Peripheral Pulse Rate [60-100 bpm] 58.1 kg (10/08/19 7:13 AM) 56.818 kg (10/04/19 3:10 PM) Weight 23.43 m2 (10/08/19 7:13 AM) 22.91 m2 (10/04/19 3:10 PM) Body Mass Index Problem List Condition Effective Dates Status Health Status Informan t Fall from Resolved ladder(Confirmed)1 Anxiety and 1988 Active depression(Confirmed ) Scoliosis(Confirmed) Active 1L CALCANEUS FX Allergies, Adverse Reactions, Alerts No Known Medication Allergies Medications Abilify 10 mg oral tablet 10 mg = 1 tab, PO, Daily, # 30 tab, 0 Refill(s) Start Date: 10/04/19 Status: Ordered Ambien 10 mg oral tablet 10 mg = 1 tab, PO, Bedtime, # 14 tab, 0 Refill(s) Start Date: 10/04/19 Stop Date: 10/18/19 Status: Ordered ANES fentaNYL 25 microgram, Route: IVP, Q5Min, Dosing Weight 58.1, kg, PRN Pain Score 4-6, Maureen ority: Routine, Start date: 10/08/19 9:04:00 CDT, Duration: 4 doses or times, St op date: Limited # of times Start Date: 10/08/19 Stop Date: 10/09/19 Status: Discontinued ANES fentaNYL 50 microgram, Route: IVP, Q5Min, Dosing Weight 58.1, kg, PRN Pain Score 7-10, Pr iority: Routine, Start date: 10/08/19 9:04:00 CDT, Duration: 2 doses or times, S top date: Limited # of times Start Date: 10/08/19 Stop Date: 10/09/19 Status: Discontinued ANES flumazenil 0.2 mg, Route: IVP, PRN, Dosing Weight 58.1, kg, PRN Benzodiazepine Reversal, In itial dose, Start date: 10/08/19 9:04:00 CDT, Duration: 30 day, Stop date: 11/06 9:03:00 CDT Start Date: 10/08/19 Stop Date: 10/09/19 Status: Discontinued ANES ketOROLAC 30 mg, Route: IVP, ONCE, Dosing Weight 58.1, kg, Start date: 10/08/19 9:04:00 CD T, Stop date: 10/08/19 9:04:00 CDT Start Date: 10/08/19 Stop Date: 10/08/19 Status: Ordered ANES LORazepam 0.5 mg, Route: IVP, Q20Min, Dosing Weight 58.1, kg, PRN Anxiety, Start date: 9:04:00 CDT, Duration: 3 doses or times, Stop date: Limited # of times Start Date: 10/08/19 Stop Date: 10/09/19 Status: Discontinued ANES methocarbamol 1,000 mg, Route: IV, ONCE, Dosing Weight 58.1, kg, Start date: 10/08/19 9:04:00 CDT, Stop date: 10/08/19 9:04:00 CDT Start Date: 10/08/19 Stop Date: 10/08/19 Status: Ordered ANES naloxone 0.4 mg, Route: IVP, Q2MIN, Dosing Weight 58.1, kg, PRN Narcotic Reversal, Start date: 10/08/19 9:04:00 CDT, Duration: 8 doses or times, Stop date: Limited # of times Start Date: 10/08/19 Stop Date: 10/09/19 Status: Discontinued ANES ondansetron 4 mg, Route: IVP, ONCE, Dosing Weight 58.1, kg, PRN Nausea & Vomiting, Start date: 10/08/19 9:04:00 CDT Start Date: 10/08/19 Stop Date: 10/08/19 Status: Completed ceFAZolin 2 gm, 20 mL, Route: IVP, Drug form: SOLN, PRE OP, Start date: 10/07/19 22:00:00 CDT, Duration: 1 day, Stop date: 10/08/19 21:59:00 CDT, ABX Indication: Surgical Prophylaxis, 0 Notes: (Same as Ancef) Start Date: 10/07/19 Stop Date: 10/09/19 Status: Discontinued ceFAZolin (ANES) Route: IV, Drug form: INJ, ONCE, Stop date: 10/08/19 8:27:00 CDT Start Date: 10/08/19 Stop Date: 10/08/19 Status: Completed dexamethasone (ANES) Route: IV, Drug form: INJ, ONCE, Stop date: 10/08/19 8:27:00 CDT Start Date: 10/08/19 Stop Date: 10/08/19 Status: Completed doxycycline PO, Q12H, 0 Refill(s) Start Date: 10/04/19 Status: Ordered ePHEDrine (ANES) Route: IV, Drug form: INJ, ONCE, Stop date: 10/08/19 8:27:00 CDT Start Date: 10/08/19 Stop Date: 10/08/19 Status: Completed fentaNYL (ANES) Route: IV, Drug form: INJ, ONCE, Stop date: 10/08/19 8:22:00 CDT Start Date: 10/08/19 Stop Date: 10/08/19 Status: Completed hydromorphone (ANES) Route: IV, Drug form: INJ, ONCE, Stop date: 10/08/19 8:47:00 CDT Start Date: 10/08/19 Stop Date: 10/08/19 Status: Completed lidocaine (ANES) Route: IV, Drug form: INJ, ONCE, Stop date: 10/08/19 8:22:00 CDT Start Date: 10/08/19 Stop Date: 10/08/19 Status: Completed midazolam (ANES) Route: IV, Drug form: SOLN, ONCE, Stop date: 10/08/19 8:27:00 CDT Start Date: 10/08/19 Stop Date: 10/08/19 Status: Completed ondansetron (ANES) Route: IV, Drug form: INJ, ONCE, Stop date: 10/08/19 8:27:00 CDT Start Date: 10/08/19 Stop Date: 10/08/19 Status: Completed propofol (ANES) Route: IV, Drug form: INJ, ONCE, Stop date: 10/08/19 8:22:00 CDT Start Date: 10/08/19 Stop Date: 10/08/19 Status: Completed succinylcholine (ANES) Route: IV, Drug form: INJ, ONCE, Stop date: 10/08/19 8:22:00 CDT Start Date: 10/08/19 Stop Date: 10/08/19 Status: Completed traMADol 100 mg oral tablet 100 mg = 1 tab, PO, Q6H, # 60 tab, 0 Refill(s) Start Date: 10/08/19 Stop Date: 11/09/19 Status: Ordered Tylenol 1,000 mg, Route: IV, ONCE, Dosing Weight 58.1, kg, Start date: 10/08/19 9:04:00 CDT, Stop date: 10/08/19 9:04:00 CDT Start Date: 10/08/19 Stop Date: 10/08/19 Status: Ordered Results Most recent to 1 oldest [Reference Range]: Coronavirus Not Detected (COVID-19) APURVA [Not (10/05/19 10:08 AM) Detected] Immunizations Given and Recorded Vaccine Date Status Refusal Reason influenza virus vaccine, inactivated 01/15/19 G iven Procedures Procedure Date Related Diagnosis Body Site Status Cholecystectomy 2016 Completed Operation1 2016 Completed Gastric bypass 2002 Completed Tubal ligation 2001 Completed Discectomy 1987 Completed Appendectomy 1979 Completed 1TEETH REMOVAL IN PREPERATION FOR DENTURES Social History Social History Type Response Alcohol Past, Last use: 10/2018. Substance Abuse Use: None. Smoking Status Never smoker; Type: Cigaret bobby; Previous treatment: None; Ready to change: No; Concerns about tobacco use in house hold: No; Lives with someone who smokes; Cigarette Smoking Last 365 Days No; Reg Smoking Cessation Counseling No entered on: 10/08/19 Assessment and Plan Extracted from: Title: [facility] F/U Phone Call Author: Pepper Mcfadden DO Date: 10/09/19 Attempted to contact patient to follow-u p on block. Left voicemail at 0932 am.
--- OUTSIDE RECORDS SUMMARY | 2019-11-05 22:50 | XMS REPORT | Continuity of Care Document ---
Author Author [employer], TOM FLORES Organization [employer] Address Unknown Phone Unavailable Care Team Providers Care Icing Mixer Name Role Phone [employer] Unavailable Un available Problems Problem Status Onset Date Classification Date Reported Comments Source PAIN DUE TO INTERNAL ORTHOPEDIC PROSTHET Active 09/29/2019 [facility] LT FOOT Active 01/11/2019 [facility] [place] DISPLACED INTRAARTICULAR FRACTURE OF LEF Active 01/06/2019 [facility] Mixed anxiety and depressive disorder (disorder) Active 03/24/1987 Problem 10/11/2019 [facility] [place] Fall from ladder (finding) Res olved Problem L CALCANEUS FX [facility] [place] Scoliosis deformity of spine (disorder) Active Problem 10/11/2019 [facility] [place] DISPLACED INTRAARTICULAR FRACTURE OF LEF Active [facility] Medications Medication Details Route Status Patient Instructions Ordering Provider Order Date Source Ketorolac 30 mg, Route: IVP, O NCE, Dosing Weight 58.1, kg, Start date: 10/08/19 9:04:00 CDT, Stop date: 10/08/19 9:04:00 CDT Inactive 10/08/2019 [facility] Fentanyl 25 microgram, Route: IVP, Q5Min, Dosing Weight 58.1, kg, PRN Pain Score 4-6, Priority: Routine, Start date: 10/08/19 9:04:00 CDT, Duration: 4 doses or times, Stop date: Limited # of times No Longer Active 10/08/2019 [facility] Flumazenil 0.2 mg, Route: IVP, PRN, Dosing Weight 58.1, kg, PRN Benzodiazepine Reversal, Initial dose, Start date: 10/08/19 9:04:00 CDT, Duration: 30 day, Stop date: 11/07/19 9:03:00 CDT No Longer Active 10/08/2019 [facility] Naloxone 0.4 mg, Route: IVP, Q 2MIN, Dosing Weight 58.1, kg, PRN Narcotic Reversal, Start date: 10/08/19 9:04:00 CDT, Duration: 8 doses or times, Stop date: Limited # of times No Longer Active 10/08/2019 [facility] Ondansetron 4 mg, Route: IVP, ONCE, Dosing Weight 58.1, kg, PRN Nausea & Vomiting, Start date: 10/08/19 9:04:00 CDT Inactive 10/08/2019 [facility] Lorazepam 0.5 mg, Route: IVP, Q20Min, Dosing Weight 58.1, kg, PRN Anxiety, Start date: 10/08/19 9:04:00 CDT, Duration: 3 doses or times, Stop date: Limited # of times No Longer Active 10/08/2019 [facility] Methocarbamol 1,000 mg, Route: IV, ONCE, Dosing Weight 58.1, kg, Start date: 10/08/19 9:04:00 CDT, Stop date: 10/08/19 9:04:00 CDT Inactive 10/08/2019 [facility] Tylenol 1,000 mg, Route: IV, O NCE, Dosing Weight 58.1, kg, Start date: 10/08/19 9:04:00 CDT, Stop date: 10/08/19 9:04:00 CDT Inactive 10/08/2019 [facility] traMADol 100 mg oral tablet 10 0 mg = 1 tab, PO, Q6H, # 60 tab, 0 Refill(s) Active 10/08/2019 [facility] hydromorphone (ANES) Route: IV , Drug form: INJ, ONCE, Stop date: 10/08/19 8:47:00 CDT Inactive 10/08/2019 [facility] nter ondansetron (ANES) Route: IV, Drug form: INJ, ONCE, Stop date: 10/08/19 8:27:00 CDT Inactive 10/08/2019 [facility] nter dexamethasone (ANES) Route: IV , Drug form: INJ, ONCE, Stop date: 10/08/19 8:27:00 CDT Inactive 10/08/2019 [facility] nter ceFAZolin (ANES) Route: IV, Dr ug form: INJ, ONCE, Stop date: 10/08/19 8:27:00 CDT Inactive 10/08/2019 [facility] nter midazolam (ANES) Route: IV, Dr ug form: SOLN, ONCE, Stop date: 10/08/19 8:27:00 CDT Inactive 10/08/2019 [facility] nter ePHEDrine (ANES) Route: IV, Dr ug form: INJ, ONCE, Stop date: 10/08/19 8:27:00 CDT Inactive 10/08/2019 [facility] nter lidocaine (ANES) Route: IV, Dr ug form: INJ, ONCE, Stop date: 10/08/19 8:22:00 CDT Inactive 10/08/2019 [facility] nter propofol (ANES) Route: IV, Bernard g form: INJ, ONCE, Stop date: 10/08/19 8:22:00 CDT Inactive 10/08/2019 [facility] nter succinylcholine (ANES) Route: IV, Drug form: INJ, ONCE, Stop date: 10/08/19 8:22:00 CDT Inactive 10/08/2019 [facility] nter fentaNYL (ANES) Route: IV, Bernard g form: INJ, ONCE, Stop date: 10/08/19 8:22:00 CDT Inactive 10/08/2019 [facility] nter ceFAZolin Notes: (Same as [place]) No Longer Active 10/08/2019 [facility] Doxycycline PO, Q12H, 0 Refill (s) Active 10/04/2019 [facility] Zolpidem tartrate 10 MG Oral Tablet [Ambien] 10 mg = 1 tab, PO, Bedtime, # 14 tab, 0 Refill(s) Active 10/04/2019 [facility] nt aripiprazole 10 MG Oral Tablet [Abilify] 10 mg = 1 tab, PO, Daily, # 30 tab, 0 Refill(s) Active 10/04/2019 [facility] nt Acetaminophen 300 MG / Codeine Phosphate 30 MG Oral Tablet [Tylenol with Codeine #3] 1 tab, PO, Q6H, PRN Pain Score 7-10, X 1 5 day, # 20 tab, 0 Refill(s) Active 01/15/2019 [facility] Aspirin 325 MG Enteric Coated Tablet 325 mg = 1 tab, PO, BID, # 38 tab, 0 Refill(s) Active 01/15/2019 [facility] nter methocarbamol 500 mg oral tablet 1,000 mg = 2 tab, PO, Q8Hnow, 0 Refill(s) Active 01/15/2019 [facility] Acetaminophen 500 MG Oral Tablet 1,000 mg = 2 tab, PO, Q6H, PRN Pain Score 4-6, X 10 day, # 24 tab, 0 Refill(s) Active 01/15/2019 [facility] Aspirin 325 MG Enteric Coated Tablet 325 mg = 1 tab, PO, BID, # 42 tab, 0 Refill(s) Inactive 01/15/2019 [facility] nter gabapentin 300 MG Oral Capsule 300 mg = 1 cap, PO, Q8H, # 21 cap, 0 Refill(s) Active 01/15/2019 [facility] Acetaminophen 300 MG / Codeine Phosphate 30 MG Oral Tablet [Tylenol with Codeine #3] 1 tab, PO, Q6H, PRN Pain Score 7-10, X 1 5 day, # 60 tab, 0 Refill(s) Inactive 01/15/2019 [facility] Tetrahydrocannabinol Notes: (S jennifer as: Marinol) No Longer Active 01/13/2019 [facility] 24 HR Bupropion Hydrochloride 300 MG Ext ended Release Tablet [Wellbutrin] 300 mg = 1 tab, PO, QAM, # 30 tab, 0 Ref ill(s) Active 01/12/2019 [facility] methocarbamol 750 mg oral tablet 750 mg = 1 tab, PO, BID, NEEDED, # 60 tab, 0 Refill(s) No Longer Active 01/12/2019 [facility] nter Oxycodone Hydrochloride 5 MG Oral Tablet Notes: (Same as: Roxicodone) No Longer Active 01/12/2019 [facility] nter Methocarbamol Notes: (Same as: Robaxin) No Longer Active 01/12/2019 [facility] Wellbutrin XL Notes: (Same as: Wellbutrin XL) "Do Not Crush" No Longer Active 01/12/2019 [facility] Dextrose 50% Syringe 12.5 gm, 25 mL, Route: IVP, Drug Form: INJ, Dosing Weight 59.091, kg, PRN, PRN Blood Glucose Results, Start date: 01/12/19 2:03:00 CDT, Duration: 30 day, Stop date: 02/11/19 1:02:00 SHALLOT PACKER, 0 No Longer Active 01/12/2019 [facility] Glucagon 1 mg, Route: IM, Drug form: PDR/INJ, PRN, Dosing Weight 59.091, kg, PRN Blood Glucose Results, Start date: 01/12/19 2:03:00 CDT, Duration: 30 day, Stop date: 02/11/19 1:02:00 SHALLOT PACKER, 0 No Longer Active 01/12/2019 [facility] Potassium Chloride Notes: (Leonel e as: K-Dur 20) "Do Not Crush" Give with food and full glass of water For patients unable to swallow tablet, dissolve in one half glass of water. Allow about 2 minutes for the tab lets to disintegrate. Stir before giving to prepare slurry and administer. Please exclude Patients with feeding tube less than 14 Tamazight (Dobhoff, J-tube etc) and pediatric and patients. Inactive 01/12/2019 [facility] nter zolpidem Notes: (Same As: Ambi en) No Longer Active 01/12/2019 [facility] Ambien CR 12.5 mg, Route: PO, Drug form: ERTAB, Bedtime, Dosing Weight 59.091, kg, PRN Sleep, Start date: 01/11/19 21:40:00 CDT, Duration: 30 day, Stop date: 02/10/19 21:39:00 SHALLOT PACKER Inactive 01/12/2019 [facility] Lexapro Notes: (Same as: Lexap ro) No Longer Active 01/12/2019 [facility] Celebrex Notes: NSAID. Please check indication. Not for seizure. (Same As: CeleBREX) N o Longer Active 01/12/2019 [facility] nter Aspirin Enteric Coated Notes: (Do Not Crush) Do not crush or chew. No Longer Activ e 01/11/2019 [facility] Tenex Notes: (Same as: Tenex) Non-Formulary Drug No Longer Active 01/11/2019 [facility] Topamax Notes: (Same As: Topam ax) "Do Not Crush" No Longer Active 01/11/2019 [facility] Cefazolin Notes: (Same As: Anc ef, Kefzol) MEDICATION WASTE Product Size: 1000 mg Product Wasted: ___ mg No Longer Active 01/11/2019 [facility] gabapentin Notes: (Same as: Ne urontin) No Longer Active 01/11/2019 [facility] Tylenol 650 mg, Route: PO, Bernard g form: TAB, Q6H, Dosing Weight 59.091, kg, Start date: 01/11/19 12:00:00 CDT, Duration: 30 day, Stop date: 02/10/19 6:00:00 SHALLOT PACKER Inactive 01/11/2019 [facility] nter Acetaminophen Notes: Max aceta minophen 4000 mg/day (4 gm/day). (Same as: Tylenol Extra Strength) No Longer Active 01/11/2019 [facility] Tramadol Notes: Not to exceed 400mg/day. (Same As: Ultram) No Longer Active 01/11/2019 [facility] ropivacaine Notes: Same as: Na ropin No Longer Active 01/11/2019 [facility] ondansetron (ANES) Route: IV, Drug form: INJ, ONCE, Stop date: 01/11/19 10:04:00 CDT Inactive 01/11/2019 [facility] nter ketOROLAC (ANES) IV, ONCE Inactive 01/11/2019 [facility] nter Lactated Ringers IV 1,000 mL 1 ,000 mL, Rate: 75 ml/hr, Infuse over: 13.3 hr, Route: IV, Dosing Weight 59.091 kg, Total Volume: 1,000, Start date: 01/11/19 10:01:00 CDT, Duration: 30 day, Stop date: 02/10/19 10:00:00 SHALLOT PACKER, 1.63, m2, 0 No Longer Active 01/11/2019 [facility] nter Oxycodone Hydrochloride 5 MG Oral Tablet Notes: (Same as: Roxicodone) No Longer Active 01/11/2019 [facility] nter Hydralazine Notes: (Same as: A presoline) Push over 5 minutes Inactive 01/11/2019 [facility] Hydromorphone Notes: Same as D ilaudid Inactive 01/11/2019 [facility] Flumazenil Notes: (Same as: Ro mazicon) Inactive 01/11/2019 [facility] Naloxone Notes: Same as Narcan Inactive 01/11/2019 [facility] glycopyrronium Notes: (Same as : Robinul) Inactive 01/11/2019 [facility] Ondansetron Notes: (Same as: Jean nielson) MEDICATION WASTE Product Size: 4 mg Product Wasted: ___ mg Inactive 01/11/2019 [facility] Promethazine Notes: Do not giv e IV push. (Same as: Phenergan) Inactive 01/11/2019 [facility] Hydromorphone Notes: Same as D ilaudid Inactive 01/11/2019 [facility] Flumazenil Notes: (Same as: Ro mazicon) Inactive 01/11/2019 [facility] Naloxone Notes: Same as Narcan Inactive 01/11/2019 [facility] Ondansetron Notes: (Same as: Jean nielson) MEDICATION WASTE Product Size: 4 mg Product Wasted: ___ mg Inactive 01/11/2019 [facility] hydromorphone (ANES) Route: IV , Drug form: INJ, ONCE, Stop date: 01/11/19 9:06:00 CDT Inactive 01/11/2019 [facility] nter midazolam (ANES) Route: IV, Dr ug form: SOLN, ONCE, Stop date: 01/11/19 8:46:00 CDT Inactive 01/11/2019 [facility] nter dexamethasone (ANES) Route: IV , Drug form: INJ, ONCE, Stop date: 01/11/19 8:46:00 CDT Inactive 01/11/2019 [facility] nter glycopyrrolate (ANES) Route: I V, Drug form: INJ, ONCE, Stop date: 01/11/19 8:46:00 CDT Inactive 01/11/2019 [facility] nter ePHEDrine (ANES) Route: IV, Dr ug form: INJ, ONCE, Stop date: 01/11/19 8:36:00 CDT Inactive 01/11/2019 [facility] nter famotidine (ANES) Route: IV, D rug form: INJ, ONCE, Stop date: 01/11/19 8:36:00 CDT Inactive 01/11/2019 [facility] nter lidocaine (ANES) Route: IV, Dr ug form: INJ, ONCE, Stop date: 01/11/19 8:31:00 CDT Inactive 01/11/2019 [facility] nter propofol (ANES) Route: IV, Bernard g form: INJ, ONCE, Stop date: 01/11/19 8:31:00 CDT Inactive 01/11/2019 [facility] nter rocuronium (ANES) Route: IV, D rug form: INJ, ONCE, Stop date: 01/11/19 8:31:00 CDT Inactive 01/11/2019 [facility] nter fentaNYL (ANES) Route: IV, Bernard g form: INJ, ONCE, Stop date: 01/11/19 8:31:00 CDT Inactive 01/11/2019 [facility] nter ketAMINE (ANES) Route: IV, Bernard g form: INJ, ONCE, Stop date: 01/11/19 8:31:00 CDT Inactive 01/11/2019 [facility] nter ceFAZolin (ANES) Route: IV, Dr ug form: INJ, ONCE, Stop date: 01/11/19 8:16:00 CDT Inactive 01/11/2019 [facility] nter Hydralazine 10 mg, Route: IVP, Q20Min, Dosing Weight 59.091, kg, PRN Elevated BP, Start date: 01/11/19 7:38:00 CDT, Duration: 2 doses or times, Stop date: Limited # of times Inactive 01/11/2019 [facility] nter Labetalol 10 mg, 2 mL, Route: IVP, Drug form: INJ, Q5Min, Dosing Weight 59.091, kg, PRN Elevated BP, Start date: 01/11/19 7:38:00 CDT, Duration: 5 doses or times, Stop date: 01/12/19 0:00:00 CDT, 0 Inactive 01/11/2019 [facility] Acetaminophen Notes: Max aceta minophen 4000 mg/day (4 gm/day). (Same as: Tylenol Extra Strength) Inactive 01/11/2019 [facility] Oxycodone Hydrochloride 5 MG Oral Tablet Notes: (Same as: Roxicodone) Inactive 01/11/2019 [facility] Hydromorphone 0.5 mg, Route: I WHITESMITH, Q5Min, Dosing Weight 59.091, kg, PRN Pain Score 7-10, Start date: 01/11/19 7:38:00 CDT, Duration: 4 doses or times, Stop date: Limited # of times Inactive 01/11/2019 [facility] nter Fentanyl Notes: (Same as: Subl imaze) Preservative free. Inactive 01/11/2019 [facility] Flumazenil 0.2 mg, Route: IVP, PRN, Dosing Weight 59.091, kg, PRN Benzodiazepine Reversal, Initial dose, Start date: 01/11/19 7:38:00 CDT, Duration: 30 day, Stop date: 02/10/19 6:37:00 SHALLOT PACKER Inactive 01/11/2019 [facility] Naloxone 0.4 mg, Route: IVP, Q 2MIN, Dosing Weight 59.091, kg, PRN Narcotic Reversal, Start date: 01/11/19 7:38:00 CDT, Duration: 8 doses or times, Stop date: Limited # of times Inactive 01/11/2019 [facility] nter Diphenhydramine Notes: (Same a s: Benadryl) Inactive 01/11/2019 [facility] Ondansetron 4 mg, Route: IVP, ONCE, Dosing Weight 59.091, kg, PRN Nausea & Vomiting, Start date: 01/11/19 7:38:00 CDT Inactive 01/11/2019 [facility] Promethazine Notes: Do not giv e IV push. (Same as: Phenergan) Inactive 01/11/2019 [facility] Lactated Ringers Injection IV (ANES) 1000 mL Route: IV, Total Volume: 1,000, Start date: 01/11/19 7:35:00 CDT, Stop date: 01/11/19 8:35:00 CDT Inactive 01/11/2019 [facility] ceFAZolin Notes: (Same as [place]) No Longer Active 01/11/2019 [facility] Escitalopram 20 MG Oral Tablet [Lexapro] 40 mg = 2 tab, PO, Bedtime, # 30 tab, 0 Refill(s) Active 01/08/2019 [facility] nter Guanfacine 1 MG Oral Tablet [Tenex] 1 mg = 1 tab, PO, BID, # 30 tab, 0 Refill(s) Active 01/08/2019 [facility] nter topiramate 100 MG Oral Tablet [Topamax] 100 mg = 1 tab, PO, BID, # 30 tab, 0 Refill(s) Active 01/08/2019 [facility] nter Zolpidem tartrate 12.5 MG Extended Relea se Tablet [Ambien] 12.5 mg = 1 tab, PO, Bedtime, PRN for sl eep, 0 Refill(s) Active 01/08/2019 [facility] Amphetamine aspartate 5 MG / Amphetamine Sulfate 5 MG / Dextroamphetamine saccharate 5 MG / Dextroamphetamine Sulfate 5 MG Oral Tablet [Adderall] 20 mg = 1 tab, PO, BID, # 60 tab, 0 Refi ll(s) Active 01/08/2019 [facility] 24 HR Bupropion Hydrochloride 300 MG Ext ended Release Tablet [Wellbutrin] 300 mg = 1 tab, PO, Daily, # 30 tab, 0 R efill(s) No Longer Active 01/08/2019 [facility] Allergies, Adverse Reactions, Alerts Substance Category Reaction Severity Reaction type Status Date Reported Comments Source No Known Medication Allergies Assertion Drug aller gy [facility] Immunizations Immunization Date Given Site Status Last Updated Comments Source influenza virus vaccine, inactivated 01/15/2019 Left Deltoid completed [facility] Results Order Name Results Value Reference Range Date Interpretation Comments Source IMMUNOLOGY Coronavirus (COVID-19) NA A Not Detected (10/05/19 10:08 AM) Not Detected 10/05/2019 [facility] CHEM PANEL Glucose Lvl 98 70 - 99 01/13/2019 [facility] CHEM PANEL BUN 12 7 - 22 01/13/2019 [facility] CHEM PANEL Creatinine Lvl 0.77 0.50 - 1.40 01/13/2019 [facility] CHEM PANEL Sodium Lvl 144 135 - 145 01/13/2019 [facility] CHEM PANEL Potassium Lvl 3.8 3.5 - 5.1 01/13/2019 [facility] CHEM PANEL Chloride Lvl 113 95 - 109 01/13/2019 [facility] CHEM PANEL CO2 24 24 - 32 01/13/2019 [facility] CHEM PANEL Calcium Lvl 7.7 8.5 - 10.5 01/13/2019 [facility] CHEM PANEL eGFR 91 01/13/2019 Result Comment: The eGFR is calculated using the CKD-EPI formula. In most young, healthy individuals the eGFR will be >90 mL/min/1.73m2. The eGFR declines with age. An eGFR of 60-89 may be normal in some populations, particularly the elderly, for whom the CKD-EPI formula has not been extensively validated. Use of the eGFR is not recommended in the following populations:

Individuals with unstable creatinine concentrations, including patients and those with serious co-morbid conditions.

Patients with extremes in muscle mass or diet.

The data above are obtained from the National Kidney Disease Education Program (NKDEP) which additionally recommends that when the eGFR is used in patients with extremes of body mass index for purposes of drug dosing, the eGFR should be multiplied by the estimated BMI. [facility] CHEM PANEL AGAP 10.8 10.0 - 20.0 01/13/2019 [facility] HEMATOLOGY Segs 66.5 45.0 - 75.0 01/13/2019 [facility] HEMATOLOGY Lymphocytes 22.3 20.0 - 40.0 01/13/2019 [facility] HEMATOLOGY Monocytes 9.7 2.0 - 12.0 01/13/2019 [facility] HEMATOLOGY Eosinophils 1.1 0.0 - 4.0 01/13/2019 [facility] HEMATOLOGY Basophils 0.4 0.0 - 1.0 01/13/2019 [facility] HEMATOLOGY Neutrophils # 3.8 1.5 - 8.1 01/13/2019 [facility] HEMATOLOGY Lymphocytes # 1.3 1.0 - 5.5 01/13/2019 [facility] HEMATOLOGY Monocytes # 0.6 0.0 - 0.8 01/13/2019 [facility] HEMATOLOGY Eosinophils # 0.1 0.0 - 0.5 01/13/2019 [facility] HEMATOLOGY WBC 5.7 3.7 - 10.4 01/13/2019 [facility] HEMATOLOGY RBC 3.39 4.20 - 5.40 01/13/2019 [facility] HEMATOLOGY Hgb 11.1 12.0 - 16.0 01/13/2019 [facility] HEMATOLOGY Hct 33.2 36.0 - 48.0 01/13/2019 [facility] HEMATOLOGY MCV 98.0 80.0 - 98.0 01/13/2019 [facility] HEMATOLOGY MCH 32.9 27.0 - 31.0 01/13/2019 [facility] HEMATOLOGY MCHC 33.5 32.0 - 36.0 01/13/2019 [facility] HEMATOLOGY RDW 13.8 11.5 - 14.5 01/13/2019 [facility] HEMATOLOGY Platelet 199 133 - 450 01/13/2019 [facility] HEMATOLOGY MPV 8.1 7.4 - 10.4 01/13/2019 [facility] CHEM PANEL Glucose Lvl 110 70 - 99 01/12/2019 [facility] CHEM PANEL BUN 13 7 - 22 01/12/2019 [facility] CHEM PANEL Creatinine Lvl 0.87 0.50 - 1.40 01/12/2019 [facility] CHEM PANEL Sodium Lvl 143 135 - 145 01/12/2019 [facility] CHEM PANEL Potassium Lvl 3.4 3.5 - 5.1 01/12/2019 [facility] CHEM PANEL Chloride Lvl 112 95 - 109 01/12/2019 [facility] CHEM PANEL CO2 25 24 - 32 01/12/2019 [facility] CHEM PANEL Calcium Lvl 8.0 8.5 - 10.5 01/12/2019 [facility] CHEM PANEL eGFR 78 01/12/2019 Result Comment: The eGFR is calculated using the CKD-EPI formula. In most young, healthy individuals the eGFR will be >90 mL/min/1.73m2. The eGFR declines with age. An eGFR of 60-89 may be normal in some populations, particularly the elderly, for whom the CKD-EPI formula has not been extensively validated. Use of the eGFR is not recommended in the following populations:

Individuals with unstable creatinine concentrations, including patients and those with serious co-morbid conditions.

Patients with extremes in muscle mass or diet.

The data above are obtained from the National Kidney Disease Education Program (NKDEP) which additionally recommends that when the eGFR is used in patients with extremes of body mass index for purposes of drug dosing, the eGFR should be multiplied by the estimated BMI. [facility] CHEM PANEL AGAP 9.4 10.0 - 20.0 01/12/2019 [facility] HEMATOLOGY WBC 6.5 3.7 - 10.4 01/12/2019 [facility] HEMATOLOGY RBC 3.28 4.20 - 5.40 01/12/2019 [facility] HEMATOLOGY Hgb 11.0 12.0 - 16.0 01/12/2019 [facility] HEMATOLOGY Hct 31.8 36.0 - 48.0 01/12/2019 [facility] HEMATOLOGY MCV 96.7 80.0 - 98.0 01/12/2019 [facility] HEMATOLOGY MCH 33.4 27.0 - 31.0 01/12/2019 [facility] HEMATOLOGY MCHC 34.5 32.0 - 36.0 01/12/2019 [facility] HEMATOLOGY RDW 13.9 11.5 - 14.5 01/12/2019 [facility] HEMATOLOGY Platelet 194 133 - 450 01/12/2019 [facility] HEMATOLOGY MPV 7.6 7.4 - 10.4 01/12/2019 [facility] HEMATOLOGY Segs 65.6 45.0 - 75.0 01/12/2019 [facility] HEMATOLOGY Lymphocytes 23.0 20.0 - 40.0 01/12/2019 [facility] HEMATOLOGY Monocytes 10.3 2.0 - 12.0 01/12/2019 [facility] HEMATOLOGY Eosinophils 0.9 0.0 - 4.0 01/12/2019 [facility] HEMATOLOGY Basophils 0.2 0.0 - 1.0 01/12/2019 [facility] HEMATOLOGY Neutrophils # 4.2 1.5 - 8.1 01/12/2019 [facility] HEMATOLOGY Lymphocytes # 1.5 1.0 - 5.5 01/12/2019 [facility] HEMATOLOGY Monocytes # 0.7 0.0 - 0.8 01/12/2019 [facility] HEMATOLOGY Eosinophils # 0.1 0.0 - 0.5 01/12/2019 [facility] Pathology Reports No Data Provided for This Section Diagnostic Reports Report Value Date Source Calcaneus series DX EXAM: XR L EFT CALCANEUS 2 VIEWS DATE: 01/11/2019 7:49 CDT INDICATION: POST OP XRAY ORIF LT CALC - POST OP XRAY ORIF LT CALC COMPARISON: CT dated 12/28/2018 TECHNIQUE: Axial and lateral radiographs of the calcaneus FINDINGS: Small plate and screws as well as long screws were used to transfix the comminuted tibial fracture with anatomic alignment and no hardware complication. No soft tissue abnormality is identified. IMPRESSION: Status post internal fixation of the comminuted calcaneus fracture with good alignment. 01/11/2019 [facility] Consultation Notes No Data Provided for This Section Discharge Summaries No Data Provided for This Section History and Physicals No Data Provided for This Section Vital Signs Vital Sign Value Date Comments Source Systolic (mm Hg) 100 10/08/2019 [facility] Diastolic (mm Hg) 56 10/08/2019 [facility] Respitory Rate 16 10/08/2019 [facility] Heart Rate 84 10/08/2019 [facility] Systolic (mm Hg) 97 10/08/2019 [facility] Diastolic (mm Hg) 54 10/08/2019 [facility] Respitory Rate 17 10/08/2019 [facility] Systolic (mm Hg) 100 10/08/2019 [facility] Diastolic (mm Hg) 57 10/08/2019 [facility] Respitory Rate 17 10/08/2019 [facility] Height 157.48 cm 10/08/2019 [facility] Weight 58.1 10/08/2019 [facility] BMI Calculated 23.43 10/08/2019 [facility] Heart Rate 59 10/08/2019 [facility] Height 157.48 cm 10/04/2019 [facility] Weight 56.818 10/04/2019 [facility] BMI Calculated 22.91 10/04/2019 [facility] Temperature Oral (F) 98.0 F 01/15/2019 [facility] Heart Rate 68 01/15/2019 [facility] Systolic (mm Hg) 118 01/15/2019 [facility] Diastolic (mm Hg) 74 01/15/2019 [facility] Temperature Oral (F) 98.0 F 01/15/2019 [facility] Heart Rate 72 01/15/2019 [facility] Systolic (mm Hg) 102 01/15/2019 [facility] Diastolic (mm Hg) 61 01/15/2019 [facility] Temperature Oral (F) 97.6 F 01/15/2019 [facility] Heart Rate 57 01/15/2019 [facility] Systolic (mm Hg) 121 01/15/2019 [facility] Diastolic (mm Hg) 77 01/15/2019 [facility] Respitory Rate 18 01/15/2019 [facility] Respitory Rate 18 01/15/2019 [facility] Respitory Rate 18 01/15/2019 [facility] Height 157.48 cm 01/11/2019 [facility] Weight 59.091 01/11/2019 [facility] BMI Calculated 23.83 01/11/2019 [facility] Height 157.48 cm 01/08/2019 [facility] Weight 59.091 01/08/2019 [facility] BMI Calculated 23.83 01/08/2019 [facility] Encounters Location Location Details Encounter Type Encounter Number Reason For Visit Attending Provider ADM Date DC Date Status Source [facility] Inpatient [id number] Mirlande Magallaneshar 01/11/2019 01/15/2019 [facility] [id number] Lawrence Gallardo 04/30/2019 05/30/2019 [facility] [id number] Lawrence Gallardo 06[facility]01/2019 07/01/2019 [facility] Day Surgery [id number] Lawrence Gallardo 10/08/2019 10/09/2019 [facility] Procedures Procedure Code Date Perfomer Comments Source Cholecystectomy [id number] 03/24/2016 [facility] Operation<sup>1</sup> [id number] 03/24/2016 TEETH REMOVAL IN PREPERATION FOR DENTURES [facility] Gastric bypass [id number] 03/24/2002 [facility] Tubal ligation [id number] 03/24/2001 [facility] Discectomy [id number] 03/24/1987 [facility] Appendectomy [id number] 03/24/1979 [facility] Assessment and Plan Assessment and Plan Date Source Extracted from:Title: APMS Block F/U Alexandrea ne Call Author: Pepper Mcfadden DO Date: 10/09/19 Attempted to contact patient to follow-up on block. Left voicemail at 0932 am. 10/09/2019 [facility] Extracted from:Title: Orthopaedic Roundi ng note Author: Gayla Huizar [employer]CH[employer]IT REPA[employer]ER Date: 01/15/19 Patient states she needs prior authorization for discharge medications. I have spoken to BS and submitted request. Patient has been notfied of prior authorization request. Extracted from:Title: History and Physical Author: Apolinar Melendez MD Date: 01/12/19 48-year-old female with PMH of ADHD, dep ression,history of fall early Decembercame in here for electivesurgical repair of herleft calcaneal fracture. 1.Closed displaced fracture of body of l eft calcaneus(S92.012A) Status post ORIFleft calcaneus Postoperative Ancef for 24 hours Strict elevationLLE, nonweightbearing LLE PT, OT once cleared by Ortho 2.Acute pain(R52) s/p nerve block Multimodal pain regimen 3.Fall(W19.XXXA) Mechanical fall PT, OT 4.ADHD(F90.9) ContinueAdderall 5.Depression(F32.9) ContinueWellbutrin, Lexapro 6.Hypokalemia(E87.6) Replete and repeat 7.Normocytic anemia(D64.9) Possibly related to surgery Monitor hemoglobin lovenox based on therapy eval 01/15/2019 [facility] Plan of Care No Data Provided for This Section Social History Social History Date Source Social History TypeResponse Alcohol Past, Last use: 10/2018. Substance Abuse Use: None. Smoking Status Never smoker; Type: Cigarettes; Previous treatment: None; Ready to change: No; Concerns about tobacco use in household: No; Lives with someone who smokes; Cigarette Smoking Last 365 Days No; Reg Smoking Cessation Counseling No entered on: 10/08/19 01/08/2019 [facility] Social History TypeResponse Alcohol Past, Last use: 10/2018. Substance Abuse Use: None. Smoking Status Never smoker; Type: Cigarettes; Previous treatment: None; Ready to change: No; Concerns about tobacco use in household: No; Lives with someone who smokes; Cigarette Smoking Last 365 Days No; Reg Smoking Cessation Counseling No entered on: 01/11/19 01/08/2019 [facility] Family History No Data Provided for This Section Advance Directives No Data Provided for This Section Functional Status No Data Provided for This Section
--- OUTSIDE RECORDS SUMMARY | 2019-11-05 22:50 | XMS REPORT | Summary of Care ---
Author Author [facility] Organization [facility] Address Unknown Phone Unavailable Encounter [facility] [place](DANIEL) [id number] Date(s): 10/08/19 - 10/08/19 [facility] [address] [employer] provided by [employer] [facility] [employer] [place] [address]- Discharge Disposition: Home or Self Care Attending [...]
--- OUTSIDE RECORDS SUMMARY | 2019-11-05 22:50 | XMS REPORT | Summary of Care ---
Author Author [facility] Address Unknown Phone Unavailable Encounter [facility] Yoli(DANIEL) [id number] Date(s): 06/01/19 - 06/30/19 [facility] Discharge Disposition: Home or Self Care Attending Physician: Lawrence Gallardo MD Vital Signs No data available for this section Problem List Condition Effective Dates Status Health Status Informan t Fall from Resolved ladder(Confirmed)1 Anxiety and 1987 Active depression(Confirmed ) Scoliosis(Confirmed) Active 1L CALCANEUS FX Allergies, Adverse Reactions, Alerts No Known Medication Allergies Medications No data available for this section Results No data available for this section Immunizations Given and Recorded Vaccine Date Status Refusal Reason influenza virus vaccine, inactivated 01/15/19 [facility] Procedures Procedure Date Related Diagnosis Body Site Status Cholecystectomy 2017 Completed Operation1 2016 Completed Gastric bypass 2002 [...] Smoking Cessation Counseling No entered on: 01/11/19 Assessment and Plan No data available for this section
--- OUTSIDE RECORDS SUMMARY | 2019-11-05 22:50 | XMS REPORT | Summary of Care ---
Author Author [facility] Address Unknown Phone Unavailable Encounter [facility] Encntr_rosario(FIN) [id number] Date(s): 04/30/19 - 05/29/19 [facility] Discharge Disposition: Home or Self Care Attending [...]
--- OUTSIDE RECORDS SUMMARY | 2019-11-05 22:50 | XMS REPORT | Summary of Care ---
Author Author [facility] Organization [facility] Address Unknown Phone Unavailable Encounter [facility](DANIEL) [id number] Date(s): 01/11/19 - 01/15/19 [facility] [address] [employer] provided by [facility] [place] [address]- Discharge Disposition: Home Care with Home Health Attending Physician: Mirlande Carrasco MD Admitting Physician: Lawrence Gallardo MD Referring Physician: Lawrence Gallardo MD Vital Signs 1 2 3 Most recent to oldest [Reference Range]: 157.48 cm (01/11/19 6:48 AM) 157.48 cm (01/08/19 12:07 PM) Height 98.0 DegF (01/15/19 5:00 PM) 98.0 DegF (01/15/19 12:00 PM) 97.6 DegF (01/15/19 7:30 AM) Temperature Oral [96.4-99.1 DegF] 118/74 mmHg (01/15/19 5:00 PM) 102/61 mmHg (01/15/19 12:00 PM) 121/77 mmHg (01/15/19 7:30 AM) Blood Pressure [90-140/60-90 mmHg] 18 BRMIN (01/15/19 4:00 AM) 18 BRMIN (01/14/19 11:51 PM) 18 BRMIN (01/14/19 8:07 PM) Respiratory Rate [14-20 BRMIN] 68 bpm (01/15/19 5:00 PM) 72 bpm (01/15/19 12:00 PM) 57 bpm *LOW* (01/15/19 7:30 AM) Peripheral Pulse Rate [60-100 bpm] 59.091 kg (01/11/19 6:48 AM) 59.091 kg (01/08/19 12:07 PM) Weight 23.83 m2 (01/11/19 6:48 AM) 23.83 m2 (01/08/19 12:07 PM) Body Mass Index Problem List Condition Effective Dates Status Health Status Informan t Fall from Resolved ladder(Confirmed)1 Anxiety and 1988 Active depression(Confirmed ) Scoliosis(Confirmed) Active 1L CALCANEUS FX Allergies, Adverse Reactions, Alerts No Known Medication Allergies Medications acetaminophen 1,000 mg, 2 tab, Route: PO, Drug form: TAB, Q6H, Dosing Weight 59.091, kg, Start date: 01/11/19 12:00:00 CDT, Duration: 30 day, Stop date: 02/10/19 6:00:00 FIREWALL ADMINISTRATOR, 0 Notes: Max acetaminophen 4000 mg/day (4 gm/day). (Same as: Tylenol Extra Streng th) Start Date: 01/11/19 Stop Date: 01/15/19 Status: Discontinued acetaminophen 500 mg oral tablet 1,000 mg = 2 tab, PO, Q6H, PRN Pain Score 4-6, X 10 day, # 24 tab, 0 Refill(s) Start Date: 01/15/19 Stop Date: 01/25/19 Status: Ordered Adderall 20 mg oral tablet 20 mg = 1 tab, PO, BID, # 60 tab, 0 Refill(s) Start Date: 01/08/19 Stop Date: 02/07/19 Status: Ordered Ambien CR 12.5 mg, Route: PO, Drug form: ERTAB, Bedtime, Dosing Weight 59.091, kg, PRN Sle ep, Start date: 01/11/19 21:40:00 CDT, Duration: 30 day, Stop date: 02/10/19 21: 39:00 FIREWALL ADMINISTRATOR Start Date: 01/11/19 Stop Date: 01/11/19 Status: Deleted Ambien CR 12.5 mg oral tablet, extended release 12.5 mg = 1 tab, PO, Bedtime, PRN for sleep, 0 Refill(s) Start Date: 01/08/19 Stop Date: 01/22/19 Status: Ordered ANES acetaminophen 1,000 mg, 2 tab, Route: PO, Drug form: TAB, ONCE, Dosing Weight 59.091, kg, PRN Pain Score 1-3, Start date: 01/11/19 7:38:00 CDT, 0 Notes: Max acetaminophen 4000 mg/day (4 gm/day). (Same as: Tylenol Extra Streng th) Start Date: 01/11/19 Stop Date: 01/11/19 Status: Discontinued ANES diphenhydrAMINE 12.5 mg, 0.25 mL, Route: IVP, Drug form: INJ, Q6H, Dosing Weight 59.091, kg, PRN Itching, Start date: 01/11/19 7:38:00 CDT, Duration: 1 day, Stop date: 01/12/19 7:37:00 CDT, 0 Notes: (Same as: Benadryl) Start Date: 01/11/19 Stop Date: 01/11/19 Status: Discontinued ANES fentaNYL 50 microgram, 1 mL, Route: IVP, Drug form: INJ, Q5Min, Dosing Weight 59.091, kg, PRN Pain Score 7-10, Priority: Routine, Start date: 01/11/19 7:38:00 CDT, Durat ion: 2 doses or times, Stop date: 01/12/19 0:00:00 CDT, 0 Notes: (Same as: Sublimaze) Preservative free. Start Date: 01/11/19 Stop Date: 01/11/19 Status: Discontinued ANES flumazenil 0.2 mg, 2 mL, Route: IVP, Drug form: INJ, PRN, Dosing Weight 59.091, kg, PRN James zodiazepine Reversal, Initial dose, Start date: 01/11/19 9:19:00 CDT, Duration: 1 day, Stop date: 01/12/19 9:18:00 CDT, 0 Notes: (Same as: Romazicon) Start Date: 01/11/19 Stop Date: 01/11/19 Status: Discontinued ANES flumazenil 0.2 mg, 2 mL, Route: IVP, Drug form: INJ, PRN, Dosing Weight 59.091, kg, PRN James zodiazepine Reversal, Initial dose, Start date: 01/11/19 9:39:00 CDT, Duration: 30 day, Stop date: 02/10/19 8:38:00 FIREWALL ADMINISTRATOR, 0 Notes: (Same as: Romazicon) Start Date: 01/11/19 Stop Date: 01/11/19 Status: Discontinued ANES flumazenil 0.2 mg, Route: IVP, PRN, Dosing Weight 59.091, kg, PRN Benzodiazepine Reversal, Initial dose, Start date: 01/11/19 7:38:00 CDT, Duration: 30 day, Stop date: 6:37:00 FIREWALL ADMINISTRATOR Start Date: 01/11/19 Stop Date: 01/11/19 Status: Discontinued ANES glycopyrrolate 0.2 mg, 1 mL, Route: IVP, Drug form: INJ, Q5Min, Dosing Weight 59.091, kg, PRN B radycardia, Start date: 01/11/19 9:39:00 CDT, Duration: 3 doses or times, Stop d ate: 01/12/19 0:00:00 CDT, 0 Notes: (Same as: Chun) Start Date: 01/11/19 Stop Date: 01/11/19 Status: Discontinued ANES hydrALAZINE 10 mg, 0.5 mL, Route: IVP, Drug form: INJ, Q20Min, Dosing Weight 59.091, kg, PRN Elevated BP, Start date: 01/11/19 9:39:00 CDT, Duration: 2 doses or times, Stop date: 01/12/19 0:00:00 CDT, 0 Notes: (Same as: Apresoline)Push over 5 minutes Start Date: 01/11/19 Stop Date: 01/11/19 Status: Discontinued ANES hydrALAZINE 10 mg, Route: IVP, Q20Min, Dosing Weight 59.091, kg, PRN Elevated BP, Start date : 01/11/19 7:38:00 CDT, Duration: 2 doses or times, Stop date: Limited # of time s Start Date: 01/11/19 Stop Date: 01/11/19 Status: Discontinued ANES HYDROmorphone 0.5 mg, 0.25 mL, Route: IVP, Drug form: INJ, Q5Min, Dosing Weight 59.091, kg, CO N Pain Score 7-10, Start date: 01/11/19 9:19:00 CDT, Duration: 4 doses or times, Stop date: 01/12/19 0:00:00 CDT, 0 Notes: Same as Dilaudid Start Date: 01/11/19 Stop Date: 01/11/19 Status: Discontinued ANES HYDROmorphone 0.5 mg, 0.25 mL, Route: IVP, Drug form: INJ, Q5Min, Dosing Weight 59.091, kg, CO N Pain Score 7-10, Start date: 01/11/19 9:39:00 CDT, Duration: 4 doses or times, Stop date: 01/12/19 0:00:00 CDT, 0 Notes: Same as Dilaudid Start Date: 01/11/19 Stop Date: 01/11/19 Status: Discontinued ANES HYDROmorphone 0.5 mg, Route: IVP, Q5Min, Dosing Weight 59.091, kg, PRN Pain Score 7-10, Start date: 01/11/19 7:38:00 CDT, Duration: 4 doses or times, Stop date: Limited # of times Start Date: 01/11/19 Stop Date: 01/11/19 Status: Discontinued ANES labetalol 10 mg, 2 mL, Route: IVP, Drug form: INJ, Q5Min, Dosing Weight 59.091, kg, PRN El evated BP, Start date: 01/11/19 7:38:00 CDT, Duration: 5 doses or times, Stop da te: 01/12/19 0:00:00 CDT, 0 Start Date: 01/11/19 Stop Date: 01/11/19 Status: Discontinued ANES naloxone 0.4 mg, 1 mL, Route: IVP, Drug form: INJ, Q2MIN, Dosing Weight 59.091, kg, PRN N arcotic Reversal, Start date: 01/11/19 9:19:00 CDT, Duration: 8 doses or times, Stop date: 01/12/19 0:00:00 CDT, 0 Notes: Same as Narcan Start Date: 01/11/19 Stop Date: 01/11/19 Status: Discontinued ANES naloxone 0.4 mg, 1 mL, Route: IVP, Drug form: INJ, Q2MIN, Dosing Weight 59.091, kg, PRN N arcotic Reversal, Start date: 01/11/19 9:39:00 CDT, Duration: 8 doses or times, Stop date: 01/12/19 0:00:00 CDT, 0 Notes: Same as Narcan Start Date: 01/11/19 Stop Date: 01/11/19 Status: Discontinued ANES naloxone 0.4 mg, Route: IVP, Q2MIN, Dosing Weight 59.091, kg, PRN Narcotic Reversal, Star t date: 01/11/19 7:38:00 CDT, Duration: 8 doses or times, Stop date: Limited # o f times Start Date: 01/11/19 Stop Date: 01/11/19 Status: Discontinued ANES ondansetron 4 mg, 2 mL, Route: IVP, Drug form: INJ, ONCE, Dosing Weight 59.091, kg, PRN Naus ea & Vomiting, Start date: 01/11/19 9:19:00 CDT, 0 Notes: (Same as: Bravo) MEDICATION WASTE Product Size: 4 mgProduct Was jyoti: ___ mg Start Date: 01/11/19 Stop Date: 01/11/19 Status: Discontinued ANES ondansetron 4 mg, 2 mL, Route: IVP, Drug form: INJ, ONCE, Dosing Weight 59.091, kg, PRN Naus ea & Vomiting, Start date: 01/11/19 9:39:00 CDT, 0 Notes: (Same as: Bravo) MEDICATION WASTE Product Size: 4 mgProduct Was jyoti: ___ mg Start Date: 01/11/19 Stop Date: 01/11/19 Status: Discontinued ANES ondansetron 4 mg, Route: IVP, ONCE, Dosing Weight 59.091, kg, PRN Nausea & Vomiting, Start date: 01/11/19 7:38:00 CDT Start Date: 01/11/19 Stop Date: 01/11/19 Status: Discontinued ANES oxyCODONE 5 mg immediate release tablet 5 mg, 1 tab, Route: PO, Drug form: TAB, Q4H, Dosing Weight 59.091, kg, PRN Pain Score 4-6, Start date: 01/11/19 7:38:00 CDT, Duration: 1 day, Stop date: 9 7:37:00 CDT, 0 Notes: (Same as: Roxicodone) Start Date: 01/11/19 Stop Date: 01/11/19 Status: Discontinued ANES promethazine 6.25 mg, 0.25 mL, Route: IVPB, Drug form: INJ, ONCE, Dosing Weight 59.091, kg, P RN Nausea & Vomiting, Start date: 01/11/19 9:39:00 CDT, 0 Notes: Do not give IV push. (Same as: Phenergan) Start Date: 01/11/19 Stop Date: 01/11/19 Status: Discontinued ANES promethazine 6.25 mg, 0.25 mL, Route: IVPB, Drug form: INJ, ONCE, Dosing Weight 59.091, kg, P RN Nausea & Vomiting, Start date: 01/11/19 7:38:00 CDT, 0 Notes: Do not give IV push. (Same as: Phenergan) Start Date: 01/11/19 Stop Date: 01/11/19 Status: Discontinued aspirin 325 mg tablet, enteric coated 325 mg = 1 tab, PO, BID, # 42 tab, 0 Refill(s) Start Date: 01/15/19 Stop Date: 01/15/19 Status: Discontinued aspirin 325 mg tablet, enteric coated 325 mg = 1 tab, PO, BID, # 38 tab, 0 Refill(s) Start Date: 01/15/19 Stop Date: 02/03/19 Status: Ordered Aspirin Enteric Coated 325 mg, 1 tab, Route: PO, Drug form: ECTAB, BID, Dosing Weight 59.091, kg, Start date: 01/11/19 17:00:00 CDT, Duration: 30 day, Stop date: 02/10/19 9:00:00 FIREWALL ADMINISTRATOR, 0 Notes: (Do Not Crush) Do not crush or chew. Start Date: 01/11/19 Stop Date: 01/15/19 Status: Discontinued ceFAZolin 2 gm, 20 mL, Route: IVP, Drug form: SOLN, PRE OP, Start date: 01/10/19 23:00:00 CDT, Duration: 1 day, Stop date: 01/11/19 22:59:00 CDT, ABX Indication: Surgical Prophylaxis, 0 Notes: (Same as Ancef) Start Date: 01/10/19 Stop Date: 01/15/19 Status: Discontinued ceFAZolin (ANES) Route: IV, Drug form: INJ, ONCE, Stop date: 01/11/19 8:16:00 CDT Start Date: 01/11/19 Stop Date: 01/11/19 Status: Completed ceFAZolin + sterile water 10 mL 1 gm, Route: IVPB, Q8H, Dosing Weight 59.091, kg, (for patients weighing less th an 70kg), Start date: 01/11/19 16:00:00 CDT, Duration: 3 doses or times, Stop da te: 01/12/19 8:00:00 CDT, ABX Indication: Surgical Prophylaxis, 0 Notes: (Same As: Ancef, Kefzol) MEDICATION WASTE Product Size: 1000 mgP roduct Wasted: ___ mg Start Date: 01/11/19 Stop Date: 01/12/19 Status: Completed CeleBREX 200 mg, 1 cap, Route: PO, Drug form: CAP, Q12H, Dosing Weight 59.091, kg, Start date: 01/11/19 21:00:00 CDT, Duration: 30 day, Stop date: 02/10/19 9:00:00 FIREWALL ADMINISTRATOR, 0 Notes: NSAID. Please check indication. Not for seizure. (Same As: CeleBREX) Start Date: 01/11/19 Stop Date: 01/15/19 Status: Discontinued dexamethasone (ANES) Route: IV, Drug form: INJ, ONCE, Stop date: 01/11/19 8:46:00 CDT Start Date: 01/11/19 Stop Date: 01/11/19 Status: Completed Dextrose 50% Syringe 12.5 gm, 25 mL, Route: IVP, Drug Form: INJ, Dosing Weight 59.091, kg, PRN, PRN B lood Glucose Results, Start date: 01/12/19 2:03:00 CDT, Duration: 30 day, Stop d ate: 02/11/19 1:02:00 FIREWALL ADMINISTRATOR, 0 Start Date: 01/12/19 Stop Date: 01/15/19 Status: Discontinued Dextrose 50% Syringe 25 gm, 50 mL, Route: IVP, Drug Form: INJ, Dosing Weight 59.091, kg, PRN, PRN Blo od Glucose Results, Start date: 01/12/19 2:03:00 CDT, Duration: 30 day, Stop tra e: 02/11/19 1:02:00 FIREWALL ADMINISTRATOR, 0 Start Date: 01/12/19 Stop Date: 01/15/19 Status: Discontinued dronabinol 5 mg, 1 cap, Route: PO, Drug form: CAP, [id number], Dosing Weight 59.091, kg, Start date: 01/12/19 21:00:00 CDT, Duration: 30 day, Stop date: 02/11/19 9:00:00 FIREWALL ADMINISTRATOR, 0 Notes: (Same as: Marinol) Start Date: 01/12/19 Stop Date: 01/15/19 Status: Discontinued ePHEDrine (ANES) Route: IV, Drug form: INJ, ONCE, Stop date: 01/11/19 8:36:00 CDT Start Date: 01/11/19 Stop Date: 01/11/19 Status: Completed famotidine (ANES) Route: IV, Drug form: INJ, ONCE, Stop date: 01/11/19 8:36:00 CDT Start Date: 01/11/19 Stop Date: 01/11/19 Status: Completed fentaNYL (ANES) Route: IV, Drug form: INJ, ONCE, Stop date: 01/11/19 8:31:00 CDT Start Date: 01/11/19 Stop Date: 01/11/19 Status: Completed gabapentin 300 mg, 1 cap, Route: PO, Drug form: CAP, Q8H, Dosing Weight 59.091, kg, (CrCl > 60 ml/min), Start date: 01/11/19 16:00:00 CDT, Duration: 30 day, Stop date: 8:00:00 FIREWALL ADMINISTRATOR, 0 Notes: (Same as: Neurontin) Start Date: 01/11/19 Stop Date: 01/15/19 Status: Discontinued gabapentin 300 mg oral capsule 300 mg = 1 cap, PO, Q8H, # 21 cap, 0 Refill(s) Start Date: 01/15/19 Stop Date: 01/22/19 Status: Ordered glucagon 1 mg, Route: IM, Drug form: PDR/INJ, PRN, Dosing Weight 59.091, kg, PRN Blood Gl ucose Results, Start date: 01/12/19 2:03:00 CDT, Duration: 30 day, Stop date: 1:02:00 FIREWALL ADMINISTRATOR, 0 Start Date: 01/12/19 Stop Date: 01/15/19 Status: Discontinued glycopyrrolate (ANES) Route: IV, Drug form: INJ, ONCE, Stop date: 01/11/19 8:46:00 CDT Start Date: 01/11/19 Stop Date: 01/11/19 Status: Completed hydromorphone (ANES) Route: IV, Drug form: INJ, ONCE, Stop date: 01/11/19 9:06:00 CDT Start Date: 01/11/19 Stop Date: 01/11/19 Status: Completed ketAMINE (ANES) Route: IV, Drug form: INJ, ONCE, Stop date: 01/11/19 8:31:00 CDT Start Date: 01/11/19 Stop Date: 01/11/19 Status: Completed ketOROLAC (ANES) IV, ONCE Start Date: 01/11/19 Stop Date: 01/11/19 Status: Completed Lactated Ringers Injection IV (ANES) 1000 mL Route: IV, Total Volume: 1,000, Start date: 01/11/19 7:35:00 CDT, Stop date: 8:35:00 CDT Start Date: 01/11/19 Stop Date: 01/11/19 Status: Completed Lactated Ringers IV 1,000 mL 1,000 mL, Rate: 75 ml/hr, Infuse over: 13.3 hr, Route: IV, Dosing Weight 59.091 kg, Total Volume: 1,000, Start date: 01/11/19 10:01:00 CDT, Duration: 30 day, St op date: 02/10/19 10:00:00 FIREWALL ADMINISTRATOR, 1.63, m2, 0 Start Date: 01/11/19 Stop Date: 01/15/19 Status: Discontinued Lexapro 40 mg, 4 tab, Route: PO, Drug form: TAB, Bedtime, Dosing Weight 59.091, kg, Star t date: 01/11/19 21:00:00 CDT, Duration: 30 day, Stop date: 02/09/19 21:00:00 CS T, 0 Notes: (Same as: Lexapro) Start Date: 01/11/19 Stop Date: 01/15/19 Status: Discontinued Lexapro 20 mg oral tablet 40 mg = 2 tab, PO, Bedtime, # 30 tab, 0 Refill(s) Start Date: 01/08/19 Status: Ordered lidocaine (ANES) Route: IV, Drug form: INJ, ONCE, Stop date: 01/11/19 8:31:00 CDT Start Date: 01/11/19 Stop Date: 01/11/19 Status: Completed methocarbamol 1,000 mg, 2 tab, Route: PO, Drug form: TAB, Q8Hnow, Dosing Weight 59.091, kg, Pr iority: NOW, Start date: 01/12/19 17:03:00 CDT, Duration: 30 day, Stop date: 9:03:00 FIREWALL ADMINISTRATOR, 0 Notes: (Same as:Robaxin) Start Date: 01/12/19 Stop Date: 01/15/19 Status: Discontinued methocarbamol 500 mg oral tablet 1,000 mg = 2 tab, PO, Q8Hnow, 0 Refill(s) Start Date: 01/15/19 Stop Date: 01/20/19 Status: Ordered methocarbamol 750 mg oral tablet 750 mg = 1 tab, PO, BID, NEEDED, # 60 tab, 0 Refill(s) Start Date: 01/12/19 Stop Date: 01/15/19 Status: Discontinued midazolam (ANES) Route: IV, Drug form: SOLN, ONCE, Stop date: 01/11/19 8:46:00 CDT Start Date: 01/11/19 Stop Date: 01/11/19 Status: Completed ondansetron (ANES) Route: IV, Drug form: INJ, ONCE, Stop date: 01/11/19 10:04:00 CDT Start Date: 01/11/19 Stop Date: 01/11/19 Status: Completed oxyCODONE 5 mg immediate release 10 mg, 2 tab, Route: PO, Drug form: TAB, Q4H, Dosing Weight 59.091, kg, PRN Pain Score 7-10, Start date: 01/12/19 17:04:00 CDT, Duration: 5 day, Stop date: 12/23 10/09 17:03:00 CDT, 0 Notes: (Same as: Roxicodone) Start Date: 01/12/19 Stop Date: 01/15/19 Status: Discontinued oxyCODONE 5 mg oral tablet, immediate release 5 mg, 1 tab, Route: PO, Drug form: TAB, Q4H, Dosing Weight 59.091, kg, PRN Pain Score 4-6, Start date: 01/11/19 9:56:00 CDT, Duration: 30 day, Stop date: 9:55:00 FIREWALL ADMINISTRATOR, 0 Notes: (Same as: Roxicodone) Start Date: 01/11/19 Stop Date: 01/15/19 Status: Discontinued potassium chloride 20 mEq, 1 tab, Route: PO, Drug form: ERTAB, ONCE, Dosing Weight 59.091, kg, Star t date: 01/12/19 1:56:00 CDT, Stop date: 01/12/19 1:56:00 CDT, 0 Notes: (Same as: K-Dur 20)"Do Not Crush" Give with food and full glass of water For patients unable to swallow tablet, dissolve in one half glass of water. Allo w about 2 minutes for the tablets to disintegrate. Stir before giving to prepare slurry and administer.Please exclude Patients with feeding tube less than 14 [place] (Dobhoff, J-tube etc) and pediatric and patients. Start Date: 01/12/19 Stop Date: 01/12/19 Status: Completed propofol (ANES) Route: IV, Drug form: INJ, ONCE, Stop date: 01/11/19 8:31:00 CDT Start Date: 01/11/19 Stop Date: 01/11/19 Status: Completed rocuronium (ANES) Route: IV, Drug form: INJ, ONCE, Stop date: 01/11/19 8:31:00 CDT Start Date: 01/11/19 Stop Date: 01/11/19 Status: Completed Ropivacaine 0.2% nerve block CADD 200 mL Route: NERVE BLOCK, Continuous Rate: 6, ml/hr, Side: Left Dosing Site: Sciatic p opliteal, [employer] dose 3 mL, [employer] dose lockout: 30 minutes, 1 Hour limit: 12 mL, 200, mL, Start date: 01/11/19 11:14:00 CDT, Duration: 30, day, Drug Form: INJ, Total volume: 20... Notes: Same as: Rhysin Start Date: 01/11/19 Stop Date: 01/14/19 Status: Discontinued Tenex 1 mg, 1 tab, Route: PO, Drug form: TAB, BID, Dosing Weight 59.091, kg, Start tra e: 01/11/19 17:00:00 CDT, Duration: 30 day, Stop date: 02/10/19 9:00:00 FIREWALL ADMINISTRATOR, 0 Notes: (Same as: Tenex) Non-Formulary Drug Start Date: 01/11/19 Stop Date: 01/15/19 Status: Discontinued Tenex 1 mg oral tablet 1 mg = 1 tab, PO, BID, # 30 tab, 0 Refill(s) Start Date: 01/08/19 Status: Ordered Topamax 100 mg, 1 tab, Route: PO, Drug form: TAB, BID, Dosing Weight 59.091, kg, Start d ate: 01/11/19 17:00:00 CDT, Duration: 30 day, Stop date: 02/10/19 9:00:00 FIREWALL ADMINISTRATOR, 0 Notes: (Same As: Topamax)"Do Not Crush" Start Date: 01/11/19 Stop Date: 01/15/19 Status: Discontinued Topamax 100 mg oral tablet 100 mg = 1 tab, PO, BID, # 30 tab, 0 Refill(s) Start Date: 01/08/19 Status: Ordered tramadol 50 mg, 1 tab, Route: PO, Drug form: TAB, Q6H, Dosing Weight 59.091, kg, Start da te: 01/11/19 12:00:00 CDT, Duration: 30 day, Stop date: 02/10/19 6:00:00 FIREWALL ADMINISTRATOR, 0 Notes: Not to exceed 400mg/day. (Same As: Ultram) Start Date: 01/11/19 Stop Date: 01/12/19 Status: Discontinued Tylenol 650 mg, Route: PO, Drug form: TAB, Q6H, Dosing Weight 59.091, kg, Start date: 12:00:00 CDT, Duration: 30 day, Stop date: 02/10/19 6:00:00 FIREWALL ADMINISTRATOR Start Date: 01/11/19 Stop Date: 01/11/19 Status: Canceled Tylenol with Codeine #3 oral tablet 1 tab, PO, Q6H, PRN Pain Score 7-10, X 15 day, # 60 tab, 0 Refill(s) Start Date: 01/15/19 Stop Date: 01/15/19 Status: Discontinued Tylenol with Codeine #3 oral tablet 1 tab, PO, Q6H, PRN Pain Score 7-10, X 15 day, # 20 tab, 0 Refill(s) Start Date: 01/15/19 Stop Date: 01/30/19 Status: Ordered Wellbutrin XL 300 mg, 2 tab, Route: PO, Drug form: ERTAB, Daily, Dosing Weight 59.091, kg, Sta rt date: 01/12/19 9:00:00 CDT, Duration: 30 day, Stop date: 02/10/19 9:00:00 FIREWALL ADMINISTRATOR , 0 Notes: (Same as: Wellbutrin XL)"Do Not Crush" Start Date: 01/12/19 Stop Date: 01/15/19 Status: Discontinued Wellbutrin XL 300 mg/24 hours oral tablet, extended release 300 mg = 1 tab, PO, QAM, # 30 tab, 0 Refill(s) Start Date: 01/12/19 Status: Ordered Wellbutrin XL 300 mg/24 hours oral tablet, extended release 300 mg = 1 tab, PO, Daily, # 30 tab, 0 Refill(s) Start Date: 01/08/19 Stop Date: 01/12/19 Status: Discontinued zolpidem 10 mg, 2 tab, Route: PO, Drug form: TAB, Bedtime, Start date: 01/11/19 22:00:00 CDT, Duration: 30 day, Stop date: 02/10/19 21:00:00 FIREWALL ADMINISTRATOR, 0 Notes: (Same As: Shaniqua) Start Date: 01/11/19 Stop Date: 01/15/19 Status: Discontinued Results Most recent to 1 2 oldest [Reference Range]: Neutrophils # 3.8 K/CMM 4.2 K/CMM [1.5-8.1 K/CMM] (01/13/19 12:35 AM) (01/12/19 12:11 AM ) Lymphocytes # 1.3 K/CMM 1.5 K/CMM [1.0-5.5 K/CMM] (01/13/19 12:35 AM) (01/12/19 12:11 AM ) Monocytes # [0.0-0.8 0.6 K/CMM 0.7 K/CMM K/CMM] (01/13/19 12:35 AM) (01/12/19 12:11 AM ) Eosinophils # 0.1 K/CMM 0.1 K/CMM [0.0-0.5 K/CMM] (01/13/19 12:35 AM) (01/12/19 12:11 AM ) eGFR 91 mL/min/1.73m2 1 78 mL/min/1.73m2 2 *NA* *NA* (01/13/19 12:35 AM) (01/12/19 12:11 AM) AGAP [10.0-20.0 10.8 mEq/L 9.4 mEq/L mEq/L] (01/13/19 12:35 AM) *LOW* (01/12/19 12: AM) Basophils [0.0-1.0 0.4 % 0.2 % %] (01/13/19 12:35 AM) (01/12/19 12:11 AM ) BUN [7-22 mg/dL] 12 mg/dL 13 mg/dL (01/13/19 12:35 AM) (01/12/19 12:11 AM) Calcium Lvl 7.7 mg/dL 8.0 mg/dL [8.5-10.5 mg/dL] *LOW* *LOW* (01/13/19 12:35 AM) (01/12/19 12:11 AM) Chloride Lvl [95-109 113 mEq/L 112 mEq/L mEq/L] *HI* *HI* (01/13/19 12:35 AM) (01/12/19 12:11 AM) CO2 [24-32 mEq/L] 24 mEq/L 25 mEq/L (01/13/19 12:35 AM) (01/12/19 12:11 AM) Creatinine Lvl 0.77 mg/dL 0.87 mg/dL [0.50-1.40 mg/dL] (01/13/19 12:35 AM) (01/12/19 12:11 AM ) Eosinophils [0.0-4.0 1.1 % 0.9 % %] (01/13/19 12:35 AM) (01/12/19 12:11 AM ) Glucose Lvl [70-99 98 mg/dL 110 mg/dL mg/dL] (01/13/1935 AM) *HI* (01/12/19 AM) Hct [36.0-48.0 %] 33.2 % 31.8 % *LOW* *LOW* (01/13/19:35 AM) (01/12/19 12:11 AM) Hgb [12.0-16.0 g/dL] 11.1 g/dL 11.0 g/dL *LOW* *LOW* (01/13/1935 AM) (01/12/19 12 AM) Potassium Lvl 3.8 mEq/L 3.4 mEq/L [3.5-5.1 mEq/L] (01/13/19 12:35 AM) *LOW* (01/12/19: AM) Lymphocytes 22.3 % 23.0 % [20.0-40.0 %] (01/13/19:35 AM) (01/12/19 12:11 AM ) MCH [27.0-31.0 pg] 32.9 pg 33.4 pg *HI* *HI* (01/13/19:35 AM) (01/12/19 12:11 AM) MCHC [32.0-36.0 33.5 g/dL 34.5 g/dL g/dL] (01/13/19:35 AM) (01/12/19 12:11 AM ) MCV [80.0-98.0 fL] 98.0 fL 96.7 fL (01/13/19:35 AM) (01/12/19 12:11 AM) Monocytes [2.0-12.0 9.7 % 10.3 % %] (01/13/19 12:35 AM) (01/12/19 12:11 AM ) MPV [7.4-10.4 fL] 8.1 fL 7.6 fL (01/13/19:35 AM) (01/12/19 12:11 AM) Sodium Lvl [135-145 144 mEq/L 143 mEq/L mEq/L] (01/13/19 12:35 AM) (01/12/19 12:11 AM ) Platelet [133-450 199 K/CMM 194 K/CMM K/CMM] (01/13/19 12:35 AM) (01/12/19 12:11 AM ) Segs [45.0-75.0 %] 66.5 % 65.6 % (01/13/19 12:35 AM) (01/12/19 12:11 AM) RBC [4.20-5.40 3.39 M/CMM 3.28 M/CMM M/CMM] *LOW* *LOW* (01/13/19 12:35 AM) (01/12/19 12:11 AM) RDW [11.5-14.5 %] 13.8 % 13.9 % (01/13/19 12:35 AM) (01/12/19 12:11 AM) WBC [3.7-10.4 K/CMM] 5.7 K/CMM 6.5 K/CMM (01/13/19 12:35 AM) (01/12/19 12:11 AM) 1Result Comment: The eGFR is calculated using the [...] from the National Kid[employer] Education Program ( NKDEP) which additionally recommends that when the eGFR is used in patients with extremes of body mass index for purposes of drug dosing, the eGFR should be mul tiplied by the estimated BMI. 2Result Comment: The eGFR is calculated using the [...] from the National Kid[employer] Education Program ( NKDEP) which additionally recommends that when the eGFR is used in patients with extremes of body mass index for purposes of drug dosing, the eGFR should be mul tiplied by the estimated BMI. Immunizations Given and Recorded Vaccine Date Status [...] No entered on: 01/11/19 Assessment and Plan Extracted from: Title: Orthopaedic Rounding note Author: Gayla Huizar [employer] Date: 01/15/19 Patient states she needs prior authoriza tion for discharge medications. I have spoken to [facility] and submitted request. Patient has been notfied of prior authorization request. Extracted from: Title: History and Physical Author: Apolinar Melendez MD Date: 01/12/19 48-year-old female with PMH of ADHD, dep ression,history of fall early e in here for electivesurgical repair of herleft calcaneal fracture. 1.Closed displaced fracture of body of left calcaneus(S92.012A) Status post ORIFleft calcaneus Postoperative Ancef for 24 hours Strict elevationLLE, nonweightbearing LLE PT, OT once cleared by Ortho 2.Acute pain(R52) s/p nerve block Multimodal pain regimen 3.Fall(W19.XXXA) Mechanical fall PT, OT 4.ADHD(F90.9) ContinueAdderall 5.Depression(F32.9) ContinueWellbutrin, Lexapro 6.Hypokalemia(E87.6) Replete and repeat 7.Normocytic anemia(D64.9) Possibly related to surgery Monitor hemoglobin lovenox based on therapy eval
--- OUTSIDE RECORDS SUMMARY | 2019-11-05 22:51 | XMS REPORT | Summary of Care ---
Author Author TOM Hernández Organization Unknown Address Unknown Phone Unavailable Care Team Providers Care Cash Reconciliation Specialist Name Role Phone HARJIT Goncalves, JAQUELIN Unavailable Unavailable MALISSA GUAMAN Unavailable Unavailable Pilar Hernández Unavailable Unavailable PRASANNA SAWYER MD Unavailable Unavailable Harjit PEARL, Jaquelin Unavailable Unavailable Functional Status Name Dates Details Functional status health issues are not documented Status: Name Dates Details Cognitive status health issues are not d ocumented Status: Problems Name Dates Details Closed displaced intra-articular fractur e of left calcaneus, initial encounter (825.0, S92.008K) Status: Active Medications Name Dates Details Acetaminophen-Codeine 300-30 MG Oral Tab let TAKE 1 TABLET EVERY 8 HOURS PRN Pain Quantity: 20 HARJIT Dale.JAQUELIN * Start : 26-Jan-2019 Active Gabapentin 300 MG Oral Capsule TAKE 1 CAPSULE EVERY 8 HOURS * Quantity: 60 Refills: 0 DEISI P.A.MALISSA * Start : 02-Feb-2019 Active Acetaminophen-Codeine 300-30 MG Oral Tablet TAKE 1 TABLET EVERY 8 HOURS PRN Pain * Quantity: 30 Refills: 0 JAQUELIN LOMBARDI M.D. * Start : 01-Jun-2019 Active Pregabalin 50 MG Oral Capsule TAKE 1 CAPSULE 3 TIMES DAILY * Quantity: 90 Refills: 0 JAQUELIN LOMBARDI M.D. * Start : 19-Oct-2019 Active traMADol HCl - 50 MG Oral Tablet TAKE 1 TABLET EVERY 8 HOURS PRN Pain * Quantity: 30 Refills: 0 HARJIT Dominique.JAQUELIN [place] * Start : 19-Oct-2019 Active Allergies and Adverse Reactions Name Dates Details Allergy history not documented Status: Procedures Procedure Dates Details Post Op Promis 29 Survey Date: 04-Nov-2019 Immunization Name Dates Details Immunizations not documented Social History Name Dates Details Tobacco smoking consumption unknown (finding) Vital Signs Date Test Result Details No Known Vitals to report Results Date Description Value Details [id number] [U] XR CALCANEUS (HEEL) 2 VWS, MIN. LEF T 21026 XR CALCANEUS (HEEL) 2 VWS, MIN. LEFT I mages acquired, not reported on this accession number. Plan of Care Name Dates Details Planned Observations Planned Goals not documented Planned Encounters Appointment; JAQUELIN LOMBARDI M.D. On: 16-Nov-2019 9:15 Interventions Provided Labs/Procedures/Imaging* Post Op Promis 29 Survey; To Be Done: 04 Nov 2019 Instructions Name Dates Details Instructions not [...] Diagnosis: Problem not documented On: 01-Jun-2019 11:30 Appointment; JAQUELIN LOMBARDI M.D. Encounter Diagnosis: Problem not documented On: 29-Jun-2019 11:30 Appointment; JAQUELIN LOMBARDI M.D. Encounter Diagnosis: Problem not documented On: 28-Sep-2019 9:30 Appointment; JAQUELIN LOMBARDI M.D. Encounter Diagnosis: Problem not documented On: 08-Oct-2019 7:30 Appointment; JAQUELIN LOMBARDI M.D. Encounter Diagnosis: Problem not documented On: 19-Oct-2019 8:00
--- OUTSIDE RECORDS SUMMARY | 2019-11-05 22:51 | XMS REPORT | Summary of Care ---
Author Author Nithin Robb, TOM FLORES Organization Unknown Address Unknown Phone Unavailable Care Team Providers Care Lei Maker Name Role Phone HARJIT Goncalves, JAQUELIN Unavailable Unavailable MALISSA GUAMAN Unavailable Unavailable PRASANNA SAWYER MD Unavailable Unavailable Harjit PEARL, Jaquelin Unavailable Unavailable Functional Status Name Dates Details Functional status health issues are not documented Status: Name Dates Details Cognitive status health issues are not d ocumented Status: Problems Name Dates Details Closed displaced intra-articular fractur e of left calcaneus, initial encounter (825.0, R22.271Y) Status: Active Medications Name Dates Details Acetaminophen-Codeine [...] LOMBARDI M.D. * Start : 19-Oct-2019 Active Allergies and Adverse Reactions Name Dates Details Allergy history not documented Status: Procedures Procedure Dates Details Procedures not documented Immunization Name Dates Details Immunizations not documented Social History Name Dates Details Tobacco smoking consumption unknown (finding) Vital Signs Date Test Result Details No Known Vitals to report Results Date Description Value Details [id number] [U] XR CALCANEUS (HEEL) 2 VWS, MIN. LEF T 93423 XR CALCANEUS (HEEL) 2 VWS, MIN. LEFT I mages acquired, not reported on this accession number. [id number] [U] XR CALCANEUS (HEEL) 2 VWS, MIN. LEF T 95209 XR CALCANEUS (HEEL) 2 VWS, MIN. LEFT Juan Carlos magemacarena acquired, not reported on this accession number. Plan of Care Name Dates Details Planned Observations Planned Goals not documented Planned Encounters Appointment; JAQUELIN LOMBARDI M.D. On: 16-Nov-2019 9:15 Interventions Provided Medication Changes* Pregabalin 50 MG Oral Capsule - Start * traMADol HCl - 50 MG Oral Tablet - Start Labs/Procedures/Imaging* [U] XR CALCANEUS (HEEL) 2 VWS, MIN. LEFT [id number]; Done: 19 Oct 2019 Instructions Name Dates Details Instructions not [...]
--- OUTSIDE RECORDS SUMMARY | 2019-11-05 22:51 | XMS REPORT | Continuity of Care Document ---
Author Author [facility] t Organization [facility] Address [address] [place] [address] Phone Unavailable Care Team Providers Care Manufacturing Mechanic Name Role Phone DO ALEX WILLS PCP JAQUELIN GALLARDO M.D. Attphys Unavailable Domo Hayes Attphys Koffi Gallardo Attphys Shagufta Henderson Attphys Unavailable Mayra Carvajal Attphys Unavailable Hernandez, Shae Attphys Unavailable Mynor Navas Attphys Unavailable ROXI, Micky FELIZ Attphys Unavailable Su-Sachnik, Jesenia Attphys Unavailable Vora, Crystal Attphys Unavailable Beto, Meredith Attphys Unavailable Drummond, Gayla Attphys Unavailable Brenda Mixon Attphys Unavailable MALISSA LIPSCOMB, P.Maryana Attphys Unavailable Juliane Carrasco Arsha Attphys Judson Marie Attphys Unavailable Ran MARS Attphys Unavailable VLADIMIR WILLS Attphys Unavailable Koffi Gallardo Admphys Domo Hayes Unavailable Payers Payer Name Policy Type Policy Number Effective Date Expiration Date S nikole [facility] Ppo [id number] 2012 00:00:00 [facility] Problems Condition Name Condition Details Condition Category Status Onset Date Resolution Date Last Treatment Date Treating Clinician Comments Source PAIN DUE TO INTERNAL ORTHOPEDIC PROSTHET PAIN DUE TO INTERNAL ORTHOPEDIC PROSTHET Active 09/29/2019 [facility] Diagnosis Active 2019-09-29 00:00:00 2019-10-08 06:46:00 Alfred Anne LT FOOT LT F OOT Active 01/11/2019 [facility] Diagnosis Active 2019-01-11 08:00:00 2019-06-01 10:20:00 Alfred Anne DISPLACED INTRAARTICULAR FRACTURE OF LEF DISPLACED INTRAARTICULAR FRACTURE OF LEF Active 01/06/2019 [facility] Diagnosis Active 2019-01-06 00:00:00 2019-01-15 15:08:00 Alfred Anne ANXIETY DISORDER, OTHER SPECIFIED Condition Active 10-29 00:00:00 2018-10-30 13:04:38 Domo Hayes [facility] ADHD, OTHER SPECIFIED Condition Active 2018-10-29 00:00:0 0 2018-10-30 13:04:38 Domo Hayes [facility] DEPRESSIVE DISORDER, OTHER SPECIFIED Condition Active 201 11-30-07 00:00:00 2018-10-30 13:04:38 Domo Hayes [facility] Mixed anxiety and depressive disorder (disorder) Mixed anxiety and depressive disorder (disorder) Active 03/24/1987 Problem 10/11/2019 [facility] Problem Active 1987-03-24 00:00:00 2019-10-11 07:34:02 Alfred Anne Closed displaced intra-articular fracture of left calc aneus, initial encounter Closed displaced intra-articular fracture of left calcaneus, initial encounter Problem Active [facility] Fall from ladder (finding) Fal l from ladder (finding) Resolved Problem 10/11/2019 L CALCANEUS FX [facility] Problem Resolved 2019-10-11 07:34:02 Elizabeth Anne Scoliosis deformity of spine (disorder) Scoliosis deformity of spine (disorder) Active Problem 10/11/2019 [facility] Problem Active 2019-10-11 07:34:02 Alfred Anne Allergies, Adverse Reactions, Alerts Allergy Name Allergy Type Status Severity Reaction(s) Onset Date Inacti ve Date Treating Clinician Comments Source No Known Medication Allergies No Known Medication Allergies Active [facility] Social History Social Habit Start Date Stop Date Quantity Comments Source tobacco use (cigarettes, cigar, chew, pipe) 2019-10-13 12:44 :38 2019-10-13 12:44:[facility] 2019-01-08 17:24:28 2019-01-08 17:24:28 [facility] Omid drug use, illicit 2018-10-29 11:10:52 2018-10-29 11:10:52 Never [facility] alcohol use 2018-10-29 11:10:52 2018-10-29 11:10:52 Currently [facility] social history reviewed E&M 2018-10-29 11:10:52 2018-10-29 11:10 :52 reviewed today [facility] social history E&M 2018-10-29 11:10:52 2018-10-29 11:10:52 Grew up in [place] - 3rd of 5 children Currently seperated - for 3 years - 3 previous times Boyfriend living with her currently 2nd marrige - first marriage - 2 years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 [employer]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 [facility] family support 2018-10-29 11:10:52 2018-10-29 11:10:52 Grew up in [place] - 3rd of 5 children [facility] home/family situation, assessment 2018-10-29 11:10:52 2018-10-29 11:10:52 Currently seperated - for 3 years - 3 previous times Boyfriend living with her currently 2nd marrige - first marriage - 2 years [facility] Sex Assigned At 1970 00:00:00 1970 00[birth year]00:00 Female [facility] Smoking Status Start Date Stop Date Source Never smoked tobacco (finding) L [facility] Medications Ordered Medication Name Filled Medication Name Start Date Stop Da te Current Medication? Ordering Clinician Indication Dosage Frequency Signature (SIG) Comments Components Source Pregabalin 50 MG Oral Capsule Pregabalin 50 MG Oral Capsule 2019 00:00:00 Yes JAQUELIN GALLARDO M.D. 1 Q0.3333D TAKE 1 CAPSULE 3 TIMES D AILY [facility] traMADol HCl - 50 MG Oral Tablet traMADol HCl - 50 MG Oral T ablet 2019-10-19 00:00:00 Yes JAQUELIN GALLARDO M.D. 1 Q8H TAKE 1 TABLET EVERY 8 HOURS PRN Pain [facility] Ketorolac 2019-10-08 14:04:00 Yes 30 mg, Route: IVP, ONCE, Dosing Weight 58.1, kg, Start date: 10/08/19 9:04:00 CDT, Stop date: 10/08/19 9:04:00 CDT [facility] Fentanyl 2019-10-08 14:04:00 No 25 microgram, Route: IVP, Q5Min, Dosing Weight 58.1, kg, PRN Pain Score 4-6, Priority: Routine, Start date: 10/08/19 9:04:00 CDT, Duration: 4 doses or times, Stop date: Limited # of times [facility] Flumazenil 2019-10-08 14:04:00 No 0.2 mg, Route: IVP, PRN, Dosing Weight 58.1, kg, PRN Benzodiazepine Reversal, Initial dose, Start date: 10/08/19 9:04:00 CDT, Duration: 30 day, Stop date: 11/07/19 9:03:00 CDT [facility] Naloxone 2019-10-08 14:04:00 No 0.4 mg, Route: IVP, Q2MIN, Dosing Weight 58.1, kg, PRN Narcotic Reversal, Start date: 10/08/19 9:04:00 CDT, Duration: 8 doses or times, Stop date: Limited # of times [facility] Ondansetron 2019-10-08 14:04:00 No 4 mg, Route: IVP, ONCE, Dosing Weight 58.1, kg, PRN Nausea & Vomiting, Start date: 10/08/19 9:04:00 CDT [facility] Lorazepam 2019-10-08 14:04:00 No 0.5 mg, Route: IVP, Q20Min, Dosing Weight 58.1, kg, PRN Anxiety, Start date: 10/08/19 9:04:00 CDT, Duration: 3 doses or times, Stop date: Limited # of times [facility] Methocarbamol 2019-10-08 14:04:00 Yes 1,000 mg, Route: IV, ONCE, Dosing Weight 58.1, kg, Start date: 10/08/19 9:04:00 CDT, Stop date: 10/08/19 9:04:00 CDT [facility] Tylenol 2019-10-08 14:04:00 Yes 1,000 mg, Route: IV, ONCE, Dosing Weight 58.1, kg, Start date: 10/08/19 9:04:00 CDT, Stop date: 10/08/19 9:04:00 CDT Alfred Anne traMADol 100 mg oral tablet 2019-10-08 13:56:00 Yes 100 mg = 1 tab, PO, Q6H, # 60 tab, 0 Refill(s) Alfred Anne hydromorphone (ISADORAS) 2019-10-08 13:47:00 No Route: IV, Drug form: INJ, ONCE, Stop date: 10/08/19 8:47:00 CDT [facility] ondansetron (ANES) 2019-10-08 13:27:00 No Route: IV, Drug form: INJ, ONCE, Stop date: 10/08/19 8:27:00 CDT Id noemi Shenann dexamethasone (ANES) 2019-10-08 13:27:00 No Route: IV, Drug form: INJ, ONCE, Stop date: 10/08/19 8:27:00 CDT [facility] ceFAZolin (ISADORAS) 2019-10-08 13:27:00 No Route: IV, Drug form: INJ, ONCE, Stop date: 10/08/19 8:27:00 CDT Id noemi Anne midazolam (ANES) 2019-10-08 13:27:00 No Route: IV, Drug form: SOLN, ONCE, Stop date: 10/08/19 8:27:00 CDT Id noemi Shenann ePHEDrine (ANES) 2019-10-08 13:27:00 No Route: IV, Drug form: INJ, ONCE, Stop date: 10/08/19 8:27:00 CDT Id noemi Shenann lidocaine (ANES) 2019-10-08 13:22:00 No Route: IV, Drug form: INJ, ONCE, Stop date: 10/08/19 8:22:00 [facility] ([facility] 2019-10-08 13:22:00 No Route: IV, Drug form: INJ, ONCE, Stop date: 10/08/19 8:22:00 CDT Id noemi Shenann succinylcholine (ANES) 2019-10-08 13:22:00 No Route: IV, Drug form: INJ, ONCE, Stop date: 10/08/19 8:22:00 CDT Alfred Anne fentaNYL (ANES) 2019-10-08 13:22:00 No Route: IV, Drug form: INJ, ONCE, Stop date: 10/08/19 8:22:00 CDT Me noemi Anne ceFAZolin 2019-10-08 03:00:00 No Notes: (Sa me as Ancef) Alfred Anne Doxycycline 2019-10-04 20:08:00 Yes PO, Q12H , 0 Refill(s) Alfred Anne Zolpidem tartrate 10 MG Oral Tablet [Ambien] 2019-10-04 20:07:00 Yes 10 mg = 1 tab, PO, Bedtime, # 14 tab, 0 Refill(s) Alfred Anne aripiprazole 10 MG Oral Tablet [Abilify] 2019-10-04 20:07:00 Yes 10 mg = 1 tab, PO, Daily, # 30 tab, 0 Refill(s) Alfred Anne ZOLOFT (SERTRALINE HCL) 50 MG TABS 2019-09-13 00:00:00 Maria Luisa Hayes Take 1/2 tab for 2 weeks, then start taking 1 tab By M outh Every Morning [facility] Acetaminophen-Codeine 300-30 MG Oral Tablet Acetaminop hen-Codeine 300-30 MG Oral Tablet 2019-06-01 00:00:00 Yes JAQUELIN GALLARDO M.D. 1 Q8H TAKE 1 TABLET EVERY 8 HOURS PRN Pain [facility] ABILIFY (ARIPIPRAZOLE) 10 MG TABS 2019-05-10 00:00:00 Raphael Hayes Take 1 tab By Mouth take at bedtime [facility] Gabapentin 300 MG Oral Capsule Gabapentin 300 MG Oral Capsul e 2019-02-02 00:00:00 Yes MALISSA Maher 1 Q8H TAKE 1 CAPSULE EVER Y 8 HOURS [facility] Acetaminophen-Codeine 300-30 MG Oral Tablet Acetaminop hen-Codeine 300-30 MG Oral Tablet 2019-01-26 00:00:00 Yes JAQUELIN GALLARDO M.D. 1 Q8H TAKE 1 TABLET EVERY 8 HOURS PRN Pain [facility] (GUANFACINE HCL) 1 MG TABS 2019-01-18 00:00:00 Yes Trip Hayes 1{Tablet} 2xD TAKE 1 TAB BY MOUTH TWICE A DAY [facility] (TOPIRAMATE) 100 MG TABS 2019-01-18 00:00:00 Yes Osei Hayes 1{Tablet} 2xD TAKE 1 TABLET BY MOUTH TWICE A DAY [facility] Acetaminophen 300 MG / Codeine Phosphate 30 MG Oral Tablet [Tylenol with Codeine #3] 2019-01-15 18:50:59 Yes 1 tab, PO, Q6H, PRN Pain Score 7-10, X 15 day, # 20 tab, 0 Refill(s) Alfred wongsera Aspirin 325 MG Enteric Coated Tablet 2019-01-15 18:39:00 Ye s 325 mg = 1 tab, PO, BID, # 38 tab, 0 Refill(s) Alfred Anne methocarbamol 500 mg oral tablet 2019-01-15 18:27:00 Yes 1,000 mg = 2 tab, PO, Q8Hnow, 0 Refill(s) Alfred Anne Acetaminophen 500 MG Oral Tablet 2019-01-15 18:27:00 Yes 1,000 mg = 2 tab, PO, Q6H, PRN Pain Score 4-6, X 10 day, # 24 tab, 0 Refill(s) Alfred Anne Aspirin 325 MG Enteric Coated Tablet 2019-01-15 18:27:00 No 325 mg = 1 tab, PO, BID, # 42 tab, 0 Refill(s) Id noemi Shenann gabapentin 300 MG Oral Capsule 2019-01-15 18:27:00 Yes 300 mg = 1 cap, PO, Q8H, # 21 cap, 0 Refill(s) Maximino wayne Anne Acetaminophen 300 MG / Codeine Phosphate 30 MG Oral Tablet [Tylenol with Codeine #3] 2019-01-15 18:27:00 No 1 tab, PO, Q6H, PRN Pain Score 7-10, X 15 day, # 60 tab, 0 Refill(s) [facility] Meera wongsera Tetrahydrocannabinol 2019-01-13 02:00:00 No Notes: (Same as: Marinol) Alfred Anne 24 HR Bupropion Hydrochloride 300 MG Extended Release Tablet [Wellbutrin] 2019-01-12 22:20:00 Yes 300 mg = 1 tab, PO, QAM, # 30 tab, 0 Refill(s) [facility] Omid methocarbamol 750 mg oral tablet 2019-01-12 22:20:00 No 750 mg = 1 tab, PO, BID, NEEDED, # 60 tab, 0 Refill(s) Alfred Anne Oxycodone Hydrochloride 5 MG Oral Tablet 2019-01-12 22:04:00 No Notes: (Same as: Roxicodone) Alfred stokes Methocarbamol 2019-01-12 22:03:00 No Notes: (Same as:Robaxin) Alfred Anne Wellbutrin XL 2019-01-12 14:00:00 No Notes: (Same as: Wellbutrin XL) "Do Not Crush" Alfred Anne Dextrose 50% Syringe 2019-01-12 07:03:00 No 12.5 gm, 25 mL, Route: IVP, Drug Form: INJ, Dosing Weight 59.091, kg, PRN, PRN Blood Glucose Results, Start date: 01/12/19 2:03:00 CDT, Duration: 30 day, Stop date: 02/11/19 1:02:00 GRAPHIC DESIGNER, 0 Alrfed Anne Glucagon 2019-01-12 07:03:00 No 1 mg, Route: IM, Drug form: PDR/INJ, PRN, Dosing Weight 59.091, kg, PRN Blood Glucose Results, Start date: 01/12/19 2:03:00 CDT, Duration: 30 day, Stop date: 02/11/19 1:02:00 GRAPHIC DESIGNER, 0 Alfred Anne Potassium Chloride 2019-01-12 06:56:00 No Notes: (Same as: K-Dur 20) "Do Not Crush" Give with food and full glass of water For patients unable to swallow tablet, dissolve in one half glass of water. Allow about 2 minutes for the tablets to disintegrate. Stir before giving to prepare slurry and administer. Please exclude Patient s with feeding tube less than 14 Yemeni (Dobhoff, J-tube etc) and pediatric and patients. Alfred Anne zolpidem 2019-01-12 03:00:00 No Notes: (Leonel e As: Shaniqua) Alfred Anne Ambien CR 2019-01-12 02:40:00 No 12.5 mg, Route: PO, Drug form: ERTAB, Bedtime, Dosing Weight 59.091, kg, PRN Sleep, Start date: 01/11/19 21:40:00 CDT, Duration: 30 day, Stop date: 02/10/19 21:39:00 GRAPHIC DESIGNER [facility] Lexapro 2019-01-12 02:00:00 No Notes: (Same as: Lexapro) [facility] Celebrex 2019-01-12 02:00:00 No Notes: NSAID. Please check indication. Not for seizure. (Same As: CeleBREX) [facility] Aspirin Enteric Coated 2019-01-11 22:00:00 No Notes: (Do Not Crush) Do not crush or chew. [facility] Tenex 2019-01-11 22:00:00 No Notes: (Same as: Tenex) Non-Formulary Drug [facility] Topamax 2019-01-11 22:00:00 No Notes: (Same As: Topamax) "Do Not Crush" [facility] Cefazolin 2019-01-11 21:00:00 No Notes: (Same As: AncPadmini foster) MEDICATION WASTE Product Size: 1000 mg Product Wasted: ___ mg [facility] gabapentin 2019-01-11 21:00:00 No Notes: (S jennifer as: Neurontin) [facility] Tylenol 2019-01-11 17:00:00 No 650 mg, Route: PO, Drug form: TAB, Q6H, Dosing Weight 59.091, kg, Start date: 01/11/19 12:00:00 CDT, Duration: 30 day, Stop date: 02/10/19 6:00:00 GRAPHIC DESIGNER [facility] [place] Acetaminophen 2019-01-11 17:00:00 No Notes: Max acetaminophen 4000 mg/day (4 gm/day). (Same as: Tylenol Extra Strength) [facility] Tramadol 2019-01-11 17:00:00 No Notes: Not to exceed 400mg/day. (Same As: Ultram) [facility] ropivacaine 2019-01-11 16:14:00 No Notes: S jennifer as: Naropin [facility] ondansetron (ANES) 2019-01-11 15:04:00 No Route: IV, Drug form: INJ, ONCE, Stop date: 01/11/19 10:04:00 CDT [facility] ketOROLAC (ANES) 2019-01-11 15:04:00 No IV, ONCE [facility] Lactated Ringers IV 1,000 mL 2019-01-11 15:01:00 No 1,000 mL, Rate: 75 ml/hr, Infuse over: 13.3 hr, Route: IV, Dosing Weight 59.091 kg, Total Volume: 1,000, Start date: 01/11/19 10:01:00 CDT, Duration: 30 day, Stop date: 02/10/19 10:00:00 GRAPHIC DESIGNER, 1.63, m2, 0 [facility] [place] Oxycodone Hydrochloride 5 MG Oral Tablet 2019-01-11 14:56:00 No Notes: (Same as: Roxicodone) [facility] divya Hydralazine 2019-01-11 14:39:00 No Notes: (Same as: Apresoline) Push over 5 minutes [facility] Hydromorphone 2019-01-11 14:39:00 No Notes: Same as Dilaudid [facility] Flumazenil 2019-01-11 14:39:00 No Notes: (S jennifer as: Romazicon) [facility] Naloxone 2019-01-11 14:39:00 No Notes: Same as Narcan [facility] glycopyrronium 2019-01-11 14:39:00 No Notes : (Same as: Robinul) [facility] Ondansetron 2019-01-11 14:39:00 No Notes: (Same as: Zofran) MEDICATION WASTE Product Size: 4 mg Product Wasted: ___ mg [facility] [place] Promethazine 2019-01-11 14:39:00 No Notes: Do not give IV push. (Same as: Phenergan) [facility] Hydromorphone 2019-01-11 14:19:00 No Notes: Same as Dilaudid [facility] Flumazenil 2019-01-11 14:19:00 No Notes: (S jennifer as: Romazicon) [facility] Naloxone 2019-01-11 14:19:00 No Notes: Same as Narcan [facility] Ondansetron 2019-01-11 14:19:00 No Notes: (Same as: Zofran) MEDICATION WASTE Product Size: 4 mg Product Wasted: ___ mg [facility] hydromorphone (ANES) 2019-01-11 14:06:00 No Route: IV, Drug form: INJ, ONCE, Stop date: 01/11/19 9:06:00 CDT [facility] midazolam ([facility]) 2019-01-11 13:46:00 No Route: IV, Drug form: SOLN, ONCE, Stop date: 01/11/19 8:46:00 CDT Id noemi Anne dexamethasone ([facility]) 2019-01-11 13:46:00 No Route: IV, Drug form: INJ, ONCE, Stop date: 01/11/19 8:46:00 CDT [facility] glycopyrrolate ([facility]) 2019-01-11 13:46:00 No Route: IV, Drug form: INJ, ONCE, Stop date: 01/11/19 8:46:00 CDT [facility] ePHEDrine ([facility]) 2019-01-11 13:36:00 No Route: IV, Drug form: INJ, ONCE, Stop date: 01/11/19 8:36:00 CDT Id noemi Anne famotidine ([facility]) 2019-01-11 13:36:00 No Route: IV, Drug form: INJ, ONCE, Stop date: 01/11/19 8:36:00 CDT Id noemi Anne lidocaine ([facility]) 2019-01-11 13:31:00 No Route: IV, Drug form: INJ, ONCE, Stop date: 01/11/19 8:31:00 CDT Id noemi Anne propofol ([facility]) 2019-01-11 13:31:00 No Route: IV, Drug form: INJ, ONCE, Stop date: 01/11/19 8:31:00 CDT Id noemi Anne rocuronium ([facility]) 2019-01-11 13:31:00 No Route: IV, Drug form: INJ, ONCE, Stop date: 01/11/19 8:31:00 CDT Id noemi Anne fentaNYL ([facility]) 2019-01-11 13:31:00 No Route: IV, Drug form: INJ, ONCE, Stop date: 01/11/19 8:31:00 [facility]AM[facility] ([facility]) 2019-01-11 13:31:00 No Route: IV, Drug form: INJ, ONCE, Stop date: 01/11/19 8:31:00 CDT Id noemi Anne ceFAZolin (ANES) 2019-01-11 13:16:00 No Route: IV, Drug form: INJ, ONCE, Stop date: 01/11/19 8:16:00 CDT Id noemi Anne Hydralazine 2019-01-11 12:38:00 No 10 mg, Route: IVP, Q20Min, Dosing Weight 59.091, kg, PRN Elevated BP, Start date: 01/11/19 7:38:00 CDT, Duration: 2 doses or times, Stop date: Limited # of times Alfred Anne Labetalol 2019-01-11 12:38:00 No 10 mg, 2 mL, Route: IVP, Drug form: INJ, Q5Min, Dosing Weight 59.091, kg, PRN Elevated BP, Start date: 01/11/19 7:38:00 CDT, Duration: 5 doses or times, Stop date: 01/12/19 0:00:00 CDT, 0 Alfred Anne Acetaminophen 2019-01-11 12:38:00 No Notes: Max acetaminophen 4000 mg/day (4 gm/day). (Same as: Tylenol Extra Strength) Alfred Anne Oxycodone Hydrochloride 5 MG Oral Tablet 2019-01-11 12:38:00 No Notes: (Same as: Roxicodone) Alfred stokes Hydromorphone 2019-01-11 12:38:00 No 0.5 mg, Route: IVP, Q5Min, Dosing Weight 59.091, kg, PRN Pain Score 7-10, Start date: 01/11/19 7:38:00 CDT, Duration: 4 doses or times, Stop date: Limited # of times Alfred Anne Fentanyl 2019-01-11 12:38:00 No Notes: (Same as: Sublimaze) Preservative free. Alfred Anne Flumazenil 2019-01-11 12:38:00 No 0.2 mg, Route: IVP, PRN, Dosing Weight 59.091, kg, PRN Benzodiazepine Reversal, Initial dose, Start date: 01/11/19 7:38:00 CDT, Duration: 30 day, Stop date: 02/10/19 6:37:00 GRAPHIC DESIGNER Alfred Anne Naloxone 2019-01-11 12:38:00 No 0.4 mg, Route: IVP, Q2MIN, Dosing Weight 59.091, kg, PRN Narcotic Reversal, Start date: 01/11/19 7:38:00 CDT, Duration: 8 doses or times, Stop date: Limited # of times Alfred Anne Diphenhydramine 2019-01-11 12:38:00 No Notes: (Same as: Benadryl) Alfred Anne Ondansetron 2019-01-11 12:38:00 No 4 mg, Route: IVP, ONCE, Dosing Weight 59.091, kg, PRN Nausea & Vomiting, Start date: 01/11/19 7:38:00 CDT [facility] Promethazine 2019-01-11 12:38:00 No Notes: Do not give IV push. (Same as: Phenergan) Alfred Anne Lactated Ringers Injection IV (ANES) 1000 mL 2019-01-11 12:35:00 No Route: IV, Total Volume: 1,000, Start date: 01/11/19 7:35:00 CDT, Stop date: 01/11/19 8:35:00 CDT Alfred Anne ceFAZolin 2019-01-11 04:00:00 No Notes: (Sa me as Ancef) [facility] Escitalopram 20 MG Oral Tablet [Lexapro] 2019-01-08 17:05:00 Yes 40 mg = 2 tab, PO, Bedtime, # 30 tab, 0 Refill(s) [facility] Guanfacine 1 MG Oral Tablet [Tenex] 2019-01-08 17:05:00 Yes 1 mg = 1 tab, PO, BID, # 30 tab, 0 Refill(s) [facility] orial Omid topiramate 100 MG Oral Tablet [Topamax] 2019-01-08 17:04:00 Yes 100 mg = 1 tab, PO, BID, # 30 tab, 0 Refill(s) [facility] Zolpidem tartrate 12.5 MG Extended Release Tablet [Ambien] 2019-01-08 17:03:00 Yes 12.5 mg = 1 tab, PO, Bedtime, P RN for sleep, 0 Refill(s) [facility] Amphetamine aspartate 5 MG / Amphetamine Sulfate 5 MG / Dextroamphetamine saccharate 5 MG / Dextroamphetamine Sulfate 5 MG Oral Tablet [Adderall] 2019-01-08 17:03:00 Yes 20 mg = 1 ta b, PO, BID, # 60 tab, 0 Refill(s) Alfred Anne 24 HR Bupropion Hydrochloride 300 MG Extended Release Tablet [Wellbutrin] 2019-01-08 17:03:00 No 300 mg = 1 tab, PO, Daily, # 30 tab, 0 Refill(s) Alfred Anne AMBIEN (ZOLPIDEM TARTRATE) 10 MG TABS 2018-10-29 00:00:00 Yes Domo Hayes Take 1 tab By Mouth take at bedt rosina Prescription monitoring program checked on all controlled medications prescribed. [facility] WELLBUTRIN XL (BUPROPION HCL) 300 MG [id number] 2018-10-29 00:00:00 Yes Domo Hayes 1{Tablet} 1xD Take 1 tab By Mouth Every Morning [facility] LEXAPRO (ESCITALOPRAM OXALATE) 20 MG TABS 2018-10-29 00:00 :00 Yes Domo Hayes Take 2 tabs By Mouth take at bedtime [facility] ADDERALL (AMPHETAMINE-DEXTROAMPHETAMINE) 20 MG TABS 10-29 00:00:00 Yes Domo Hayes 1{Tablet} 2xD Take 1 tab By Mouth Twice a Day Prescription monitoring program checked on all controlled medications prescribed. [facility] Amphet Asp/Amphet/D-Amphet (Adderall 20 Mg Tablet) 20 Mg TABLET Amphet Asp/Amphet/D-Amphet (Adderall 20 Mg Tablet) 20 Mg TABLET Yes 20 [facility] Bupropion Hcl (Wellbutrin Sr) 150 Mg TABLET.ER Bupropi on Hcl (Wellbutrin Sr) 150 Mg TABLET.ER Yes 300 Daily [facility] Clindamycin Hcl Clindamycin Hcl Yes Daily [facility] Escitalopram Oxalate (Lexapro) 10 Mg TABLET Escitalopr am Oxalate (Lexapro) 10 Mg TABLET Yes [address] [facility] Quetiapine Fumarate (Seroquel) 100 Mg TABLET Quetiapin e Fumarate (Seroquel) 100 Mg TABLET Yes 100 Daily [facility] Sulfamethoxazole/Trimethoprim (Bactrim Ds Tablet) 1 Ea ch TABLET Sulfamethoxazole/Trimethoprim (Bactrim Ds Tablet) 1 Each TABLET Yes 1 [facility] Tenex Tenex Yes 1 Twice A Day [facility] Topiramate (Topamax) 25 Mg TABLET Topiramate (Topamax) 25 Mg TABLET Yes 100 Twice A Day [facility] Zolpidem Tartrate (Ambien) 10 Mg TABLET Zolpidem Tartrate (A mbien) 10 Mg TABLET Yes 10 Bedtime [facility] Calcium Calcium 2019-06-17 00:00:00 No Twice A D ay [facility] Multivitamin (Multi-Vitamin Daily) 1 Each TABLET Multi vitamin (Multi-Vitamin Daily) 1 Each TABLET 2019-06-17 00:00:00 No Andria ly [facility] Tenex Tenex 2019-06-17 00:00:00 No 1 Twice A Day [facility] Vitamin B12 Vitamin B12 2019-06-17 00:00:00 No D aily [facility] Vitamin C Vitamin C 2019-06-17 00:00:00 No Twice A Day [facility] Vitamin D Vitamin D 2019-06-17 00:00:00 No Twice A Day [facility] Vitamin E Vitamin E 2019-06-17 00:00:00 No Daily [facility] Risperidone (Risperdal) 1 Mg TABLET Risperidone (Risperdal) 1 Mg TABLET 2019-02-11 00:00:00 No 1 Daily [facility] Vital Signs Vital Name Observation Time Observation Value Comments Source Systolic (mm Hg) 2019-10-08 16:17:00 Maximino Anne Diastolic (mm Hg) 2019-10-08 16:17:00 Mem orial Omid Respitory Rate 2019-10-08 15:19:00 Cristian al Omid Heart Rate 2019-10-08 15:19:00 [facility] Systolic (mm Hg) 2019-10-08 15:19:00 Maximino Shenann Diastolic (mm Hg) 2019-10-08 15:19:00 Mem orial [place] Respitory Rate 2019-10-08 15:00:00 Cristian lemus Omid Systolic (mm Hg) 2019-10-08 15:00:00 Maximino black [place] Diastolic (mm Hg) 2019-10-08 15:00:00 Elizabeth orial Omid Respitory Rate 2019-10-08 14:53:00 Cristian Acevesann Height 2019-10-08 12:13:00 157.48 cm [facility] Omid Weight 2019-10-08 12:13:00 Alfred [facility] BMI Calculated 2019-10-08 12:13:00 Cristian lemus Omid Heart Rate 2019-10-08 12:13:00 [facility] Omid Height 2019-10-04 20:10:00 157.48 cm [facility] Weight 2019-10-04 20:10:00 [facility] Omid BMI Calculated 2019-10-04 20:10:00 Cristian Rodriguez Body Temperature 2019-09-20 12:49:00 98.8 [degF] [facility] Weight 2019-09-20 09:51:00 160 [lb_av] [facility] BMI (Body Mass Index) 2019-09-20 09:51:00 28.3 kg/m2 [facility] blood pressure, diastolic 2019-05-10 12:06:28 78 mm[Hg] [facility] blood pressure, systolic 2019-05-10 12:06:28 141 mm[Hg] [facility] pulse rate 2019-05-10 12:06:28 75 /min [facility] [employer] weight E&M 2019-05-10 12:06:28 126 [lb_av] [facility] weight in kilograms E&M 2019-05-10 12:06:28 57.27 kg [facility] height in centimeters E&M 2019-05-10 12:06:28 156.21 cm [facility] blood pressure, diastolic 2019-03-10 10:12:57 77 mm[Hg] [facility] blood pressure, systolic 2019-03-10 10:12:57 127 mm[Hg] [facility] pulse rate 2019-03-10 10:12:57 71 /min [facility] [employer] weight E&M 2019-03-10 10:12:57 130 [lb_av] [facility] weight in kilograms E&M 2019-03-10 10:12:57 59.09 kg [facility] height in centimeters E&M 2019-03-10 10:12:57 156.21 cm [facility] blood pressure, diastolic 2019-02-02 13:13:57 77 mm[Hg] [facility] blood pressure, systolic 2019-02-02 13:13:57 128 mm[Hg] [facility] pulse rate 2019-02-02 13:13:57 80 /min [facility] weight E&M 2019-02-02 13:13:57 201.25 [lb_av] [facility] weight in kilograms E&M 2019-02-02 13:13:57 91.48 kg [facility] height in centimeters E&M 2019-02-02 13:13:57 156.21 cm [facility] Temperature Oral (F) 2019-01-15 22:00:00 98.0 F [facility] Heart Rate 2019-01-15 22:00:00 [facility] Systolic (mm Hg) 2019-01-15 22:00:00 Maximino rial [place] Diastolic (mm Hg) 2019-01-15 22:00:00 Mem [facility] Temperature Oral (F) 2019-01-15 17:00:00 98.0 F [facility] Heart Rate 2019-01-15 17:00:00 [facility] Systolic (mm Hg) 2019-01-15 17:00:00 Maximino rial Omid Diastolic (mm Hg) 2019-01-15 17:00:00 Mem [facility] Temperature Oral (F) 2019-01-15 12:30:00 97.6 F [facility] Heart Rate 2019-01-15 12:30:00 [facility] Systolic (mm Hg) 2019-01-15 12:30:00 Maximino rial Omid Diastolic (mm Hg) 2019-01-15 12:30:00 Mem o[facility] [place] Respitory Rate 2019-01-15 09:00:00 Memori al Omid Respitory Rate 2019-01-15 04:51:00 Memori al [place] Respitory Rate 2019-01-15 01:07:00 Memori al [place] Height 2019-01-11 11:48:00 157.48 cm Alfred Anne Weight 2019-01-11 11:48:00 Alfred Anne BMI Calculated 2019-01-11 11:48:00 Cristian Rodriguez Height 2019-01-08 17:07:00 157.48 cm [facility] Weight 2019-01-08 17:07:00 Alfred Anne BMI Calculated 2019-01-08 17:07:00 Cristian Rodriguez blood pressure, diastolic 2018-12-14 13:00:59 81 mm[Hg] [facility] blood pressure, systolic 2018-12-14 13:00:59 130 mm[Hg] [facility] 2018-12-14 13:00:59 79 /min [facility] weight E&M 2018-12-14 13:00:59 132.38 [lb_av] [facility] weight in kilograms E&M 2018-12-14 13:00:59 60.17 kg [facility] height in centimeters E&M 2018-12-14 13:00:59 156.21 cm [facility] blood pressure, diastolic 2018-10-29 11:10:52 76 mm[Hg] [facility] blood pressure, systolic 2018-10-29 11:10:52 127 mm[Hg] [facility] pulse rate 2018-10-29 11:10:52 74 /min [facility] weight E&M 2018-10-29 11:10:52 132.13 [lb_av] [facility] weight in kilograms E&M 2018-10-29 11:10:52 60.06 kg [facility] height E&M 2018-10-29 11:10:52 61.5 [in_i] [facility] [facility] Procedures Procedure Date / Time Performed Performing Clinician Sourc e Post Op Promis 29 Survey 2019-11-04 00:00:00 [facility] Computed tomography of brain without radiopaque contrast 2019-08 00:00:00 [facility] [U] XR CALCANEUS (HEEL) 2 VWS, MIN. LEFT [id number] 2019-06-18 00:00 :00 [facility] [U] XRAY ANKLE MIN 3 VWS LEFT [id number] 2019-06-18 00:00:00 [facility] DRAINAGE OF SKIN ABSCESS 2019-06-18 00:00:00 [facility] [U] XR CALCANEUS (HEEL) 2 VWS, MIN. LEFT [id number] 2019-06-01 00:00 :00 [facility] [U] XRAY ANKLE MIN 3 VWS LEFT [id number] 2019-06-01 00:00:00 [facility] [U] XR CALCANEUS (HEEL) 2 VWS, MIN. LEFT [id number] 2019-04-30 00:00 :00 [facility] [U] XR CALCANEUS (HEEL) 2 VWS, MIN. LEFT [id number] 2019-04-02 00:00 :00 [facility] [U] XR CALCANEUS (HEEL) 2 VWS, MIN. LEFT [id number] 2019-02-23 00:00 :00 [facility] REPAIR BLADDER DEFECT 2019-02-11 00:00:00 [facility] [U] XR CALCANEUS (HEEL) 2 VWS, MIN. LEFT [id number] 2019-01-20 00:00 :00 [facility] Diagnostic evaluation with medical - [id number] 2018-10-29 12:10:54 B Domo lgass [facility] Cholecystectomy 2016-03-24 00:00:00 [facility] Her yanez Operation<sup>1</sup> 2016-03-24 00:00:00 Elizabethlj lemus Omid Gastric bypass 2002-03-24 00:00:00 [facility] Her yanez Tubal ligation 2001-03-24 00:00:00 [facility] yanez Discectomy 1987-03-24 00:00:00 [facility] Her yanez Appendectomy 1979-03-24 00:00:00 [facility] Her yanez Plan of Care Planned Activity Planned Date Details Comments Source Future Appointment 2019-11-16 09:15:00 Ivanna HAMMER, [facility] Instructions Urinary Tract Infection - Women [facility] Encounters Start Date/Time End Date/Time Encounter Type Admission Type [facility] Care Department Encounter ID Source 2019-10-19 08:00:00 2019-10-19 08:00:00 Appointment; JAQUELIN GALLARDO M. D. MUNZ, JOHN, M.D. [facility] Orthopedics Trauma Clinic [facility] [id number] [facility] 2019-10-13 00:00:00 2019-10-13 00:00:00 Office Visit Dagoberto Hayes [facility] Encounter/[id number] [facility] 2019-10-08 06:46:00 2019-10-08 23:59:00 Outpatient Elijah Gallardo [facility] [id number] 2019-10-08 06:46:00 2019-10-08 23:59:00 Outpatient Elijah Gallardo [facility] [id number] 2019-10-08 07:30:00 2019-10-08 07:30:00 Appointment; JAQUELIN GALLARDO M. D. MUNZ, JOHN, M.D. [facility] [id number] [facility] 2019-10-08 06:46:00 2019-10-08 06:46:00 Outpatient [facility] [id number] [facility] 2019-09-29 00:00:00 2019-09-29 00:00:00 Office Visit B Domo glass Monserrat Romero, Jose E [facility] Encounter/[id number] [facility] 2019-09-28 09:30:00 2019-09-28 09:30:00 Appointment; JAQUELIN GALLARDO M. D. MUNZ, JOHN, M.D. [facility] UTP [id number] [facility] 2019-09-22 00:00:00 2019-09-22 00:00:00 Office Visit B Domo glass Zulma Campbell, Mary N Romero, Jose E [facility] Encounter/[id number] Critical access hospital 2019-09-20 11:35:00 2019-09-20 13:39:00 Departed Emergency Room TRAY DIANE [facility] [id number] [facility] 2019-09-16 00:00:00 2019-09-16 00:00:00 Office Visit B Domo glass Maria [facility] Encounter/[id number] [facility] 2019-09-13 00:00:00 2019-09-13 00:00:00 Office Visit Dagoberto Hayes aeran [facility] Encounter/[id number] [facility] 2019-09-03 00:00:00 2019-09-03 00:00:00 Office Visit Domo Hutchinson Wendy [id number] [facility] 2019-08-31 00:00:00 2019-08-31 00:00:00 Office Visit JarekaubreyDagoberto aeran [facility] Encounter/[id number] [facility] 2019-08-29 00:00:00 2019-08-29 00:00:00 Office Visit FreddyDagoberto aeran [facility] Encounter/[id number] [facility] 2019-08-17 00:00:00 2019-08-17 00:00:00 Office Visit Domo Hutchinson, Sherie Alan [facility] Encounter/[id number] [facility] 2019-08-17 00:00:00 2019-08-17 00:00:00 Office Visit JarekaubreyDagoberto aeran [facility] Encounter/[id number] [facility] 2019-08-17 00:00:00 2019-08-17 00:00:00 Office Visit FreddyDagoberto julio [facility] Encounter/[id number] [facility] 2019-08-17 00:00:00 2019-08-17 00:00:00 Office Visit Dagoberto Hayes [facility] Encounter/[id number] [facility] 2019-08-13 00:00:00 2019-08-13 00:00:00 Office Visit Dagoberto Hayes [facility] Encounter/[id number] [facility] 2019-08-11 00:00:00 2019-08-11 00:00:00 Office Visit Domo Hutchinson Monserrat [facility] Encounter/[id number] [facility] 2019-07-23 13:55:00 2019-07-23 13:55:00 Registered Clinic [facility] [id number] [facility] 2019-07-13 00:00:00 2019-07-13 00:00:00 Office Visit B Domo glass Monserrat [facility] Encounter/[id number] [facility] 2019-07-08 00:00:00 2019-07-08 00:00:00 Office Visit Dagoberto Hayes [facility] Encounter/[id number] [facility] 2019-07-01 00:00:00 2019-07-01 00:00:00 Office Visit Jake glass Gayla Sweet [facility] Encounter/[id number] [facility] 2019-06-01 10:18:00 2019-06-30 23:59:00 Outpatient Melvin Gallardo [id number] 2019-06-30 00:00:00 2019-06-30 00:00:00 Office Visit Dagoberto Hayes [facility] Encounter/[id number] [facility] 2019-06-30 00:00:00 2019-06-30 00:00:00 Office Visit Dagoberto Hayes [facility] Encounter/[id number] [facility] 2019-06-29 11:30:00 2019-06-29 11:30:00 Appointment; JAQUELIN GALLARDO M. D. MUNZ, JOHN, M.D. [facility] Orthopedics Trauma Clinic [facility] [id number] [facility] 2019-06-18 10:18:00 2019-06-18 10:18:00 Registered Surgical Day Care [facility] [id number] [facility] 2019-06-04 00:00:00 2019-06-04 00:00:00 Office Visit Brenda Fields Nancy [facility] Encounter/[id number] [facility] 2019-06-01 11:30:00 2019-06-01 11:30:00 Appointment; JAQUELIN GALLARDO M. D. MUNZ, JOHN, M.D. [facility] Orthopedics Trauma [facility] [id number] [facility] 2019-04-30 08:16:00 2019-05-29 23:59:00 Outpatient Melvin Gallardo [id number] 2019-05-10 00:00:00 2019-05-10 00:00:00 Office Visit Piper Pérez [facility] Encounter/[id number] [facility] 2019-05-10 00:00:00 2019-05-10 00:00:00 Office Visit Dagoberto Hayes [facility] Encounter/[id number] [facility] 2019-05-10 00:00:00 2019-05-10 00:00:00 Office Visit Dagoberto Hayes [facility] Encounter/[id number] [facility] 2019-05-10 00:00:00 2019-05-10 00:00:00 Office Visit Domo Hutchinson Nancy [facility] Encounter/[id number] Critical access hospital 2019-05-04 10:00:00 2019-05-04 10:00:00 Appointment; JAQUELIN GALLARDO M. D. MUNZ, JOHN, M.D. [facility] Orthopedics Trauma [facility] [id number] [facility] 2019-04-25 00:00:00 2019-04-25 00:00:00 Office Visit Dagoberto Hayes [facility] Encounter/[id number] [facility] 2019-04-13 08:30:00 2019-04-13 08:30:00 Appointment; JAQUELIN GALLARDO M. D. MUNZ, JOHN, M.D. [facility] Orthopedics Trauma [facility] [id number] [facility] 2019-03-10 00:00:00 2019-03-10 00:00:00 Office Visit B Domo glass Wendy [facility] Encounter/[id number] [facility] 2019-03-02 09:15:00 2019-03-02 09:15:00 Appointment; JAQUELIN GALLARDO M. D. MUNZ, JOHN, M.D. [facility] Orthopedics Trauma [facility] [id number] [facility] 2019-02-11 08:01:00 2019-02-11 08:01:00 Registered Surgical Day Care [facility] [id number] [facility] 2019-02-02 08:30:00 2019-02-02 08:30:00 Appointment; MALISSA LIPSCOMB P.A. KELLY, JEANA, P.A. [facility] Orthopedic Trauma [facility] [id number] [facility] 2019-02-02 00:00:00 2019-02-02 00:00:00 Office Visit JarekaubreyDagoberto julio [facility] Encounter/[id number] [facility] 2019-02-02 00:00:00 2019-02-02 00:00:00 Office Visit B Domo glass Nancy [facility] Encounter/[id number] [facility] 2019-01-26 08:30:00 2019-01-26 08:30:00 Appointment; JAQUELIN GALLARDO M. D. MUNZ, JOHN, M.D. [facility] Orthopedics Trauma [facility] [id number] [facility] 2019-01-11 17:44:00 2019-01-15 17:17:00 Outpatient Mirlande Adams [facility] [id number] 2019-01-11 07:30:00 2019-01-11 07:30:00 Appointment; JAQUELIN GALLARDO M. D. MUNZ, JOHN, M.D. [facility] [id number] [facility] 2019-01-05 07:30:00 2019-01-05 07:30:00 Appointment; JAQUELIN GALLARDO M. D. MUNZ, JOHN, M.D. [facility] Orthopedics Trauma [facility] [id number] [facility] 2018-12-14 00:00:2018-12-14 00:00:00 Office Visit JarekaubreyDagoberto aeran [facility] Encounter/[id number] [facility] 2018-12-14 00:00:00 2018-12-14 00:00:00 Office Visit Jarekaubrey Dagoberto julio [facility] Encounter/[id number] [facility] 2018-12-14 00:00:00 2018-12-14 00:00:00 Office Visit Freddy Dagoberto kim [facility] Encounter/[id number] [facility] 2018-12-14 00:00:00 2018-12-14 00:00:00 Office Visit Jarekaubrey Dagoberto kim [facility] Encounter/[id number] [facility] 2018-12-14 00:00:00 2018-12-14 00:00:00 Office Visit Domo Hutchinson Nancy [facility] Encounter/[id number] Critical access hospital 2018-12-02 00:00:00 2018-12-02 00:00:00 Office Visit Domo Hutchinson Nancy Vasquez, Ezequiel [facility] Encounter/[id number] [facility] 2018-11-13 00:00:00 2018-11-13 00:00:00 Office Visit Dagoberto Hayes [facility] Encounter/[id number] [facility] 2018-10-29 00:00:00 2018-10-29 00:00:00 Office Visit Dagoberto Hayes [facility] Encounter/[id number] [facility] 2018-10-29 00:00:00 2018-10-29 00:00:00 Office Visit Dagoberto Hayes [facility] Encounter/[id number] [facility] 2018-10-29 00:00:00 2018-10-29 00:00:00 Office Visit Dagoberto Hayes [facility] Encounter/[id number] [facility] 2018-10-29 00:00:00 2018-10-29 00:00:00 Office Visit Domo Hutchinson Nancy [facility] Encounter/[id number] Critical access hospital 2018-08-05 00:00:00 2018-08-05 00:00:00 Office Visit Mechelle Henderson [facility] Encounter/[id number] [facility] Results Test Description Test Time Test Comments Results Result Comments Source [U] XR CALCANEUS (HEEL) 2 VWS, MIN. LEFT [id number] 2019-10-19 08:33: 00 Images acquired, not reported on this accession number. [facility] IMMUNOLOGY 2019-10-05 15:08:00 Not Detected (10/05/19 10:08 AM) [facility] [U] XR CALCANEUS (HEEL) 2 VWS, MIN. LEFT [id number] 2019-09-28 09:56: 00 Images acquired, not reported on this accession number. [facility] CT BRAIN WO 2019-09-20 10:47:00 [place] [address] Patient Name: TOM CHO MR #: [id number] : 1970 Age/Sex: 49/F Req #: [id number] Adm Physician: Ordered by: TRAY DIANE MD Report #: [id number] Location: ER Room/Bed: Procedure: [id number] CT/CT BRAIN WO Exam Date: 09/20/19 Exam Time: 1015 REPORT STATUS: Signed CT BRAIN WO HISTORY: Altered mental status COMPARISON: Report from MRI of the brain dated 05/26/2007 TECHNIQUE: Noncontrast axial scans were obtained from skull base to the vertex. Coronal and sagittal reconstructions obtained from the axial data. One or more of the following dose reduction techniques were used: Automated exposure control, adjustment of the mA and/or kV according to patient size, and/or utilization of iterative reconstruction technique. DISCUSSION: Scalp/Skull: Unremarkable. Brain sulci: Mildly prominent, especially along the frontal lobes. Ventricles: Mild compensatory dilatation. Extra-axial spaces: No masses or fluid collections. Parenchyma: Small hypodensities in the bilateral putamen, left greater than right, may be old lacunar infarcts or prominent perivascular spaces. Otherwise, no mass, hemorrhage, or large vascular territory acute infarct. Dural sinuses: No abnormal densities. Sellar/Suprasellar region: Intact. Skull base: Intact. Incidental findings: None. IMPRESSION: 1. No acute intracranial abnormalities. 2. Mild generalized cerebral volume loss, slightly accentuated in the frontal lobes. 3. Small hypodensities in the bilateral putamen, left greater than right, may be old lacunar infarcts or prominent perivascular spaces. Signed by: Dr. Ger Jarrell M.D. on 09/20/2019 10:54 AM Dictated By: GER JARRELL MD 105 Transcribed By: JENARO on 09/20/19 1054 COPY TO: TRAY DIANE MD Blood leukocytes automated count (number/volume) 2019-09-20 10:03:00 Test Item White Blood Count (test code = 6690-2) 4.70 4.8-10.8 [facility] erythrocytes automated count (number/volume)2019-09-20 10:03:00* Test Item Value Reference Range Interpretation Comments Red Blood Count (test code = 789-8) 4.39 3.6-5.1 [facility] measurement (moles/volume)2019-09-20 10:03:00* Test Item Value Reference Range Interpretation Comments Hemoglobin (test code = 61663-7) 13.6 12.0-16.0 [facility] hematocrit (volume fraction)2019-09-20 10:03:00* Test Item Value Reference Range Interpretation Comments Hematocrit (test code = 4544-3) 41.4 34.2-44.1 [facility] erythrocyte mean corpuscular dotmln4902-35-87 10:03:00* Test Item Value Reference Range Interpretation Comments Mean Corpuscular Volume (test code = 787-2) 94.3 81-99 [facility] mean corpuscular hemoglobin (mass per erythrocyte)2019-09-20 10:03:00* Test Item Value Reference Range Interpretation Comments Mean Corpuscular Hemoglobin (test code = 785-6) 31.0 28-32 [facility] Center[facility] erythrocyte mean corpuscular hemoglobin concentration measurement (mass/volume)2019-09-20 10:03:00* Test Item Value Reference Range Interpretation Comments Mean Corpuscular Hemoglobin Concent (test code = 786-4) 32.9 31-35 [facility] CenterRDW RqtDt-Wjg7749-20-29 10:03:00* Test Item Value Reference Range Interpretation Comments Red Cell Distribution Width (test code = 03691-2) 12.7 11.7 -14.4 [facility] Center[facility] platelet count (count/volume)2019-09-20 10:03:00* Test Item Value Reference Range Interpretation Comments Platelet Count (test code = 777-3) 186 140-360 [facility] Center[facility] blood segmented neutrophil count as percentage of total ulzegkgmhb9817-51-30 10:03:00* Test Item Value Reference Range Interpretation Comments Neutrophils (%) (Auto) (test code = 66438-9) 58.8 38.7-80.0 [facility] Center[facility] lymphocyte count as percentage ot total hzmdusvnos1808-50-67 10:03:00* Test Item Value Reference Range Interpretation Comments Lymphocytes (%) (Auto) (test code = 736-9) 30.2 18.0-39.1 [facility] Center[facility] monocyte count as percentage of total jwuzshstma7759-04-56 10:03:00* Test Item Value Reference Range Interpretation Comments Monocytes (%) (Auto) (test code = 5905-5) 9.8 4.4-11.3 [facility] Center[facility] blood eosinophil count as percentage of total mugxwdfgnb6554-63-49 10:03:00* Test Item Value Reference Range Interpretation Comments Eosinophils (%) (Auto) (test code = 713-8) 0.6 0.0-6.0 [facility] Center[facility] basophil count as percentage of total ruaaioijfr3952-21-78 10:03:00* Test Item Value Reference Range Interpretation Comments Basophils (%) (Auto) (test code = 706-2) 0.4 0.0-1.0 [facility] CenterFluoroscopic procedure less than one hour elxacyqo5979-96-96 10:03:00* Test Item Value Reference Range Interpretation Comments IM GRANULOCYTES % (test code = IM GRANULOCYTES %) 0.2 0.0- 1.0 [facility] Center[facility] neutrophil count 2019-09-20 10:03:00* Test Item Value Reference Range Interpretation Comments Neutrophils # (Auto) (test code = 751-8) 2.8 2.1-6.9 [facility] lymphocytes count (number/volume) 2019-09-20 10:03:00* Test Item Value Reference Range Interpretation Comments Lymphocytes # (Auto) (test code = 68177-7) 1.4 1.0-3.2 [facility] monocytes automated count (number/volume)2019-09-20 10:03:00* Test Item Value Reference Range Interpretation Comments Monocytes # (Auto) (test code = 742-7) 0.5 0.2-0.8 [facility] CenterAutom[facility] blood eosinophil count 2019-09-20 10:03:00* Test Item Value Reference Range Interpretation Comments Eosinophils # (Auto) (test code = 711-2) 0.0 0.0-0.4 [facility] CenterAutom[facility] blood basophil count (count/volume)2019-09-20 10:03:00* Test Item Value Reference Range Interpretation Comments Basophils # (Auto) (test code = 704-7) 0.0 0.0-0.1 [facility] CenterFluoroscopic procedure less than one hour jhwchvwe0172-21-05 10:03:00* Test Item Value Reference Range Interpretation Comments Absolute Immature Granulocyte (auto (bobby t code = Absolute Immature Granulocyte (auto) 0.01 0-0.1 [facility] CenterProthrombin time (PT) in platelet poor plasma by coagulation eqivy5985-20-97 10:03:00* Test Item Value Reference Range Interpretation Comments Prothrombin Time (test code = 5902-2) 13.2 11.9-14.5 [facility] CenterINR in Platelet poor plasma by Coagulation pajsl8387-82-67 10:03:00* Test Item Value Reference Range Interpretation Comments Prothromb Time International Ratio (test code = 6301-6) 0.95 Oral Anticoagulant Therapy INR Values:1. Low Intensity Therapy 1.5 - 2.02 . Moderate Intensity Therapy 2.0 - 3.03. High Intensity Therapy(1) 2.5 - 3. 54. High Intensity Therapy(2) 3.0 - 4.05. Panic Value INR > 5.0 [facility] CenterActivated partial thromboplastin time (aPTT) in platelet poor plasma by coagulation rthyl4030-90-32 10:03:00* Test Item Value Reference Range Interpretation Comments Activated Partial Thromboplast Time (test code = 23510-7) 25.7 23.8-35.5 [facility] plasma sodium measurement (moles/volume)2019-09-20 10:03:00* Test Item Value Reference Range Interpretation Comments Sodium Level (test code = 2951-2) 137 136-145 [facility] or plasma potassium measurement (moles/volume)2019-09-20 10:03:00* Test Item Value Reference Range Interpretation Comments Potassium Level (test code = 2823-3) 3.5 3.5-5.1 [facility] or plasma chloride measurement (moles/volume)2019-09-20 10:03:00* Test Item Value Reference Range Interpretation Comments Chloride Level (test code = 2075-0) 106 98-107 [facility] Lake[facility]um or plasma carbon dioxide, total measurement (moles/volume)2019-09-20 10:03:00* Test Item Value Reference Range Interpretation Comments Carbon Dioxide Level (test code = 2028-9) 19 22-29 [facility] Lake[facility]um or plasma anion nqj9226-07-60 10:03:00* Test Item Value Reference Range Interpretation Comments Anion Gap (test code = 79699-5) 15.5 8-16 [facility] or plasma urea nitrogen measurement (mass/volume)2019-09-20 10:03:00* Test Item Value Reference Range Interpretation Comments Blood Urea Nitrogen (test code = 3094-0) 13 7-26 [facility] or plasma creatinine measurement (mass/volume)2019-09-20 10:03:00* Test Item Value Reference Range Interpretation Comments Creatinine (test code = 2160-0) 0.95 0.57-1.11 [facility] or plasma urea nitrogen/creatinine mass vekwg3631-52-93 10:03:00* Test Item Value Reference Range Interpretation Comments BUN/Creatinine Ratio (test code = 3097-3) 14 6-25 [facility] CenterEstimated glomerular filtration rate (GFR) lbimvynasyjiw0260-76-96 10:03:00* Test Item Value Reference Range Interpretation Comments Estimat Glomerular Filtration Rate (test code = 632745942) > 60 >60 Ranges were taken from the National Kidney Disease Education Program and the [facility] literature.Reference ranges:60 or greater: Vyjemy65-69 ( for 3 consecutive months): Chronic kidney disease 15 or less: Kidney failureBig Bend Regional Medical CenterGlucose fzmlphdcshd3234-39-78 10:03:00* Test Item Value Reference Range Interpretation Comments Glucose Level (test code = PCS6048) 109 74-118 [facility] or plasma calcium measurement (mass/volume)2019-09-20 10:03:00* Test Item Value Reference Range Interpretation Comments Calcium Level (test code = 11013-9) 8.8 8.4-10.2 [facility] or plasma total bilirubin measurement (mass/volume)2019-09-20 10:03:00* Test Item Value Reference Range Interpretation Comments Total Bilirubin (test code = 1975-2) 0.4 0.2-1.2 [facility] CenterFluoroscopic procedure less than one hour ydrvhjxk6179-58-76 10:03:00* Test Item Value Reference Range Interpretation Comments Aspartate Amino Transf (AST/SGOT) (test code = Aspartate Amino Transf (AST/SGOT)) 21 5-34 [facility] Lakeerum or plasma alanine aminotransferase measurement (enzymatic activity/volume)2019-09-20 10:03:00* Test Item Value Reference Range Interpretation Comments Alanine Aminotransferase (ALT/SGPT) (test code = 1742-6) 35 0-55 [facility] or plasma protein measurement (mass/volume)2019-09-20 10:03:00* Test Item Value Reference Range Interpretation Comments Total Protein (test code = 2885-2) 6.7 6.5-8.1 [facility] Lake[facility] or plasma albumin measurement (mass/volume)2019-09-20 10:03:00* Test Item Value Reference Range Interpretation Comments Albumin (test code = 1751-7) 4.0 3.5-5.0 [facility] CenterPlasma globulin measurement (mass/volume) 2019-09-20 10:03:00* Test Item Value Reference Range Interpretation Comments Globulin (test code = 98904-1) 2.7 2.3-3.5 [facility] or plasma albumin/globulin mass kkzkb8747-21-39 10:03:00* Test Item Value Reference Range Interpretation Comments Albumin/Globulin Ratio (test code = 1759-0) 1.5 0.8-2.0 [facility] or plasma alkaline phosphatase measurement (enzymatic activity/volume)2019-09-20 10:03:00* Test Item Value Reference Range Interpretation Comments Alkaline Phosphatase (test code = 6768-6) 57 40-150 [facility] Lakeer[facility] or plasma creatine kinase measurement (enzymatic activity/volume)2019-09-20 10:03:00* Test Item Value Reference Range Interpretation Comments Creatine Kinase (test code = 2157-6) 88 29-168 [facility] Lakeerum or plasma creatine kinase MB measurement (mass/volume)2019-09-20 10:03:00* Test Item Value Reference Range Interpretation Comments Creatine Kinase MB (test code = 64655-2) 2.10 0-5.0 [facility] CenterTroponin I measurement by highly sensitive enzyme dmkmykcwpam3477-22-36 10:03:00* Test Item Value Reference Range Interpretation Comments Troponin I (test code = 83464-5) < 0.001 0-0.300 [facility] or plasma acetaminophen measurement by screening method (mass/volume)2019-09-20 10:03:00* Test Item Value Reference Range Interpretation Comments Acetaminophen Level (test code = 19407-6) < 3.0 10-30 [facility] or plasma ethanol measurement (mass/volume)2019-09-20 10:03:00* Test Item Value Reference Range Interpretation Comments Ethyl Alcohol Level (test code = 5643-2) < 10.0 0.0-10.0 [facility] CenterUrine color hssozzgwifqam4626-39-88 10:00:00* Test Item Value Reference Range Interpretation Comments Urine Color (test code = 5778-6) YELLOW YELLOW [facility] CenterUrine kextdwe4366-70-40 10:00:00* Test Item Value Reference Range Interpretation Comments Urine Clarity (test code = 53620-0) SL CLOUDY CLEAR [facility] Lakepecific gravity of Urine by Test strip 2019-09-20 10:00:00* Test Item Value Reference Range Interpretation Comments Urine Specific [place] (test code = 5811-5) >=1.030 1.010-1.02 5 [facility] CenterUrine pH measurement by automated test qlyql3770-37-65 10:00:00* Test Item Value Reference Range Interpretation Comments Urine pH (test code = 30727-0) 5.5 5-7 [facility] CenterUrine leukocyte esterase detection by xarezafo0356-18-62 10:00:00* Test Item Value Reference Range Interpretation Comments Urine Leukocyte Esterase (test code = 5799-2) NEGATIVE NEGATIVE [facility] CenterUrine nitrite rgimbsimb6881-77-15 10:00:00* Test Item Value Reference Range Interpretation Comments Urine Nitrite (test code = 38484-2) NEGATIVE NEGATIVE [facility] CenterUrine protein measurement by test strip (mass/volume)2019-09-20 10:00:00* Test Item Value Reference Range Interpretation Comments Urine Protein (test code = 5804-0) NEGATIVE NEGATIVE [facility] CenterUrine glucose idyoxexcz0251-60-71 10:00:00* Test Item Value Reference Range Interpretation Comments Urine Glucose (UA) (test code = 2349-9) NEGATIVE NEGATIVE [facility] CenterUrine ketones detection by automated test dznih3808-32-30 10:00:00* Test Item Value Reference Range Interpretation Comments Urine Ketones (test code = 68180-2) NEGATIVE NEGATIVE [facility] CenterUrine opiates screening xjnt7884-13-37 10:00:00* Test Item Value Reference Range Interpretation Comments Urine Opiates Screen (test code = 47380-3) NEGATIVE NEGATIVE ALL TESTS PERFORMED MANUALLY ON Xiimo TOX/SEE TESTBig [facility] Regional Medical CenterBarbiturates screen, yevsb9914-34-51 10:00:00* Test Item Value Reference Range Interpretation Comments Urine Barbiturates Screen (test code = 679433250) NEGATIVE NEGA TIVE [facility] CenterUrine phencyclidine detection by screening bsjqte7418-93-46 10:00:00* Test Item Value Reference Range Interpretation Comments Urine Phencyclidine Screen (test code = 52954-8) NEGATIVE NEGAT GUILLERMO [facility] CenterUrine amphetamines detection by screen method > 1000 ng/rM2223-24-66 10:00:00* Test Item Value Reference Range Interpretation Comments Urine Amphetamines Screen (test code = 64492-7) POSITIVE NEGATI VE This test provides only a screen. Positive results should be repeated by a confi rmatory test.[facility] CenterFluoroscopic procedure less than one hour vabcvrlm2637-29-24 10:00:00* Test Item Value Reference Range Interpretation Comments Urine Methamphetamines Screen (test code = Urine Metha mphetamines Screen) NEGATIVE NEGATIVE [facility] CenterUrine benzodiazepines detection by screening rbptbq7839-41-40 10:00:00* Test Item Value Reference Range Interpretation Comments Urine Benzodiazepines Screen (test code = 59332-2) NEGATIVE NEG ATIVE [facility] CenterUrine cocaine measurement (mass/volume) 2019-09-20 10:00:00* Test Item Value Reference Range Interpretation Comments Urine Cocaine Screen (test code = 3398-5) NEGATIVE NEGATIVE [facility] CenterUrine cannabinoids detection by screening ljguez5207-18-74 10:00:00* Test Item Value Reference Range Interpretation Comments Urine Cannabinoids Screen (test code = 75314-8) NEGATIVE NEGATI VE THESE RESULTS ARE FOR MEDICAL TREATMENT ONLYTHIS REPORT CONTAINS UNCONFIR MED SCREENING RESULTS*POSITIVE RESULTS WILL BE CONFIRMED BY REFERENCE LAB UPON R EQUEST CUT-OFFDRUG CLASS CONCENTRATION ng/mLAmphetamines 1000Methamphetamines 1000Cocaine 300Opiate 300Phencyc lidine 25Cannabinoid 50Barbiturates 300Benzodiazepine 300Methadone 300[facility] methadone szzeml6626-48-28 10:00:00* Test Item Value Reference Range Interpretation Comments Urine Methadone Screen (test code = 82040-4) NEGATIVE NEGATIVE THESE RESULTS ARE FOR MEDICAL TREATMENT ONLYTHIS REPORT CONTAINS UNCONFIR MED SCREENING RESULTS*POSITIVE RESULTS WILL BE CONFIRMED BY REFERENCE LAB UPON R EQUEST CUT-OFFDRUG CLASS CONCENTRATION ng/mLAmphetamines 1000Methamphetamines 1000Cocaine Metabolite 300Opiate 300Phencyc lidine 25Cannabinoid 50Barbiturates 300Benzodiazepine 300Methadone 300[facility] CenterUrine urobilinogen measurement by test strip (mass/volume)2019-09-20 10:00:00* Test Item Value Reference Range Interpretation Comments Urine Urobilinogen (test code = 38284-4) 0.2 0.2-1 [facility] CenterUrine total bilirubin measurement (mass/volume)2019-09-20 10:00:00* Test Item Value Reference Range Interpretation Comments Urine Bilirubin (test code = 1978-6) NEGATIVE NEGATIVE [facility] CenterUrine erythrocytes knaazcybz3185-43-83 10:00:00* Test Item Value Reference Range Interpretation Comments Urine Blood (test code = 64908-3) TRACE NEGATIVE [facility] CenterAutomated urine sediment leukocyte count by microscopy (number/high power field)2019-09-20 10:00:00* Test Item Value Reference Range Interpretation Comments Urine WBC (test code = 5821-4) 11-20 0-5 [facility] CenterErythrocytes detection in urine sediment by light yvncfyrspe1695-68-38 10:00:00* Test Item Value Reference Range Interpretation Comments Urine RBC (test code = 92848-6) 0-5 0-5 [facility] CenterBacteria detection in urine sediment by light kwheohshgy2220-22-05 10:00:00* Test Item Value Reference Range Interpretation Comments Urine Bacteria (test code = 32608-1) MODERATE NONE [facility] CenterEpithelial cells detection in urine sediment by light mmrishdkzt1555-89-60 10:00:00* Test Item Value Reference Range Interpretation Comments Urine Epithelial Cells (test code = 90806-7) MANY NONE [facility] CenterFluoroscopic procedure less than one hour huhjxkha5650-14-33 13:45:00* Test Item Value Reference Range Interpretation Comments Coronavirus (PCR) (test code = Coronavirus (PCR)) NOT DETECTED NOTD ETECTED SARS-COV-2 (COVID19), HIGHRISK, RT-PCRNegative results do not preclude SARS-CoV- 2 infection and should not be used as the sole basis for patient management deci sions. Negative results must be combined with clinical observations, patient his tory, and epidemiological information. Optimum specimen types and timing for pea k viral levels during infections caused by SARS-CoV-2 have not been determined. Collection of multiple specimens ot types of specimens may be necessary to detec t virus. Improper specimen collection and handling, sequence variability under p rimers/probes, or organism present below the limit of detection may lead to fals e negative results. Positive and negative predictive values of testing are highl y dependent on prevalance. False negative test results are more likely when prev alence is high.The expected result is negative (not detected).The SARS-CoV-2 bobby t is intended for the qualitative detection of nucleic acid from SARS-CoV-2 in n asopharyngeal and oropharyngeal swab samples from patients who meet COVID-19 cli nical and or epidemiological criteria. For lower respiratory tract specimens, th e assay is submitted for authoriztion by FDA under an Emergency Use Authorizatio n (EUA). Testing methodology is real time RT-PCR. If received as separate collec tion devices, nasopharygeal and oropharyngeal specimens are combined for analysi s. Additional specimens may be split to a separate accession for analysi and rep orting as this test includes a single unit of service.Test results must be corre lated with clinical presentation and evaluated in the context of other laborator y and epidemiologic data. Test performance can be affected because the epidemiol ogy and clinical spectrum of infection caused by SARS-CoV-2 is not fully known. For example, the optimum types of specimens to collect and when during the cours e of infection these specimens are most likely to contain detectable viral RNA m ay not be known.This test has not been Food and Drug Administration (FDA) cleare d or approved and has been authorized by FDA under an Emergency Use Authorizatio n (EUA). The test is only authorized for the duration of the declaration that ci rcumstances exist justifying the authorization of emergency use of in vitro diag nostic tests for detection and/or diagnosis of SARS-CoV-2 under section 564(b) o f the Act, 21 U.S.C. section 360bbb-3(b)(1), unless the authorization is termina jyoti or revoked sooner. [facility] are certified under the C linical Laboratory Improvement Amendments of 1988 (CLIA), 42 U.S.C. section 263a , to perform high complexity tests.Specimen sent to [facility] and testing performed by [facility] [id number] [place] [address] [phone] Director: Henrique Rae M.D.CLIA # [id number] [facility] Medical CenterBacteria identification in wound by tcezxfi4027-30-16 13:30:00* Test Item Value Reference Range Interpretation Comments Wound Culture (test code = 6462-6) STAPHYLOCOCCUS AUREUS-MRSA [facility] CenterUrine human chorionic gonadotropin (hCG) bhuicexgn0529-27-55 10:48:00* Test Item Value Reference Range Interpretation Comments Urine Test (test code = 2106-3) NEGATIVE NEGATIVE [facility][U] XRAY ANKLE MIN 3 VWS LEFT 67670 2019-06-01 11:55:00Images acquired, not reported on this accession number. [facility][U] XR CALCANEUS (HEEL) 2 VWS, MIN. LEFT 06532 2019-06-01 11:55:00Images acquired, not reported on this accession number. [facility][U] XR CALCANEUS (HEEL) 2 VWS, MIN. LEFT 96818 2019-04-13 08:36:00Images acquired, not reported on this accession number. [facility][U] XR CALCANEUS (HEEL) 2 VWS, MIN. LEFT 82558 2019-03-02 09:44:00Images acquired, not reported on this accession number. [facility] PhysiciansSerum or plasma choriogonadotropin ( test) gwrjepdps5008-70-54 08:50:00* Test Item Value Reference Range Interpretation Comments Human Chorionic Gonadotropin, Qual (test code = 2118-8) NEGATIVE NEGATIVE [facility][U] XR CALCANEUS (HEEL) 2 VWS, MIN. LEFT [id number] 08:32:00Images acquired, not reported on this accession number. [facility] PhysiciansCHEM LLCEZ9601-67-10 05:35:0098[facility] CHEM EVXSE3801-56-79 05:35:0012[facility] HermannCHEM QACZC6963-14-61 05:35:000.77 [facility]annCHEM RAENP8921-16-99 05:35:77551Ppxrzhxn HermannCHEM PANEL 2019-01-13 05:35:003.8[facility]annCHEM ZMYPJ2469-37-91 05:35:28306Ttbygizj HermannCHEM TLXXS1634-29-13 05:35:0024[facility]annCHEM BHPYD6546-53-22 05:35:007.7[facility]annCHEM SFPTZ8863-07-00 05:35:0091[facility]annCHEM QIGAK8063-65-57 05:35:0010.8[facility] VkpjbrmVBDROHISOE7387-22-78 05:35:0066.5 [facility] GqhfsftJFXZKLUGUV6940-49-39 05:35:0022.3[facility]annHEMATOLOGY 2019-01-13 05:35:009.7[facility] GykmtjeQFNRTXRAPB4275-11-30 05:35:001.1[facility] RclsncuWXZUHPAVOW0610-22-76 05:35:000.4[facility] XvijadtEYVPQDSNBE3262-01-55 05:35:003.8[facility] IqmrgwjCDUQXUOESH2485-14-30 05:35:001.3[facility] SNCMVGDZJM5658-39-48 05:35:000.6[facility] FegkxnqOVGOEUJQFY3359-90-64 05:35:000.1 [facility] GepduonLEHCFPYIOK7892-71-39 05:35:005.7[facility] HermannHEMATOLOGY 2019-01-13 05:35:003.39[facility] JfjdqmxBYOJFOSZFA4032-39-69 05:35:0011.1[facility] UdckjpaOHGXISEKMH0204-19-12 05:35:0033.2[facility] FewfqpdDBZSAEJIIQ5258-40-73 05:35:0098.0[facility] MzonsojGGOTRQTLNI1938-05-10 05:35:00* Test Item Value Reference Range Interpretation Comments MCH (test code = MCH) 32.9 pg 27.0-31.0 [facility] CxmqqmqNCPVADJVPK3019-74-30 05:35:0033.5[facility] HermannHEMATOLOGY 2019-01-13 05:35:0013.8[facility] MaaywhsIFTXLLHFDZ3441-75-66 05:35:49184Cmvliyqw SgnbqvdONEGCHUIVZ7921-70-71 05:35:008.1[facility] HermannCHEM DHTQQ1234-14-80 05:11:29519Laydsyag HermannCHEM JHEET3282-68-86 05:11:0013[facility] HermannCHEM BCLPT6274-56-30 05:11:000.87[facility] HermannCHEM ILASA4222-34-47 05:11:45868 [facility]annCHEM GUTBJ4598-53-74 05:11:003.4[facility] HermannCHEM PANEL 2019-01-12 05:11:85193Ayfiazhz HermannCHEM OXTQI9606-48-44 05:11:0025[facility] HermannCHEM BBNDW8621-97-72 05:11:008.0[facility] HermannCHEM FHIIZ2720-30-27 05:11:0078[facility]annCHEM GVTCS6985-02-10 05:11:009.4[facility] JZTTLXXSSL3238-77-76 05:11:006.5[facility] KqidslyJLMFXSSVEB1596-39-99 05:11:00 3.28[facility] YsiamldDCWNRTUHSS0154-01-26 05:11:0011.0[facility]annHEMATOLOGY 2019-01-12 05:11:0031.8[facility] AxxjjklBFHCAVXSVC0022-97-07 05:11:0096.7[facility] XctaidnKZNBWJGLHW1783-01-15 05:11:00* Test Item Value Reference Range Interpretation Comments MCH (test code = MCH) 33.4 pg 27.0-31.0 [facility] UkrvuuhFTGJPNTJMG7573-73-82 05:11:0034.5[facility]annHEMATOLOGY 2019-01-12 05:11:0013.9[facility] JlhvogoDMUMZZFUJE9760-19-08 05:11:79803Zjzyygyd PkmxhksJQZNXUNCBL6711-05-20 05:11:007.6[facility] MhsgkfwOHDVDBLHUI3867-93-77 05:11:0065.6[facility] TevvorqQQQUWTRCGV0394-98-80 05:11:0023.0[facility] HQJNGTVVSA0172-89-39 05:11:0010.3[facility] OlhdcklUGTDOFKDKK7056-80-28 05:11:00 0.9[facility] OcbtkmyVXWSNFSWXC8064-70-13 05:11:000.2[facility]annHEMATOLOGY 2019-01-12 05:11:004.2[facility] DznvzumLGJUCGRFPK3341-50-07 05:11:001.5[facility] JksuoeyNYAPENWYPM5052-96-09 05:11:000.7[facility] BhzruhhUQCJQJZTMP6227-81-02 05:11:000.1[facility] HermannUS RENAL RETROPERITONEAL TLZD1443-16-02 14:01:00 [place] [address] Patient Name: TOM CHO MR #: [id number] : 1970 Age/Sex: 47/F Req #: [id number] [facility] Physician: Ordered by: HAJA MARS MD Report #: [id number] Location: Room/Bed: Procedure: [id number] US/US RENAL RETROPERITONEAL COMP Exam Date: 07/01/18 Exam Time: 0833 REPORT STATUS: Si gned EXAMINATION: Renal ultrasound. CLINICAL HISTORY :Recurrent urinary tract infection COMPARISON: CT abdomen and pelvis 09/21/2011 TECHNIQUE: Grayscale and color Doppler evaluation of the kidneys and bladder was perform ed in transverse and longitudinal planes. DISCUSSION: RIGHT KIDNEY: T he right kidney measures 11.2 cm in length and shows normal renal cortical ech ogenicity. No hydronephrosis, shadowing calculi or solid mass lesions. LEFT KIDNEY: The left kidney measures 10.8 cm in length and shows normal renal cortical echogenicity. No hydronephrosis, shadowing calculi or solid mass l esions. BLADDER: Unremarkable. Right and left ureteral jets are identified . IMPRESSION: 1. Unremarkable renal ultrasound. Signed by: Dr. Keaton Palomino M.D. on 07/01/2018 2:03 PM Dictated By: KEATON PALOMINO MD 140 3 Transcribed By: JENARO on 07/01/18 1403 COPY TO: HAJA MARS BREAST ULTRASOUND AVNVEWYIK2487-79-60 16:24:32- BREAST ULTRASOUND BILATERALULTRASOUND OF BOTH BREASTS AND [...] unremarkable. IMPRESSION: BENIGN There is no sonographic evid ence of malignancy. Patient has been informed that she has areas of dense breas t tissue that could make it difficult to find a small cancer. A screening mammog ruben and supplemental ultrasound for dense breast tissue is recommended in 1 year .Sun Cruz M.D. dm/:03/26/2018 16:24:32 Entry: - 03/27/2018 10:34:31Ima ging Technologist: Debbi DUNN, [facility]-FWletter sent: ABDOUL S 1-2 Normal Ultrasound BI-RADS: 2 BenignSCR MAMM BILATERAL DAMON CAD DIGITAL 2018-03-26 16:23:37 - SCR MAMM BILATERAL DAMON CAD DIGITALBILATERAL DIGITAL SCREENING MAMMOGRAM 3D/2D WITH CAD: 03/26/2018CLINICAL: Asymptomatic. Digital breast tomosynthesis was performed in addition to routine CC and MLO views. Current mammographic images were evaluated by either a [employer] or a [employer] ImageChecker CAD (computer aided detection system). Comparison is made to exam dated 02/28/2017 mammogram - [facility]-. The tissue of both breasts is heterogeneously dense. This may lower the sensitivity of mammography. No suspicious mass, architectural distortion, malignant type calcification, or lymph node abnormality detected. IMPRESSION: NEGATIVEUltrasound pending for additional evaluation. There is no mammographic evidence of malignancy. Sun Cruz M.D. dm/penrad:03/26/2018 16:23:37 Entry: - 03/27/2018 08:31:33Imaging Technologist: Laura DUNN, [facility]- FWMammogram BI-RADS: 1 NegativeHEPTOBILIARY W PHARM [place] [address] Patient Name: TOM EDWARDS MR #: [id number] : 1970 Age/Sex: 46/F Req #: [id number] Adm Physician: Ordered by: VLADIMIR WILLS DO Report #: [id number] Location: [place] Room/Bed: Procedure: [id number] NM/HEPTOBILIARY W PHARM Exam Date: 01/10/17 Exam Time: 0830 REPORT STA TUS: Signed Hepatobiliary Scan with Gallbladder Ejection Fraction Clinic al information: 46 F with RUQ abdominal pain x 2-3 weeks Technique: Followi ng intravenous administration of 6.2 millicuries of Tc-99m mebrofenin, dynamic images of the abdomen in the anterior projection were obtained through 30 min utes. Sincalide (CCK analog) 1.5 micrograms was administered intravenously ov er 30 minutes with additional imaging for determination of gallbladder ejectio n fraction. Discussion: Perfusion of the liver is normal. Extraction of tr acer by the liver parenchyma is normal. Tracer appears promptly within the bi liary tract. The gallbladder begins to fill by 10 minutes post injection of tracer and fills adequately. Tracer is seen in the small bowel during the sin calide infusion. The gallbladder ejection fraction with sincalide is 24% (nor mal greater than 40%). Impression: 1. Filling of the gallbladder e xcludes acute cystic duct obstruction/acute cholecystitis. 2. The decrea sed gallbladder ejection fraction of 24% supports the clinical diagnosis of ch ronic cholecystitis/gallbladder dyskinesia. Signed by: Chito Sultana on 01/10/2017 6:05 PM Dictated By: ANA LOVELL MD Electronically Nayely d By: ANA LOVELL MD on 01/10/171804 Transcribed By: JENARO on 01/10/171804 COPY TO: VLADIMIR WILLS DO ABDOMEN COMPLETE [place] [address] Patient Name: TOM CHO MR #: [id number] : 1970 Age/Sex: 46/F Req #: [id number] Adm Physician: Ordered by: VLADIMIR WILLS DO Report #: [id number] Location: US Room/Bed: Procedure: [id number] US/US ABDOMEN COMPLETE Exam D ate: 12/24/16 Exam Time: 815 REPORT STATUS: Si gned PROCEDURE: ABDOMINAL ULTRASOUND COMPARISON: None. INDICATIONS: RUQ Pain FINDINGS: Liver: 12.3 cm. Normal hepatic parenchymal ec hogenicity. No focal mass. Main portal vein: 1.3 cm. Hepatopedal flow. Gallbladder: No echogenic calculi, gallbladder wall thickening, or peric holecystic fluid. The gallbladder measures 12.6 cm in greatest length and 4.4 cm in greatest width. Common Bile Duct: 3.0 mm. No echogenic filling defect. Sonographic Oh's sign: Negative. Right kidney: 11.9 cm. No solid or cystic mass, echogenic calculi, or hydronephrosis. Normal parenchymal echoge nicity. Left kidney: 10.8 cm. No solid or cystic mass, echogenic calculi, or hydronephrosis. Normal parenchymal echogenicity. Spleen: 10.1 cm. No fo karyn mass. Pancreas: The pancreas was insufficiently visualized for comment secondary to overlying bowel gas. Inferior vena cava: Normal. Aorta: Nor mal. Ascites: None. CONCLUSION: 1. No acute sonographic abnorma lity. 2. Prominent gallbladder may represent gallbladder hydrops. No sonogr aphic evidence of cholelithiasis or cholecystitis. Dictated by: Melvin Slater M.D. on 12/24/2016 at 9:00 Electronically approved by: Anuja Slater M.D. on 12/24/2016 at 9:00 Dictated By: ANUJA SLATER MD E lectronically Signed By: ANUJA SLATER MD on 12/24/16899 Transcribed By: KAITLIN on 12/24/16899 COPY TO: VLADIMIR WILLS DO
--- OUTSIDE RECORDS SUMMARY | 2019-11-05 22:51 | XMS REPORT ---
Author Author Germania Rose Secure Organization Unknown Address Unknown Phone Unavailable Care Team Providers Care Food Science Professor Name Role Phone Freddy Domo Unavailable PROBLEMS Condition Status Date Provider Notes ANXIETY DISORDER, OTHER SPECIFIED active Domo Hayes ADHD, OTHER SPECIFIED active Domo Hayes DEPRESSIVE DISORDER, OTHER SPECIFIED active Dagoberto Hayes ENCOUNTERS Date Type Provider Location Encounter Diagn osis - Ambulatory Encounter Domo Hayes UNK - Ambulatory Encounter Domo Nunez Carvajal UNK - Ambulatory Encounter Domo Carvjaal UNK - Ambulatory Encounter Domo Bhatt UNK - Ambulatory Encounter Domo Hayes UNK - Ambulatory Encounter Domo Vora UNK - Ambulatory Encounter Domo Hayes UNK - Ambulatory Encounter Domo Hayes UNK - Ambulatory Encounter Domo Navas UNK - Ambulatory Encounter Domo Hayes UNK - Ambulatory Encounter Domo Hayes UNK - Ambulatory Encounter Domo Hayes UNK - Ambulatory Encounter Domo Bañuelos UNK - Ambulatory Encounter Domo Eagle Henderson UNK - Ambulatory Encounter Domo Eagle Henderson UNK - Ambulatory Encounter Domo Hayes UNK - Ambulatory Encounter Domo Drummond UNK - Ambulatory Encounter Domo SaucedoLogtrina UNK - Ambulatory Encounter Domo SaucedoLogtrina UNK - Ambulatory Encounter Brenda garrett Beto UNK - Ambulatory Encounter Meredith Beto UNK - Ambulatory Encounter Domo Hayes UNK - Ambulatory Encounter Domo Hayes UNK - Ambulatory Encounter Domo Harper Beto UNK - Ambulatory Encounter Domo Hayes UNK - Ambulatory Encounter Domo Vora UNK - Ambulatory Encounter Domo Hayes UNK - Ambulatory Encounter Domo Harper Beto UNK - Ambulatory Encounter Domo Bañuelos UNK - Ambulatory Encounter Domo Hayes UNK - Ambulatory Encounter Domo Hayes UNK - Ambulatory Encounter Domo Hayes UNK - Ambulatory Encounter Domo Harper Beto UNK - Ambulatory Encounter Domo Harper Beto Judson Marie UNK - Ambulatory Encounter Domo Tilleyaubrey Oliveros Jarekaubrey LinkLogtrina UNK - Ambulatory Encounter Domo Tilleyaubrey tong Jarekaubrey UNK - Ambulatory Encounter Domo Tilleyaubrey tong Jarekaubrey UNK - Ambulatory Encounter Domo Tilleyaubrey tong Jarekaubrey UNK - Ambulatory Encounter Domo Harper Beto DEPRESSIVE DISORDER, OTHER S PECIFIEDADHD, OTHER SPECIFIEDANXIETY DISORDER, OTHER SPECIFIED - Ambulatory Encounter Shagufta Henderson UNK VITAL SIGNS Date Observation Value Provider blood pressure, diastolic 78 mm[Hg] Meredith Beto " blood pressure, systolic 141 mm[Hg] Meredith G ovea " pulse rate 75 /min Meredith Beto " weight E&M 126 lbs. Meredith Beto " weight in kilograms E&M 57.27 kg Meredith Go rain " method used to obtain blood pressure automatic Meredith Beto " Blood Pressure Position 01 sitting Meredith Beto " blood pressure, site #1 left arm Meredith Go rain " height E&M 61.50 [in_i] Meredith Beto " height in centimeters E&M 156.21 cm Meredith Beto blood pressure, diastolic 77 mm[Hg] Crystal Vora " blood pressure, systolic 127 mm[Hg] Crystal C astaneda " pulse rate 71 /min Crystal Vora " method used to obtain blood pressure automatic Crystal Vora " Blood Pressure Position 01 sitting Crystal Vora " blood pressure, site #1 left arm Crystal Ca staneda " weight E&M 130 lbs. Crystal Vora " weight in kilograms E&M 59.09 kg Crystal Ca staneda " height E&M 61.50 [in_i] Crystal Vora " height in centimeters E&M 156.21 cm Crystal Vora method used to obtain blood pressure automatic Meredith Beto " Blood Pressure Position 01 sitting Meredith Beto " blood pressure, site #1 right arm Meredith Go rain " blood pressure, diastolic 77 mm[Hg] Meredith Beto " blood pressure, systolic 128 mm[Hg] Meredith G ovea " pulse rate 80 /min Meredith Beto " weight E&M 201.25 lbs. Meredith Beto " weight in kilograms E&M 91.48 kg Meredith Go rain " height E&M 61.50 [in_i] Meredith Beto " height in centimeters E&M 156.21 cm Meredith Beto method used to obtain blood pressure automatic Meredith Beto " Blood Pressure Position 01 sitting Meredith Beto " blood pressure, site #1 left arm Meredith Go rain " blood pressure, diastolic 81 mm[Hg] Meredith Beto " blood pressure, systolic 130 mm[Hg] Meredith G ovea " pulse rate 79 /min Meredith Beto " weight E&M 132.38 lbs. Meredith Beto " weight in kilograms E&M 60.17 kg Meredith Go rian " height E&M 61.50 [in_i] Meredith Beto " height in centimeters E&M 156.21 cm Meredith Beto method used to obtain blood pressure automatic Meredith Beto " Blood Pressure Position 01 sitting Meredith Beto " blood pressure, site #1 right arm Meredith Go rain " blood pressure, diastolic 76 mm[Hg] Meredith Beto " blood pressure, systolic 127 mm[Hg] Meredith G ovea " pulse rate 74 /min Meredith Beto " weight E&M 132.13 lbs. Meredith Beto " weight in kilograms E&M 60.06 kg Meredith Go rain " height in centimeters E&M 156.21 cm Meredith Beto " height E&M 61.5 [in_i] Meredith Beto Allergies No Known Allergy Information REASON FOR REFERRAL No Information Available RESULTS No Information Available HISTORY OF IMMUNIZATIONS No Information Available HISTORY OF MEDICATION USE Medication Instructions Dates Provider Comments ZOLOFT 50 MG ORAL TABLET Take 1/2 tab for 2 weeks, th en start taking 1 tab By Mouth Every Morning Domo Hayes ABILIFY 10 MG ORAL TABLET Take 1 tab By Mouth take at bedtime 20 13/05/16 Domo Hayes AMBIEN 10 MG ORAL TABLET Take 1 tab By Mouth take at bedtime 201 11/30/07 Domo Hayes Prescription monitoring program checked on all controlled medications prescribed. WELLBUTRIN XL 300 MG ORAL TABLET EXTENDED RELEASE 24 H OUR Take 1 tab By Mouth Every Morning Domo Hayes LEXAPRO 20 MG ORAL TABLET Take 2 tabs By Mouth take at bedtime 2 Domo Hayes GUANFACINE 1 MG TABLET TAKE 1 TAB BY MOUTH TWICE A DAY 8 Domo Hayes ADDERALL 20 MG ORAL TABLET Take 1 tab By Mouth Twice a Day 10/29 Domo Hayes Prescription monitoring program checked on all controlled medications prescribed. TOPIRAMATE 100 MG TABLET TAKE 1 TABLET BY MOUTH TWICE A DAY 2018 Domo Hayes SOCIAL HISTORY Date Observation Value Provider tobacco use (cigarettes, cigar, chew, pipe) Curr ently Domo Hayes " smoking status never smoker Domo Hayes tobacco use (cigarettes, cigar, chew, pipe) Curr ently Domo Hayes " smoking status never smoker Domo Hayes smoking [...] " social history reviewed E&M reviewed today Dagoberto Hayes " social history E&M Grew up in [facility] - 3rd of 5 children Currently seperated - for 3 years - 3 previous times Boyfriend living with her currently 2nd marrige - first marriage - 2 years 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 [employer] Associate degree - [employer] Domo Hayes " family support Grew up in [place] - 3rd o f 5 children Domo Hayes " home/family situation, assessment Renetta rausch seperated - for 3 years - 3 previous times Boyfriend living with her currently 2nd marrige - first marriage - 2 years Domo Hayes FUNCTIONAL STATUS No Information Available MENTAL STATUS Date Observation Value Provider mental status assessment, judgment fair Domo Hayes " insight (mental status exam) fair, Osei hael Berno " Mental Status Exam: intelligence oriente d to person, oriented to place, oriented to time, oriented to reality Domo Berno " hallucinations none Domo Berno " thought content (mental status exam) (E&M) lucid Domo Berno " mental status assessment, process goal-directed, logical Domo Berno " mental status assessment, sensorium alert, clear Domo Berno " affect (mental status exam) congruent, more full Domo Berno " mood (mental status exam) " allright " Michae l Berno " mental status assessment, speech activit y normal flow, normal pace, normal pressure, normal rate, normal tone, normal volume, spontaneous Domo Berno " mental status assessment, motor activity sitting at office at work Domo Berno " behavior (mental status exam) appropriate, coope rative, responsive, engaged Domo Berno " mental appearance (mental status exam) s een via telemedicine appt. seen via telemedicine appt. seen via telemedicine appt. Domo Hayes mental status assessment, judgment fair Domo Hayes " insight (mental status exam) Osei reynolds " Mental Status Exam: intelligence oriente d to person, oriented to place, oriented to time, oriented to reality Domo Berno " hallucinations none Domo Berno " thought content (mental status exam) (E&M) lucid Domo Tilleyo " mental status assessment, process goal-directed, logical Odmo Berno " mental status assessment, sensorium alert, clear Domo Berno " affect (mental status exam) congruent, anxious Domo Berno " mood (mental status exam) " anxious " Michae l Berno " mental status assessment, speech activit y normal flow, normal pace, normal pressure, normal rate, normal tone, normal volume, spontaneous Domo Berno " mental status assessment, motor activity sitting at office at work Domo Berno " behavior (mental status exam) appropriate, coope rative, responsive, engaged Domo Berno " mental appearance (mental status exam) s een via telemedicine appt. seen via telemedicine appt. seen via telemedicine appt. Domo Hayes mental status assessment, judgment fair Domo Tilleyo " insight (mental status exam) fair Osei arcelia Tilleyo " Mental Status Exam: intelligence oriente d to person, oriented to place, oriented to time, oriented to reality Domo Berno " hallucinations none Domo Berno " thought content (mental status exam) (E&M) lucemmy Hayes " mental status assessment, process goal-directed, logical Domo Hayes " mental status assessment, sensorium alert, clear Domo Tilleyo " affect (mental status exam) congruent, anxious Domo Hayes " mood (mental status exam) " not depressed as muc h as anxious " Domo Hayes " mental status assessment, speech activit y normal flow, normal pace, normal pressure, normal rate, normal tone, normal volume, spontaneous Domo Hayes " mental status assessment, motor activity sitting at office at work Domo Hayes " behavior (mental status exam) appropriate, coope rative, responsive, fair EC Domo Hayes " mental appearance (mental status exam) s een via telemedicine appt. seen via telemedicine appt. seen via telemedicine appt. Domo Hayes mental status assessment, judgment fair Domo Hayes " insight (mental status exam) Osei reynolds " Mental Status Exam: intelligence oriente d to person, oriented to place, oriented to time, oriented to reality Domo Tilleyo " hallucinations none Domo Berno " thought content (mental status exam) (E&M) lucemmy Hayes " mental status assessment, process goal-directed, logical Dmoo Tilleyo " mental status assessment, sensorium alert, clear Domo Hayes " affect (mental status exam) congruent, e uthymic, normal intensity, normal range Domo Hayes " mood (mental status exam) " better " Michae ran Hayes " mental status assessment, speech activit y normal flow, normal pace, normal pressure, normal rate, normal tone, normal volume, spontaneous Domo Hayes " mental status assessment, motor activity sitting at office at work Domo Hayes " behavior (mental status exam) appropriate, coope rative, responsive, fair EC Domo Hayes " mental appearance (mental status exam) s een via telemedicine appt. seen via telemedicine appt. seen via telemedicine appt. Domo Hayes mental status assessment, judgment fair Domo Hayes " insight (mental status exam) Osei reynolds " Mental Status Exam: intelligence oriente d to person, oriented to place, oriented to time, oriented to reality Domo Jareko " hallucinations none Domo Berno " thought content (mental status exam) (E&M) lucid Domo Hayes " mental status assessment, process goal-directed, logical Domo Berno " mental status assessment, sensorium alert, clear Domo Berno " affect (mental status exam) congruent, e uthymic, normal intensity, normal range Domo Berno " mood (mental status exam) " more irritable " Domo Berno " mental status assessment, speech activit y normal flow, normal pace, normal pressure, normal rate, normal tone, normal volume, spontaneous Domo Berno " mental status assessment, motor activity wearing boot Domo Berno " behavior (mental status exam) appropriate, coope rative, responsive, fair EC Domo Berno " mental appearance (mental status exam) adequate hygiene, appropriate dress Domo Tilleyo affect (mental status exam) congruent, e uthymic, normal intensity, normal range Domo Berno " mental status assessment, judgment fair Domo Berno " insight (mental status exam) fair, Osei hael Berno " Mental Status Exam: intelligence oriente d to person, oriented to place, oriented to time, oriented to reality Domo Berno " hallucinations none Domo Berno " thought content (mental status exam) (E&M) lucid Domo Tilleyo " mental status assessment, process goal-directed, logical Domo Berno " mental status assessment, sensorium alert, clear Domo Berno " mood (mental status exam) " better " Michae l Berno " mental status assessment, speech activit y normal flow, normal pace, normal pressure, normal rate, normal tone, normal volume, spontaneous Domo Berno " mental status assessment, motor activity has kne e scooter Domo Berno " behavior (mental status exam) appropriate, coope rative, responsive, fair EC Domo Berno " mental appearance (mental status exam) adequate hygiene, appropriate dress Domo Tilleyo mental status assessment, judgment fair Domo Berno " insight (mental status exam) fair, limited Osei hael Berno " Mental Status Exam: intelligence oriente d to person, oriented to place, oriented to time, oriented to reality Domo Berno " hallucinations none Domo Berno " thought content (mental status exam) (E&M) lucid Domo Tilleyo " mental status assessment, process goal-directed, logical Domo Berno " mental status assessment, sensorium alert, clear Domo Berno " affect (mental status exam) incongruent, intense Domo Berno " mood (mental status exam) " OK " Michae l Berno " mental status assessment, speech activit y normal flow, normal pace, normal pressure, normal rate, normal tone, normal volume, spontaneous Domo Berno " mental status assessment, motor activity in whee lchair Domo Berno " behavior (mental status exam) appropriate, coope rative, responsive, fair EC Domo Tilleyo " mental appearance (mental status exam) adequate hygiene, appropriate dress Domo Hayes mental status assessment, judgment fair Domo Tilleyo " insight (mental status exam) fair Osei hael Berno " Mental Status Exam: intelligence oriente d to person, oriented to place, oriented to time, oriented to reality Domo Berno " hallucinations none Domo Berno " thought content (mental status exam) (E&M) lucid Domo Tilleyo " mental status assessment, process goal-directed, logical Domo Berno " mental status assessment, sensorium alert, clear Domo Berno " affect (mental status exam) congruent, euthymic Domo Tilleyo " mental status assessment, speech activit y normal flow, normal pace, normal pressure, normal rate, normal tone, normal volume, spontaneous Domo Berno " mental status assessment, motor activity normal gait, normal posture, fidgety Domo Berno " behavior (mental status exam) appropriate, coope rative, responsive Domo Tilleyo " mental appearance (mental status exam) adequate hygiene, appropriate dress Domo Hayes anxiety worry a lot, irritab ility, many physical complaints, muscle tension Domo Berno " mental status assessment, judgment fair Domo Tilleyo " insight (mental status exam) fair Osei hanoé Tilleyo " Mental Status Exam: intelligence adequat e fund of information, intact memory processes, oriented to person, oriented to place, oriented to time, oriented to reality Domo Berno " hallucinations none Domo Berno " thought content (mental status exam) (E&M) lucid Dmoo Tilleyo " mental status assessment, process able to abstra ct, goal-directed, logical Domo Berno " mental status assessment, sensorium alert, clear Domo Berno " affect (mental status exam) congruent, euthymic Domo Berno " mental status assessment, speech activit y normal flow, normal pace, normal pressure, normal rate, normal tone, normal volume, spontaneous Domo Berno " mental status assessment, motor activity normal gait, normal posture, fidgety Domo Berno " behavior (mental status exam) appropriate, coope rative, responsive Domo Berno " mental appearance (mental status exam) adequate hygiene, appropriate dress Domo Hayes MEDICAL EQUIPMENT No Information Available FAMILY HISTORY No Information Available INSURANCE PROVIDERS No Information Available ADVANCE DIRECTIVES No Information Available TREATMENT PLAN Date Name Est Patient Exp Problem - 99 213 Est Patient Detailed - 21411 Est Patient Detailed - 67735 Est Patient Detailed - 36874 Est Patient Detailed - 48319 Est Patient Exp Problem - 99 213 Est Patient Detailed - 37305 Est Patient Detailed - 99545 Diagnostic evaluation with sherin lazaro - 79610 HISTORY OF PROCEDURES Procedure Date Procedure Name Provider Procedure Notes Status Diagnostic evaluation with nicky - [id number] Haney no completed GOALS No Information Available HEALTH CONCERNS No Information Available
--- NOTE | 2019-11-05 23:13 | NUR ---
Pt reports generalized weakness & dizziness, Dr Gomez at bedside this time.
[2019-11-05] MEDS ORDERED: SODIUM CHLORIDE 0.9% 1000ML 1,000 ML IV ONE (23:15)
--- NOTE | 2019-11-05 23:20 | NUR ---
Pt hypotensive per monitor, 2nd IV access at RAC 18g in place, IV bolus started & repeat EKG done.
[2019-11-05] MEDS ORDERED: SODIUM CHLORIDE 0.9% 1000ML 1,000 ML ONE (23:21)
[2019-11-06] MEDS ORDERED: SODIUM CHLORIDE 0.9% 1000ML 1,000 ML ONE (00:39)
[2019-11-06] MEDS ORDERED: FUROSEMIDE INJ 10 MG/ML 4 ML VIAL ONE (01:37)
--- NOTE | 2019-11-06 03:45 | NUR ---
Patient sleeping but is easily arousable. Patient alert and oriented times 3. No distress noted at this time.
--- NOTE | 2019-11-06 04:00 | NUR ---
Per Dr Gomez order to let pt ambulate and assess mentation if AAOx3 at 5am she will be going home otherwise will be admitted to [facility]. Will continue to monitor pt at this time.
--- NOTE | 2019-11-06 04:30 | NUR ---
Pt went back to sleep vital signs stable, awake but still moderately sluggish easily awaken with stimuli.
--- NOTE | 2019-11-06 05:05 | NUR ---
Patient was able to ambulate from ER-10 to restroom with minimal help from RN, pt AAOx4 & was walking at steady gait. Dr Gomez observing at nurses station & agreed to discharge pt to home.
--- NOTE | 2019-11-06 05:22 | NUR ---
Pt calling her significant others for transportation to home. no further complaints made.
[2019-11-06 05:24] VITALS: BP 92/55
== END 2019-11-06 05:25 | disposition home or self-care (01) ==
LOC: ER 22:48
DX: T42.6X1A Poisoning by other antiepileptic and sedative-hypnotic drugs, accidental (unintentional), initial encounter (principal); F41.9 Anxiety disorder, unspecified; F32.9 Major depressive disorder, single episode, unspecified
CPT/HCPCS: 36415; 80053; 80307; 80329 ×2; 82550; 82553; 84484; 85025; 93005; 99284; J1940; J7030 ×2

== ENCOUNTER 2021-03-30 14:55 | Inpatient (IN) | payer BC ==
[~2021-03-30] VITALS: Ht 157.5 cm; Wt 56.7 kg
[2021-03-30] MEDS ORDERED: SODIUM CHLORIDE 0.9% 1000ML 1,000 ML IV STA (15:17)
[2021-03-30] MEDS ORDERED: ONDANSETRON HCL INJ 2MG/ML 2ML 2 MG/ML VIAL IV PRN (15:30)
[2021-03-30] MEDS ORDERED: DIATRIZOATE MEGL/DIATRIZOA SOD 30 ML BTL PO ONE (15:35)
[2021-03-30 15:53] LABS: BASOPHILS % 0.2 % (0.0-1.0); EOSINOPHILS % 0.2 % (0.0-6.0); HEMATOCRIT 42.9 % (34.2-44.1); HEMOGLOBIN 13.8 g/dL (12.0-16.0); LYMPHOCYTES % 15.6 % (18.0-39.1); MEAN CORPUSCULAR HEMOGLOBIN 31.4 pg (28-32); MEAN CORPUSCULAR HGB CONC 32.2 g/dL (31-35); MEAN CORPUSCULAR VOLUME 97.7 fL (81-99); MONOCYTES # (AUTO) 0.3 (0.2-0.8); MONOCYTES % 5.2 % (4.4-11.3); NEUTROPHILS # (AUTO) 4.8 (2.1-6.9); NEUTROPHILS % 78.5 % (38.7-80.0); PLATELET COUNT 199 x10e3/uL (140-360); RED BLOOD COUNT 4.39 x10e6/uL (3.6-5.1); RED CELL DISTRIBUTION WIDTH 13.2 % (11.7-14.4)
[2021-03-30 16:13] LABS: ALBUMIN 3.7 g/dL (3.5-5.0); ALBUMIN/GLOBULIN RATIO 1.4 (0.8-2.0); ANION GAP 11.1 mmol/L (8-16); CALCIUM 9.9 mg/dL (8.4-10.2); CREATININE, SERUM 0.86 mg/dL (0.57-1.11); POTASSIUM 4.1 mmol/L (3.5-5.1)
[2021-03-30 17:09] LABS: CLARITY,URINE SL CLOUDY (CLEAR); COLOR,URINE STRAW (YELLOW); KETONES,URINE 1+ (NEGATIVE); LEUKOCYTE ESTERASE ,URINE NEGATIVE (NEGATIVE); NITRITE,URINE NEGATIVE (NEGATIVE); PROTEIN,URINE DIPSTICK NEGATIVE (NEGATIVE); URINE UROBILINOGEN 0.2 mg/dL (0.2 - 1)
[2021-03-30 17:15] LABS: BACTERIA,URINE MODERATE /HPF; EPITHELIAL CELLS,URINE MODERATE /LPF
[2021-03-30] MEDS ORDERED: BENZOCAINE/TETRACAINE/BUTAMBEN AERO SPRAY 56 GM CAN TOP ONE (18:15)
[2021-03-30] MEDS: SODIUM CHLORIDE 0.9% 1000ML 1,000 ML IV SCH (19:26)
[2021-03-30] MEDS ORDERED: IOPAMIDOL 370 MG/ML 200 ML INFUS..BTL INJ ONE (20:36)
[2021-03-30] MEDS ORDERED: SODIUM CHLORIDE 0.9% 50ML 50 ML ONE (20:36)
[2021-03-31] VITALS (9 sets, daily range): BP systolic 98–137; BP diastolic 61–76
[2021-03-31] MEDS: ONDANSETRON HCL INJ 2MG/ML 2ML 2 MG/ML VIAL IV PRN ×4 (01:43→19:26)
[2021-03-31] MEDS: Morphine 4mg Syringe 4 MG/ML INJ IV PRN ×4 (01:43→19:25)
[2021-03-31 05:49] LABS: BASOPHILS % 0.1 % (0.0-1.0); EOSINOPHILS # (AUTO) 0.1 (0.0-0.4); HEMATOCRIT 41.6 % (34.2-44.1); HEMOGLOBIN 13.3 g/dL (12.0-16.0); LYMPHOCYTES % 12.6 % (18.0-39.1); MEAN CORPUSCULAR HEMOGLOBIN 31.3 pg (28-32); MEAN CORPUSCULAR VOLUME 97.9 fL (81-99); MONOCYTES # (AUTO) 0.6 (0.2-0.8); MONOCYTES % 7.8 % (4.4-11.3); NEUTROPHILS # (AUTO) 6.5 (2.1-6.9); NEUTROPHILS % 78.3 % (38.7-80.0); PLATELET COUNT 167 x10e3/uL (140-360); RED BLOOD COUNT 4.25 x10e6/uL (3.6-5.1); RED CELL DISTRIBUTION WIDTH 13.2 % (11.7-14.4)
[2021-03-31 06:11] LABS: ALBUMIN 3.2 g/dL (3.5-5.0); ALBUMIN/GLOBULIN RATIO 1.5 (0.8-2.0); ANION GAP 12.8 mmol/L (8-16); CALCIUM 8.9 mg/dL (8.4-10.2); CREATININE, SERUM 0.85 mg/dL (0.57-1.11); POTASSIUM 3.8 mmol/L (3.5-5.1)
[2021-03-31] MEDS: SODIUM CHLORIDE 0.9% 1000ML 1,000 ML IV SCH ×3 (06:23→19:25)
[2021-03-31] MEDS ORDERED: DEPAKOTE ER250 MG PO (06:32)
[2021-03-31] MEDS ORDERED: LATUDA40 MG (07:19)
[2021-03-31] MEDS: BISACODYL 10 MG SUPP PR SCH (19:25)
[2021-04-01] VITALS (7 sets, daily range): BP systolic 103–123; BP diastolic 60–78
[2021-04-01] MEDS: ONDANSETRON HCL INJ 2MG/ML 2ML 2 MG/ML VIAL IV PRN ×6 (00:06→23:44)
[2021-04-01] MEDS: Morphine 4mg Syringe 4 MG/ML INJ IV PRN ×6 (00:06→23:44)
[2021-04-01] MEDS: SODIUM CHLORIDE 0.9% 1000ML 1,000 ML IV SCH ×3 (06:18→21:14)
[2021-04-01] MEDS: BISACODYL 10 MG SUPP PR SCH ×2 (09:00→21:15)
[2021-04-01] MEDS: CIPROFLOXACIN 400 MG/D5W 200ML 200 ML IV SCH ×2 (13:00→23:44)
[2021-04-02] VITALS (9 sets, daily range): BP systolic 108–131; BP diastolic 57–74
[2021-04-02] MEDS: ONDANSETRON HCL INJ 2MG/ML 2ML 2 MG/ML VIAL IV PRN ×4 (03:52→22:20)
[2021-04-02] MEDS: Morphine 4mg Syringe 4 MG/ML INJ IV PRN ×3 (03:52→16:41)
[2021-04-02] MEDS: SODIUM CHLORIDE 0.9% 1000ML 1,000 ML IV SCH ×3 (04:23→20:23)
[2021-04-02 09:23] LABS: BASOPHILS % 0.3 % (0.0-1.0); EOSINOPHILS # (AUTO) 0.1 (0.0-0.4); EOSINOPHILS % 0.8 % (0.0-6.0); HEMATOCRIT 39.2 % (34.2-44.1); HEMOGLOBIN 12.2 g/dL (12.0-16.0); LYMPHOCYTES # (AUTO) 1.3 (1.0-3.2); MEAN CORPUSCULAR HEMOGLOBIN 31.4 pg (28-32); MEAN CORPUSCULAR HGB CONC 31.1 g/dL (31-35); MONOCYTES # (AUTO) 0.5 (0.2-0.8); MONOCYTES % 7.9 % (4.4-11.3); NEUTROPHILS # (AUTO) 4.3 (2.1-6.9); NEUTROPHILS % 69.7 % (38.7-80.0); PLATELET COUNT 143 x10e3/uL (140-360); RED BLOOD COUNT 3.88 x10e6/uL (3.6-5.1); RED CELL DISTRIBUTION WIDTH 12.9 % (11.7-14.4)
[2021-04-02 09:50] LABS: ALANINE AMINOTRANSFERASE 222 IU/L (0-55); ALBUMIN/GLOBULIN RATIO 1.4 (0.8-2.0); ALKALINE PHOSPHATASE 77 IU/L (40-150); CHLORIDE 111 mmol/L (98-107); GLUCOSE 87 mg/dL (74-118); POTASSIUM 4.3 mmol/L (3.5-5.1); SODIUM 140 mmol/L (136-145)
[2021-04-02 11:15] LABS: ANION GAP 13.3 mmol/L (8-16); BLOOD UREA NITROGEN < 5 mg/dL (7-26); CARBON DIOXIDE 22 mmol/L (22-29); CREATININE, SERUM 0.69 mg/dL (0.57-1.11); EST GLOMERULAR FILTRATION RATE 89 ML/MIN (60-)
[2021-04-02 11:16] LABS: BUN/CREATININE RATIO 7 (6-25)
[2021-04-02] MEDS: KETOROLAC TROMETHAMINE 30 MG/ML VIAL IV PRN ×2 (11:19→20:10)
[2021-04-02] MEDS: BISACODYL 10 MG SUPP PR SCH ×2 (11:24→20:10)
[2021-04-02 11:33] LABS: CALCIUM 7.8 mg/dL (8.4-10.2)
[2021-04-02] MEDS: CIPROFLOXACIN 400 MG/D5W 200ML 200 ML IV SCH (13:49)
[2021-04-02] MEDS ORDERED: ACETAMINOPHEN 325 MG TAB PO PRN (18:45)
[2021-04-02] MEDS ORDERED: Morphine 2mg Syringe 2 MG/ML SYR IV PRN (22:15)
[2021-04-03] MEDS: CIPROFLOXACIN 400 MG/D5W 200ML 200 ML IV SCH ×2 (00:15→12:36)
[2021-04-03] MEDS: SODIUM CHLORIDE 0.9% 1000ML 1,000 ML IV SCH ×4 (03:43→20:21)
[2021-04-03] MEDS: KETOROLAC TROMETHAMINE 30 MG/ML VIAL IV PRN ×2 (04:15→13:55)
[2021-04-03 04:58] VITALS: BP 114/70
[2021-04-03 08:01] VITALS: BP 116/71
[2021-04-03 08:02] VITALS: BP 116/71
[2021-04-03] MEDS: BISACODYL 10 MG SUPP PR SCH (09:36)
[2021-04-03] MEDS ORDERED: QUETIAPINE FUMARATE 100 MG TAB PO SCH (10:30)
[2021-04-03] MEDS: BUPROPION HCL 150 MG TABCR PO SCH (11:30)
[2021-04-03 11:38] VITALS: BP 121/63
[2021-04-03] MEDS ORDERED: LURASIDONE HCL 120 MG PO SCH (12:00)
[2021-04-03] MEDS ORDERED: ESCITALOPRAM OXALATE 10 MG TAB PO SCH (13:00)
[2021-04-03 15:41] VITALS: BP 133/73
[2021-04-03] MEDS ORDERED: TOPIRAMATE 100 MG TAB PO SCH (17:00)
[2021-04-03] MEDS: GUANFACINE HCL 1 MG TAB PO SCH (17:00)
[2021-04-03] MEDS ORDERED: DIVALPROEX SODIUM 250 MG TAB...DR PO SCH (17:00)
[2021-04-03] MEDS ORDERED: TENEX PO SCH (17:00)
[2021-04-03] MEDS: (Amphet Asp/Amphet/D-Amphet (Adderall 20 Mg Tablet) 20 MG) PO SCH (17:00)
[2021-04-03 19:37] VITALS: BP 117/76
[2021-04-03] MEDS ORDERED: MAGNESIUM HYDROXIDE 30 ML UDC PO ONE (20:15)
[2021-04-03] MEDS ORDERED: MAGNESIUM HYDROXIDE 30 ML UDC ONE (20:22)
[2021-04-03] MEDS: ESCITALOPRAM OXALATE 10 MG TAB PO SCH (23:00)
[2021-04-03] MEDS: ZOLPIDEM TARTRATE 10 MG TAB PO SCH (23:00)
[2021-04-03] MEDS: DIVALPROEX SODIUM 250 MG TAB...DR PO SCH (23:00)
[2021-04-03] MEDS: HOME MEDICATION--PATIENTS OWN PO SCH (23:00)
[2021-04-04] VITALS (8 sets, daily range): BP systolic 117–147; BP diastolic 77–87
[2021-04-04] MEDS: CIPROFLOXACIN 400 MG/D5W 200ML 200 ML IV SCH ×2 (00:15→12:20)
[2021-04-04] MEDS: SODIUM CHLORIDE 0.9% 1000ML 1,000 ML IV SCH ×2 (05:53→17:11)
[2021-04-04] MEDS: (Amphet Asp/Amphet/D-Amphet (Adderall 20 Mg Tablet) 20 MG) PO SCH ×2 (08:54→17:07)
[2021-04-04] MEDS: BUPROPION HCL 150 MG TABCR PO SCH (08:57)
[2021-04-04] MEDS: GUANFACINE HCL 1 MG TAB PO SCH ×2 (08:57→17:09)
[2021-04-04] MEDS ORDERED: DOXYCYCLINE HY100 MG PO (11:33)
[2021-04-04] MEDS ORDERED: VITAMIN D3 COM1 EACH PO (11:33)
[2021-04-04] MEDS ORDERED: VITAMIN C500 MG PO (11:33)
[2021-04-04] MEDS ORDERED: B12 ACTIVE1000 MCG (11:34)
[2021-04-04] MEDS ORDERED: VITAMIN E400 UNI1 PO (11:34)
[2021-04-04] MEDS: DIVALPROEX SODIUM 250 MG TAB...DR PO SCH ×2 (12:20→22:25)
[2021-04-04] MEDS ORDERED: BISACODYL 10 MG SUPP PR ONE (13:15)
[2021-04-04] MEDS ORDERED: CITRATE OF MAGNESIA 300ML BOTTLE PO ONE (21:15)
[2021-04-04] MEDS: ZOLPIDEM TARTRATE 10 MG TAB PO SCH (21:33)
[2021-04-04] MEDS: ESCITALOPRAM OXALATE 10 MG TAB PO SCH (21:33)
[2021-04-04] MEDS: HOME MEDICATION--PATIENTS OWN PO SCH (21:39)
[2021-04-05] VITALS: BP 129/82
[2021-04-05] MEDS: CIPROFLOXACIN 400 MG/D5W 200ML 200 ML IV SCH (00:56)
[2021-04-05] MEDS: SODIUM CHLORIDE 0.9% 1000ML 1,000 ML IV SCH ×2 (01:29→10:07)
[2021-04-05 04:10] VITALS: BP 131/77
[2021-04-05 07:59] VITALS: BP 119/82
[2021-04-05 08:16] VITALS: BP 119/82
[2021-04-05] MEDS: (Amphet Asp/Amphet/D-Amphet (Adderall 20 Mg Tablet) 20 MG) PO SCH (09:07)
[2021-04-05] MEDS: BUPROPION HCL 150 MG TABCR PO SCH (09:07)
[2021-04-05] MEDS: GUANFACINE HCL 1 MG TAB PO SCH (09:09)
[2021-04-05] MEDS: DIVALPROEX SODIUM 250 MG TAB...DR PO SCH (11:08)
[2021-04-05 11:26] VITALS: BP 133/74
[2021-04-05] MEDS ORDERED: CIPROFLOXACIN 500 MG TAB PO SCH (12:15)
[2021-04-05] MEDS ORDERED: ONDANSETRON HCL 4 MG ORAL DISINTEGRATING TAB PO PRN (13:15)
== END 2021-04-05 13:01 | disposition home or self-care (01) | DRG 390 ==
LOC: ER 15:25 → ERHOLD 18:13 → MED/SURG3 22:32
DX: K56.600 Partial intestinal obstruction, unspecified as to cause (principal); F41.9 Anxiety disorder, unspecified; Z98.84 Bariatric surgery status; Z20.822 Contact with and (suspected) exposure to COVID-19
CPT/HCPCS: 36415; 74018; 74019; 74022; 74176; 80053; 81001; 83690; 84484; 85025; 85651; 86141; 93005; 96361; 99284; J1885; J2270; J2405; J7030; Q9967; U0002

== ENCOUNTER 2021-07-10 17:59 | Inpatient (IN) | payer BC ==
[~2021-07-10] VITALS: Ht 157.5 cm; Wt 56.7 kg
[~2021-07-10 17:59] MED LIST changes: +B12 ACTIVE1000 MCG; +DEPAKOTE ER250 MG PO; +DOXYCYCLINE HY100 MG PO; +LATUDA40 MG; +VITAMIN C500 MG PO; +VITAMIN D3 COM1 EACH PO; +VITAMIN E400 UNI1 PO
[2021-07-10 18:53] LABS: BASOPHILS % 0.6 % (0.0-1.0); EOSINOPHILS % 1.2 % (0.0-6.0); HEMATOCRIT 40.2 % (34.2-44.1); HEMOGLOBIN 13.6 g/dL (12.0-16.0); LYMPHOCYTES # (AUTO) 1.4 (1.0-3.2); LYMPHOCYTES % 42.9 % (18.0-39.1); MEAN CORPUSCULAR HEMOGLOBIN 32.4 pg (28-32); MEAN CORPUSCULAR HGB CONC 33.8 g/dL (31-35); MEAN CORPUSCULAR VOLUME 95.7 fL (81-99); MONOCYTES # (AUTO) 0.3 (0.2-0.8); MONOCYTES % 9.9 % (4.4-11.3); NEUTROPHILS # (AUTO) 1.5 (2.1-6.9); NEUTROPHILS % 45.1 % (38.7-80.0); PLATELET COUNT 180 x10e3/uL (140-360); RED CELL DISTRIBUTION WIDTH 13.6 % (11.7-14.4)
[2021-07-10 18:56] LABS: CLARITY,URINE CLEAR (CLEAR); COLOR,URINE YELLOW (YELLOW); KETONES,URINE NEGATIVE (NEGATIVE); LEUKOCYTE ESTERASE ,URINE NEGATIVE (NEGATIVE); NITRITE,URINE NEGATIVE (NEGATIVE); PROTEIN,URINE DIPSTICK NEGATIVE (NEGATIVE); URINE UROBILINOGEN 0.2 mg/dL (0.2 - 1)
[2021-07-10 19:00] LABS: EPITHELIAL CELLS,URINE RARE /LPF
[2021-07-10 19:11] LABS: ALBUMIN 3.7 g/dL (3.5-5.0); ALBUMIN/GLOBULIN RATIO 1.4 (0.8-2.0); ANION GAP 13.1 mmol/L (8-16); CALCIUM 8.7 mg/dL (8.4-10.2); CREATININE, SERUM 0.85 mg/dL (0.57-1.11); POTASSIUM 4.1 mmol/L (3.5-5.1)
[2021-07-10] MEDS ORDERED: IOPAMIDOL 370 MG/ML 100 ML INFUS..BTL INJ ONE ×2 (20:21→22:59)
[2021-07-10] MEDS ORDERED: ONDANSETRON HCL INJ 2MG/ML 2ML 2 MG/ML VIAL IV PRN (22:00)
[2021-07-10] MEDS ORDERED: Morphine 4mg Syringe 4 MG/ML INJ IV PRN (22:00)
[2021-07-11] MEDS ORDERED: ADDERALL 20 MG20 MG PO (00:15)
[2021-07-11] MEDS ORDERED: CALCIUM ACETAT667 MG PO (00:15)
[2021-07-11] MEDS ORDERED: OXCARBAZEPINE150 MG PO (00:15)
[2021-07-11] MEDS ORDERED: LEXAPRO20 MG PO (00:15)
[2021-07-11] MEDS ORDERED: DEXTROAMP-AMPHE20 M1 PO (00:15)
[2021-07-11] MEDS ORDERED: INTUNIV3 MG PO (00:15)
[2021-07-11] MEDS ORDERED: VITAMIN D310 MC1 PO (00:15)
[2021-07-11] MEDS ORDERED: DICLOFENAC SODI75 MG PO (00:15)
[2021-07-11] MEDS ORDERED: MULTI-VITAMIN1 EACH PO (00:15)
[2021-07-11] MEDS ORDERED: PROBIOTIC DIGE1 EACH PO (00:15)
[2021-07-11] MEDS: SODIUM CHLORIDE 0.9% 1000ML 1,000 ML IV SCH ×4 (05:30→21:28)
[2021-07-11 06:10] LABS: BASOPHILS % 0.5 % (0.0-1.0); EOSINOPHILS % 1.8 % (0.0-6.0); HEMATOCRIT 37.1 % (34.2-44.1); HEMOGLOBIN 12.3 g/dL (12.0-16.0); LYMPHOCYTES % 47.7 % (18.0-39.1); MEAN CORPUSCULAR HEMOGLOBIN 32.4 pg (28-32); MEAN CORPUSCULAR HGB CONC 33.2 g/dL (31-35); MEAN CORPUSCULAR VOLUME 97.6 fL (81-99); MONOCYTES # (AUTO) 0.3 (0.2-0.8); MONOCYTES % 12.8 % (4.4-11.3); NEUTROPHILS # (AUTO) 0.8 (2.1-6.9); NEUTROPHILS % 36.7 % (38.7-80.0); PLATELET COUNT 151 x10e3/uL (140-360); RED CELL DISTRIBUTION WIDTH 13.6 % (11.7-14.4)
[2021-07-11 06:22] LABS: ALBUMIN/GLOBULIN RATIO 1.3 (0.8-2.0); ANION GAP 10.7 mmol/L (8-16); CALCIUM 7.4 mg/dL (8.4-10.2); CREATININE, SERUM 0.76 mg/dL (0.57-1.11); POTASSIUM 3.7 mmol/L (3.5-5.1)
[2021-07-11 11:15] VITALS: BP 108/57
[2021-07-11 11:16] VITALS: BP 108/57
[2021-07-11 11:18] VITALS: BP 108/57
[2021-07-11 16:30] VITALS: BP 110/68
[2021-07-11] MEDS: OXCARBAZEPINE 300 MG TAB PO SCH (16:46)
[2021-07-11] MEDS: MULTIVITAMINS/MINERALS TAB PO SCH (16:46)
[2021-07-11] MEDS: CALCIUM ACETATE 667 MG GELCAP PO SCH (16:46)
[2021-07-11] MEDS: GUANFACINE HCL 1 MG PO SCH (16:46)
[2021-07-11] MEDS: DOXYCYCLINE HYCLATE TABLET 100 MG TAB PO SCH (16:46)
[2021-07-11] MEDS: ASCORBIC ACID 500 MG TAB PO SCH (16:46)
[2021-07-11] MEDS: CHOLECALCIFEROL 400 UNIT TAB PO SCH (16:47)
[2021-07-11] MEDS ORDERED: DEXTROAMPHETAMINE PO SCH (17:00)
[2021-07-11] MEDS ORDERED: AMPHETAMINE PO SCH (17:00)
[2021-07-11] MEDS ORDERED: DICLOFENAC SOD 50 MG TAB PO SCH (17:00)
[2021-07-11] MEDS ORDERED: [UNRECOGNIZED DRUG - OTHER] PO SCH (17:00)
[2021-07-11 20:00] VITALS: BP 100/59
[2021-07-11] MEDS: ZOLPIDEM TARTRATE 10 MG TAB PO SCH (21:29)
[2021-07-12] VITALS (7 sets, daily range): BP systolic 93–124; BP diastolic 58–79
[2021-07-12] MEDS: SODIUM CHLORIDE 0.9% 1000ML 1,000 ML IV SCH ×3 (05:50→23:05)
[2021-07-12 06:56] LABS: ALBUMIN 2.9 g/dL (3.5-5.0); BILIRUBIN,DIRECT 0.2 mg/dL (0.0-0.5)
[2021-07-12] MEDS: NON-FORMULARY MEDICATION (Amphet Asp/Amphet/D-Amphet (Adderall 20 Mg Tablet) 20 MG) PO SCH ×2 (07:30→11:30)
[2021-07-12] MEDS: GUANFACINE HCL 1 MG PO SCH ×2 (08:51→17:00)
[2021-07-12] MEDS: CHOLECALCIFEROL 400 UNIT TAB PO SCH ×2 (08:51→17:16)
[2021-07-12] MEDS: MULTIVITAMINS/MINERALS TAB PO SCH ×2 (08:51→17:16)
[2021-07-12] MEDS: OXCARBAZEPINE 300 MG TAB PO SCH ×2 (08:51→17:16)
[2021-07-12] MEDS: BUPROPION HCL 150 MG TABCR PO SCH (08:51)
[2021-07-12] MEDS: LACTOBACILLUS ACIDOPHILUS CAPSULE PO SCH (08:51)
[2021-07-12] MEDS: ESCITALOPRAM OXALATE 10 MG TAB PO SCH (08:51)
[2021-07-12] MEDS: CALCIUM ACETATE 667 MG GELCAP PO SCH ×2 (08:51→17:16)
[2021-07-12] MEDS: ASCORBIC ACID 500 MG TAB PO SCH ×2 (08:51→17:16)
[2021-07-12] MEDS: DOXYCYCLINE HYCLATE TABLET 100 MG TAB PO SCH ×2 (08:51→17:16)
[2021-07-12] MEDS ORDERED: ONDANSETRON HCL 4 MG ORAL DISINTEGRATING TAB PO PRN (12:15)
[2021-07-12] MEDS ORDERED: GADOBENATE DIMEGLUMINE 1 ML IV ONE (13:17)
[2021-07-12] MEDS: ZOLPIDEM TARTRATE 10 MG TAB PO SCH (21:00)
[2021-07-13] VITALS: BP 103/61
[2021-07-13 03:59] VITALS: BP 112/59
[2021-07-13] MEDS: SODIUM CHLORIDE 0.9% 1000ML 1,000 ML IV SCH ×2 (06:00→14:00)
[2021-07-13] MEDS: NON-FORMULARY MEDICATION (Amphet Asp/Amphet/D-Amphet (Adderall 20 Mg Tablet) 20 MG) PO SCH ×2 (07:30→11:30)
[2021-07-13 08:42] VITALS: BP 108/66
[2021-07-13] MEDS ORDERED: GUANFACINE HCL 1 MG TAB PO SCH (09:00)
[2021-07-13] MEDS ORDERED: OXCARBAZEPINE 300 MG TAB PO SCH (09:00)
[2021-07-13] MEDS: ESCITALOPRAM OXALATE 10 MG TAB PO SCH (09:00)
[2021-07-13] MEDS: BUPROPION HCL 150 MG TABCR PO SCH (09:00)
[2021-07-13] MEDS ORDERED: ASCORBIC ACID 500 MG TAB PO SCH (09:00)
[2021-07-13] MEDS ORDERED: DOXYCYCLINE HYCLATE TABLET 100 MG TAB PO SCH (09:00)
[2021-07-13] MEDS ORDERED: MULTIVITAMINS/MINERALS TAB PO SCH (09:00)
[2021-07-13] MEDS ORDERED: GUANFACINE HCL 1 MG PO SCH (09:00)
[2021-07-13] MEDS ORDERED: CALCIUM ACETATE 667 MG GELCAP PO SCH (09:00)
[2021-07-13] MEDS ORDERED: CHOLECALCIFEROL 400 UNIT TAB PO SCH (09:00)
[2021-07-13] MEDS: LACTOBACILLUS ACIDOPHILUS CAPSULE PO SCH (09:00)
[2021-07-13 12:24] VITALS: BP 118/69
[2021-07-13 14:20] VITALS: BP 126/77
[2021-07-13] MEDS ORDERED: LIDOCAINE HCL 2% LOCAL INJ 5 ML SDV VIAL INJ ONE (17:31)
[2021-07-13] MEDS ORDERED: PROPOFOL IV EMULSION 10 MG/ML 20 ML VIAL ONE (17:31)
== END 2021-07-13 17:05 | disposition home or self-care (01) | DRG 392 ==
LOC: ER 19:54 → ERHOLD 21:57 → MED/SURG 07-11 10:55 → OBSVTOIN 07-12 16:05
PROC: 0DB68ZX Excision of Stomach, Via Natural or Artificial Opening Endoscopic, Diagnostic (ICD-10-PCS; principal; 2021-07-13 13:28)
DX: K31.89 Other diseases of stomach and duodenum (principal); R74.01 Elevation of levels of liver transaminase levels; F32.9 Major depressive disorder, single episode, unspecified; F41.9 Anxiety disorder, unspecified; G89.29 Other chronic pain; M54.9 Dorsalgia, unspecified; R16.0 Hepatomegaly, not elsewhere classified
CPT/HCPCS: 36415; 43239; 74177; 74183; 80053; 80076; 81001; 82948; 83690; 85025; 86705; 86706; 87340; 87521; 88305; 88312; 93005; 99284; G0378; J2001; J7030; Q9967; U0002

== ENCOUNTER → 2022-05-11 | Day surgery (SDC) | payer BC ==
[~2022-05-11] MED LIST changes: +CALCIUM ACETAT667 MG PO; +DEXTROAMP-AMPHE20 M1 PO; +DICLOFENAC SODI75 MG PO; +EPHEDRINE SULFATE INJ 50 MG/ML VIAL ONE; +FAMOTIDINE20 MG PO; +FENTANYL CITRATE/PF 100MCG/2 ML INJ ONE; +HYOSCYAMINE SULFATE 0.5 MG/ML INJ ONE; +INTUNIV3 MG PO; +LEXAPRO20 MG PO; +MIDAZOLAM HCL 2 MG/2 ML VIAL ONE; +OXCARBAZEPINE150 MG PO; +PANTOPRAZOLE SO20 MG; +PROBIOTIC DIGE1 EACH PO; +PROPOFOL IV EMULSION 10 MG/ML 20 ML VIAL ONE; +VITAMIN D310 MC1 PO
[2022-05-11 11:45] VITALS: BP 118/76
== END | disposition home or self-care (01) ==
LOC: OR 07:50
PROVIDERS: ATTEND Internal Medicine Gastroenterology
DX: Z12.11 Encounter for screening for malignant neoplasm of colon (principal); K63.5 Polyp of colon; K57.30 Diverticulosis of large intestine without perforation or abscess without bleeding; K59.00 Constipation, unspecified; K64.8 Other hemorrhoids; K29.60 Other gastritis without bleeding; Z71.3 Dietary counseling and surveillance; Z98.84 Bariatric surgery status; R03.0 Elevated blood-pressure reading, without diagnosis of hypertension; Z71.89 Other specified counseling; F90.9 Attention-deficit hyperactivity disorder, unspecified type; F31.9 Bipolar disorder, unspecified; F41.9 Anxiety disorder, unspecified; Z01.810 Encounter for preprocedural cardiovascular examination; Z79.899 Other long term (current) drug therapy
CPT/HCPCS: 45385; 81025; 93005; J1980; J2250; J2704; J3010; 45378; 45380